=== PATIENT | female | born 1945 | race Caucasian/White ===

== ENCOUNTER 2017-07-15 10:13 | Emergency (ER) | payer MEDICARE ==
--- NOTE | 2017-07-15 11:23 | RAD ---
THREE VIEWS OF THE LEFT SHOULDER: HISTORY: Fell at home with left shoulder pain and deformity. FINDINGS: Three views of the left shoulder show a comminuted fracture of the left humeral neck. Mild degenerat adriana changes are seen in the glenohumeral joint. A pacemaker is partially visualized. IMPRESSION: Comminuted proximal left humeral fracture. POS: [facility]
[2017-07-15] MEDS ORDERED: Morphine 4 MG/ML VIAL ONE (11:40)
--- NOTE | 2017-07-15 12:30 | RAD ---
TWO VIEWS LEFT HUMERUS: Indication: Proximal humerus fracture. FINDINGS: There is a three-part proximal humerus fracture with fracture extending through the metadiaphyseal re gion and through the humeral head with a displaced greater tuberosity fracture component. No addition al fracture is grossly evident. There is partial visualization of a left chest wall pacemaker. IMPRESSION: Comminuted three-part proximal humerus fracture. POS: [facility]
== END 2017-07-15 13:39 | disposition home or self-care (01) ==
LOC: ERS 10:13
DX: S42.252A Displaced fracture of greater tuberosity of left humerus, initial encounter for closed fracture (principal); I11.0 Hypertensive heart disease with heart failure; I50.9 Heart failure, unspecified; W18.30XA Fall on same level, unspecified, initial encounter; Y92.009 Unspecified place in unspecified non-institutional (private) residence as the place of occurrence of the external cause
CPT/HCPCS: 96372; J2270

== ENCOUNTER 2017-07-22 06:56 | Outpatient (CLI) | payer MEDICARE | END 2017-07-22 06:57 | disposition home or self-care (01) | LOC: BICCT 06:56 | PROVIDERS: ATTEND Orthopaedic Surgery | DX: Z53.9 Procedure and treatment not carried out, unspecified reason (principal) ==

== ENCOUNTER 2017-08-04 12:07 | Inpatient (IN) | payer MEDICARE ==
[~2017-08-04 12:07] MED LIST: ISOVUE-370 76%-LOCM 1 ML ONE
--- NOTE | 2017-08-04 12:58 | RAD ---
AP CHEST: Indication: Difficulty breathing and taking full breaths for three days. Comparison: 11-14-16 FINDINGS: There is moderate cardiomegaly with pulmonary vascular congestion. There is suspicion for small bilat eral pleural effusions, left greater than right. AICD and midline sternotomy changes are similar. Chr onic osseous changes appear similar to the comparison study. There has been interval development of a 3-part proximal left humerus fracture when compared to the prior dated 11-14-16. This was seen on a r adiograph of the left humerus dated 07-15-17. IMPRESSION: 1. Findings suggesting mild CHF. Continued follow up is recommended. 2. Proximal left humerus fracture as seen on comparison study dated 07-15-17. POS: [facility]
[2017-08-04 13:41] LABS: #Basophils 0.1 thou/uL (0.0-0.2); #Eosinphils 0.2 thou/uL (0.0-0.7); #Lymphocytes 2.4 thou/uL (1.20-3.40); #Monocytes 0.5 thou/uL (0.11-0.59); #Neutrophils 7.5 thou/uL (1.40-6.50); %Basophils 0.5 % (0.0-1.0); %Eosinophils 1.5 % (0.0-10.0); %Lymphocytes 22.7 % (21.0-51.0); %Monocytes 4.5 % (0.0-10.0); %Neutrophils 70.9 % (42.0-75.0); Hemoglobin 12.3 g/dL (12.0-16.0); Mean Corpuscular HGB CONC 32.4 g/dL (32.0-36.0); Mean Corpuscular Hemoglobin 27.9 pg (27.0-31.0); Mean Corpuscular Volume 85.9 fl (81.0-99.0); Mean Platelet Volume 7.7 fL (7.4-10.4); Platelet Count 290 thou/uL (130-400); RBC Distribution Width 15.4 % (11.5-14.5); White Blood Cell (WBC) Count 10.6 thou/uL (4.8-10.8)
[2017-08-04 14:04] LABS: ALT (SGPT) 16 U/L (8-55); AST (SGOT) 19 U/L (5-34); Albumin 3.2 g/dL (3.4-4.8); Alkaline Phosphatase 108 U/L (40-150); Anion Gap 12 mmol/L (10-20); BUN (Urea Nitrogen) 19 mg/dL (9.8-20.1); Bilirubin, Total 0.7 mg/dL (0.2-1.2); CK (CPK) 73 U/L (29-168); Calc. Creatinine Clearance 0 mL/min (70-130); Calcium 9.2 mg/dL (7.8-10.44); Carbon Dioxide 29 mmol/L (23-31); Chloride 105 mmol/L (98-107); Estimated GFR-MDRD 88; Globulin 3.6 g/dL (2.4-3.5); Glucose 113 mg/dL (83-110); Protein, Total 6.8 g/dL (6.0-8.3); Sodium 143 mmol/L (136-145)
[2017-08-04 14:07] LABS: CKMB 2.1 ng/mL (0-6.6)
[2017-08-04 14:12] LABS: Potassium 2.9 mmol/L (3.5-5.1)
[2017-08-04 14:17] LABS: Troponin I 6.269 ng/mL (< 0.028)
[2017-08-04] MEDS ORDERED: Lorazepam 2 MG/ML VIAL ONE (14:37)
[2017-08-04] MEDS ORDERED: Morphine 4 MG/ML VIAL ONE (14:37)
[2017-08-04] MEDS ORDERED: Potassium Chloride 20 MEQ TAB ONE (14:38)
[2017-08-04] MEDS ORDERED: Nitroglycerin 2% Ointment 1 INCH/1 GM Packet ONE (15:25)
[2017-08-04 15:51] LABS: Magnesium 2.1 mg/dL (1.6-2.6); Phosphorus 3.4 mg/dL (2.3-4.7)
--- NOTE | 2017-08-04 16:03 | CT ---
CT ANGIOGRAM OF CHEST PERFORMED WITH INTRAVENOUS CONTRAST ENHANCEMENT WITH 3D RECONSTRUCTIONS: History: Cough, dyspnea. Comparison: 06-03-15 FINDINGS: The lungs are clear of any focal infiltrative process. Some atelectatic type changes in the lung base s and small bilateral pleural effusions, right larger than left. There is an enlarged node near the level of the aorticopulmonary window. It measures 2 cm in short ax is dimension. It has been present on previous exams. In reviewing a 09-02-10 study it measures approxi mately 15-16 mm in short axis dimension with fairly minimal interval overedge sewer a long time frame. P ost op sternotomy changes are present. A left breast prosthesis is noted. Visualized liver parenchyma shows no focal abnormalities. IMPRESSION: 1. Bibasilar atelectatic lung changes with some pleural changes along the left lateral thoracic wall which although not present on the previous 2014 study still has more of a chronic appearance. Some of this could be potentially related to some type of previous treatment such as radiation. I am not cer tain. I do not have a definite history of left breast cancer, even given left breast prosthesis. Clin ical correlation is recommended. 2. No CT evidence for pulmonary embolus. 3. Adenopathy in the aorticopulmonary window region, minimally increased as compared to the [address]. Given the fairly minimal interval change, I would favor that these are reactive nodes. POS: [facility]
[2017-08-04] MEDS ORDERED: Enoxaparin Sodium 30 MG/0.3 ML SYRINGE ONE (16:11)
[2017-08-04] MEDS ORDERED: Enoxaparin Sodium 100 MG/ML SYRINGE ONE ×2 (16:11→16:18)
[2017-08-04] MEDS ORDERED: Enoxaparin Sodium 40 MG/0.4 ML SYRINGE ONE (16:17)
[2017-08-04 18:55] LABS: Troponin I 6.431 ng/mL (< 0.028)
[2017-08-04] MEDS ORDERED: Aspirin 325 MG TAB PO SCH (19:00)
[2017-08-04] MEDS ORDERED: Furosemide 40 MG/4 ML VIAL SLOW IVP SCH (19:00)
[2017-08-04] MEDS ORDERED: Potassium Chloride 20 MEQ TAB PO SCH ×2 (19:15→21:00)
--- NOTE | 2017-08-04 19:51 | CON ---
DATE OF CONSULTATION: 08/04/2017 REASON FOR CONSULTATION: Non-STEMI and heart failure. PRIMARY FEED PROJECT ENGINEER: Dr. Jose Manuel Brar. HISTORY OF PRESENT ILLNESS: Ms. Fleming is a very pleasant 71-year-old white female who comes to the ospital for increased shortness of breath. She stated that for the last 4 days, she has been noticin g slow increase in her shortness of breath. She tried to make it go away by increasing her Lasix dos e, which she sometimes does and is able to stay out of the hospital. She noted that her breathing wa s just getting worse, so today, she decided to come in for evaluation. She was found to be in heart failure, given a dose of IV Lasix and Cardiology was consulted. She also had a troponin drawn that w as higher than it has been before at 6.2 with a normal CK-MB. She denies any chest pain, tightness, pressures, just shortness of breath as above. PAST MEDICAL HISTORY: 1. Ischemic cardiomyopathy with previous bypass. 2. Severe cardiomyopathy with an EF of 20-25%. 3. Placement of AICD. 4. Hypertension. 5. Hyperlipidemia. 6. Obstructive sleep apnea. PAST SURGICAL HISTORY: 1. Coronary artery bypass grafting with a LEIVA to the LAD, a vein to an OM, and a vein to PDA. This was in 2010. 2. Pseudoaneurysm repair in right femoral artery after a central line was placed. 3. Left mastectomy. ALLERGIES: LISINOPRIL gives her cough. OUTPATIENT MEDICATIONS: Include, 1. Aldactone 25 mg a day. 2. Losartan 100 mg a day. 3. Garlic. 4. Furosemide 40 mg a day. 5. Celexa. 6. Coreg 12.5 mg p.o. b.i.d. 7. Lipitor 20 mg at bedtime. 8. Aspirin 325 a day. SOCIAL HISTORY: No alcohol, tobacco or drugs. FAMILY HISTORY: Significant for early coronary artery disease. REVIEW OF SYSTEMS: A 12-point review of systems was done and is all negative unless stated in the hi story of present illness. PHYSICAL EXAMINATION: VITAL SIGNS: Temperature 97.2, pulse 103, respiration rate 18, satting 92% on 3 liters nasal cannula . GENERAL: Awake, alert, oriented x3, in mild respiratory distress. HEENT: Normocephalic, atraumatic. NECK: Supple. LUNGS: Have bilateral crackles at the bases CARDIOVASCULAR: S1, S2, no S3 or S4. There is a grade 2/6 systolic murmur in the right upper sterna l border. ABDOMEN: Soft, positive bowel sounds. There is a large reducible hernia in the lower abdomen on the right lower quadrant. EXTREMITIES: 1+ edema. SKIN: Warm and dry. LABORATORY WORK: Reviewed. White count of 10.6, hemoglobin of 12.3, hematocrit of 37, platelet coun t of 290. Coags, D-dimer of 3.23. Chemistry with a sodium of 143, potassium was low at 2.9, chlorid e of 105, carbon dioxide of 29, anion gap of 12, BUN of 19, creatinine 0.66, GFR of 88, glucose of 11 3. Lactic acid was normal. CK-MB was 2.1, troponin at 6.2. BNP was 1262, albumin of 3.2. EKG was reviewed, no ischemic changes. Chest x-ray: Mild CHF proximal left humerus fracture which was seen back in early July. CT of the chest showed no evidence of pulmonary embolism. There are bibasilar atelectatic lung gilmore es with pleural changes along left lateral thoracic wall. Adenopathy in the aortopulmonary window re gion. ASSESSMENT AND PLAN: 1. Acute on chronic systolic heart failure. 2. Non-ST elevation myocardial infarction. 3. Severe ischemic cardiomyopathy, ejection fraction of 20-25%. PLAN: 1. Continue IV diuresis. 2. Currently she is unable to lay flat for further risk stratification for the heart catheterization . She had a heart catheterization back in 2014. Her LEIVA to LAD was patent. The vein graft to an O M, and a vein graft to right were both patent. She is about 7 years out of her bypass. She may need to have this re-imaged. This is the highest troponin she has had during her admissions for heart fa ilure. 3. We will attempt to do heart catheterization once she is able to lay flat. She is unable at this time. 4. We will continue IV Lasix at 40 mg twice a day. 5. Aggressive potassium replacement. Thank you for letting us to participate in the care of your patient. We will follow.
[2017-08-04] MEDS ORDERED: Calcium Carbonate 500 MG ChewTAB PO PRN (20:02)
[2017-08-04] MEDS ORDERED: Mag-Al 1200 mg/1200 mg/30 ML UDCUP PO PRN (20:02)
[2017-08-04] MEDS ORDERED: Senokot 8.6 MG TAB PO PRN (20:02)
--- NOTE | 2017-08-04 20:19 | PDOC.EVN ---
Event Note - Event Note Event Note: Patient seen and examined. Orders completed.
[2017-08-04 20:38] LABS: Troponin I 7.102 ng/mL (< 0.028)
[2017-08-05] MEDS: Famotidine 20 MG TAB PO SCH ×3 (00:17→22:46)
[2017-08-05] MEDS: Docusate 100 MG CAP PO SCH ×3 (00:29→22:45)
[2017-08-05] MEDS: Carvedilol 3.125 MG TAB PO SCH ×4 (00:29→22:45)
[2017-08-05] MEDS: Nitroglycerin 0.4 MG TAB (25 Tab Bottle) PO PRN ×2 (03:09→03:14)
[2017-08-05] MEDS: Furosemide 40 MG/4 ML VIAL SLOW IVP SCH ×2 (04:59→13:44)
[2017-08-05] MEDS ORDERED: Lorazepam 1 MG TAB PO SCH (05:15)
[2017-08-05 06:19] LABS: #Eosinphils 0.1 thou/uL (0.0-0.7); #Lymphocytes 1.7 thou/uL (1.20-3.40); #Monocytes 0.6 thou/uL (0.11-0.59); #Neutrophils 7.2 thou/uL (1.40-6.50); %Basophils 0.5 % (0.0-1.0); %Eosinophils 1.4 % (0.0-10.0); %Lymphocytes 17.4 % (21.0-51.0); %Monocytes 6.3 % (0.0-10.0); %Neutrophils 74.5 % (42.0-75.0); Hemoglobin 11.6 g/dL (12.0-16.0); Mean Corpuscular HGB CONC 32.2 g/dL (32.0-36.0); Mean Corpuscular Hemoglobin 27.7 pg (27.0-31.0); Mean Corpuscular Volume 86.1 fl (81.0-99.0); Platelet Count 277 thou/uL (130-400); RBC Distribution Width 15.2 % (11.5-14.5); Red Blood Cell (RBC) Count 4.19 mill/uL (4.20-5.40); White Blood Cell (WBC) Count 9.7 thou/uL (4.8-10.8)
--- NOTE | 2017-08-05 06:28 | HP ---
DATE OF ADMISSION: 08/04/2017 The patient was seen and examined on 08/04/2017. CHIEF COMPLAINT: Shortness of breath. HISTORY OF PRESENT ILLNESS: Patient is a 71-year-old female with ischemic cardiomyopathy and chronic systolic heart failure who presented to the hospital with worsening shortness of breath over the las t 3-4 days. The shortness of breath is mainly on [id number] exertion. She denies any chest pa in, palpitations, lightheadedness, dizziness, or syncope. No recent immobilization or travel. She h ad some cough which was essentially nonproductive. She is compliant with fluid restriction including her medications. Her last hospitalization at this facility was in 11/2013 for hypertensive crisis a nd congestive heart failure exacerbation. In the emergency room, her initial vital signs showed temperature 97.7, respirations 24, pulse rate o f 122 with a blood pressure of 136/103 with O2 saturation of 92% on 2-liter nasal cannula. Her EKG s howed sinus rhythm with multiple PVCs. BNP was 1262 with troponin of 6.[address] rashard ogram of the chest was negative for pulmonary embolism. It showed pulmonary vascular congestion. Sh e received 1 mg/kg dose of Lovenox with nitro-patch, potassium, and DuoNeb in the emergency room. PAST MEDICAL HISTORY: 1. Chronic systolic heart failure, ejection fraction 20% to 25% range. 2. Morbid obesity with BMI of 42.6 3. Chronic systolic heart failure, ejection fraction 20% to 25% range. 4. Coronary artery disease, status post CABG. 5. Hypertension. 6. Hyperlipidemia. 7. Obstructive sleep apnea, not tolerating CPAP. 8. Anxiety. PAST SURGICAL HISTORY: 1. Coronary artery bypass grafting. 2. Left mastectomy. 3. Hysterectomy. 4. Cholecystectomy. 5. Appendectomy. 6. Right knee surgery. ALLERGIES: LISINOPRIL. CURRENT HOME MEDICATIONS: The patient is unable to recall any of her home medications. FAMILY HISTORY: Positive for heart disease in several family members. SOCIAL HISTORY: The patient currently lives at home. No tobacco, alcohol, or drug use. CODE STATUS: She is FULL CODE, makes her own decisions with the help of her family. REVIEW OF SYSTEMS: The following complete review of systems was negative, unless otherwise mentioned in the HPI or below: Constitutional: Weight loss or gain, ability to conduct usual activities. Sk in: Rash, itching. Eyes: Double vision, pain. ENT/Mouth: Nose bleeding, neck stiffness, pain, te nderness. Cardiovascular: Palpitations, dyspnea on exertion, orthopnea. Respiratory: Shortness of breath, wheezing, cough, hemoptysis, fever or night sweats. Gastrointestinal: Poor appetite, abdom inal pain, heartburn, nausea, vomiting, constipation, or diarrhea. Genitourinary: Urgency, frequenc y, dysuria, nocturia. Musculoskeletal: Pain, swelling. Neurologic/Psychiatric: Anxiety, depressio n. Allergy/Immunologic: Skin rash, bleeding tendency. PHYSICAL EXAMINATION: VITAL SIGNS: As discussed above. GENERAL: A 71-year-old female in mild respiratory distress. Able to complete short phrases. HEENT: Head, atraumatic, normocephalic. Sclerae are anicteric. Moist mucous membranes. No oral le alex. NECK: Supple. JVD elevated. No carotid bruit. LUNGS: Showed bibasilar crackles with scattered rhonchi. No significant wheezing. Lungs were symme trical. Trachea in midline. ABDOMEN: Soft, obese. Bowel sounds present. EXTREMITIES: 2+ edema in bilateral lower extremities. No calf tenderness. NEUROLOGIC: Grossly nonfocal. Moves all four extremities. Power was 5/5 in all extremities. PSYCHIATRIC: The patient is alert, awake, oriented x3. SKIN: Warm and dry. LYMPH NODES: No palpable lymph nodes in the neck. MUSCULOSKELETAL: No joint swelling or tenderness. PERIPHERAL VASCULAR: Radial pulses palpable bilaterally, low volume. LABORATORY AND DIAGNOSTIC FINDINGS: As discussed above. 1. WBC was 10.6 with platelet count 290 and H and H of 12.3. 2. D-dimer was 3.23. 3. Influenza testing was negative. 4. Repeat troponin was 7.102. 5. CT angiogram of the chest by my review as discussed above. Chest x-ray by my review showed pulmo nary vascular congestion. IMPRESSION: 1. Acute on chronic systolic heart failure exacerbation, probably precipitated by ischemic event. 2. Non-ST elevation myocardial infarction. 3. Ischemic cardiomyopathy with ejection fraction 20% to 25%. 4. Obstructive sleep apnea, not tolerating CPAP. 5. Morbid obesity with a body mass index of 42.6. 6. Hypokalemia. 7. Chronic kidney disease, stage 2. 8. Elevated D-dimer with negative CT angiogram of the chest. 9. Hypertensive urgency. 10. Hyperlipidemia. 11. Anxiety. PLAN: The patient will be monitored in the telemetry unit. We will start her on diuresis. Replace potassium. Consult Cardiology. One dose of Lovenox has been given. Patient is unable to lie down o r cardiac catheterization at this time. We will repeat labs in a.m., fluid restriction, heart failur e education, aspirin. We will confirm her home medications. Plan of care was discussed with the patient in detail. She stated understanding. Low dose beta-bloc ker will be resumed based on last discharge summary.
[2017-08-05 06:41] LABS: ALT (SGPT) 13 U/L (8-55); AST (SGOT) 19 U/L (5-34); Albumin 3.3 g/dL (3.4-4.8); Alkaline Phosphatase 106 U/L (40-150); Anion Gap 17 mmol/L (10-20); BUN (Urea Nitrogen) 15 mg/dL (9.8-20.1); Calc. Creatinine Clearance 143 mL/min (70-130); Carbon Dioxide 25 mmol/L (23-31); Chloride 103 mmol/L (98-107); Estimated GFR-MDRD Greater than 90; Globulin 3.5 g/dL (2.4-3.5); Glucose 99 mg/dL (83-110); Magnesium 1.9 mg/dL (1.6-2.6); Phosphorus 3.2 mg/dL (2.3-4.7); Potassium 3.7 mmol/L (3.5-5.1); Protein, Total 6.8 g/dL (6.0-8.3); Sodium 141 mmol/L (136-145)
[2017-08-05] MEDS ORDERED: Potassium Chloride 20 MEQ TAB PO SCH (08:00)
[2017-08-05] MEDS: Aspirin 325 mg Enteric Coated Tablet PO SCH (09:37)
[2017-08-05 10:51] LABS: Troponin I 5.331 ng/mL (< 0.028)
[2017-08-05] MEDS: Potassium Chloride 20 MEQ TAB PO SCH ×2 (11:46→17:34)
--- NOTE | 2017-08-05 12:00 | PDOC.CTH ---
Cardiology Progress Note - Subjective She continues to be SOB but has had a mild improvement. She is about 2L negative so far. She tried sitting up on the side of the bed and became significantly SOB. - Objective Vital Signs Temp Pulse Resp BP Pulse Ox 08/05/17 08:08 96.8 F L 94 17 134/97 H 97 08/05/17 04:21 89 20 147/89 H 100 08/05/17 04:00 99.9 F H 86 18 145/65 H 95 08/05/17 03:20 78 18 160/88 H 98 08/05/17 03:05 98.3 F 109 H 20 136/67 90 L Weight 240 lb 11.2 oz 08/04/17 08/05/17 08/06/17 06:59 06:59 06:59 Intake Total 760 Output Total 3150 Balance -2390 - Physical Examination General/Neuro: alert & oriented x3, NAD Neck: no JVD present Lungs: other: (reduced breath sounds. ) Heart: RRR Abdomen: NT/ND Extremities: + edema B (2+) - Telemetry Telemetry Rhythm: NSR, PVC's - Labs Result Diagrams: 08/05/17 05:12 08/05/17 05:12 Troponin/CKMB CK-MB (CK-2) 2.1 ng/mL (0-6.6) 08/04/17 13:20 Troponin I 5.331 ng/mL (< 0.028) H* 08/05/17 05:12 - Assessment/Plan 1. Acute on chronic systolic heart failure 2. NSTEMI 3. Severe ischemic dilated CM, EF at 20-25% 4. CAD s/p CABG on 2010 5. Presence of an AICD. PLAN: - Continue IV diuresis. - Fluid restrict - Continue BB, consider entresto in the near future if BP allows.
[2017-08-05 12:50] LABS: Bacteria/HPF None Seen HPF (None Seen); Bilirubin Small (Negative); Blood, Urine Moderate (Negative); Clarity CLEAR (Clear); Glucose, Urine (Dipstick) Negative (Negative); Hyaline Casts/LPF 4-6 HYALINE CAST LPF (0-3 Hyaline); Leukocyte Large (Negative); Nitrite Negative (Negative); Pathc Cast-AUWi Flag 0.13 (0-2.49); Protein, Urine (Dipstick) Negative (Neg-Trace); RBC/HPF 21-50 HPF (0-3); Specific Gravity, Urine 1.021 (1.002-1.036); Squamous Epithelial None Seen HPF (0-3); WBC/HPF 21-50 HPF (0-3)
[2017-08-05 12:51] LABS: Renal Epithelial None Seen HPF (0-3); Transitional Epithelial NONE SEEN HPF (0-3)
[2017-08-05] MEDS: ALPRAZolam 0.25 MG TAB PO PRN ×2 (14:21→22:53)
--- NOTE | 2017-08-05 21:08 | PDOC.PN ---
- Subjective Encounter Start Date: 08/05/17 Encounter Start Time: 09:00 Patient seen and examined. SOB improving. No CP. No overnight events - Objective Resuscitation Status: Resuscitation Status FULL:Full Resuscitation MAR Reviewed: Yes Vital Signs & Weight: Vital Signs (12 hours) Temp Pulse Resp BP Pulse Ox 08/05/17 16:00 97.5 F L 97 17 186/86 H 96 08/05/17 14:21 95 22 H 92 L 08/05/17 12:00 97.7 F 84 21 H 134/78 98 Weight Weight 240 lb 11.2 oz I&O: 08/04/17 08/05/17 08/06/17 06:59 06:59 06:59 Intake Total 760 Output Total 3150 Balance -2390 Result Diagrams: 08/05/17 05:12 08/06/17 05:36 EKG Reviewed by me: Yes (Tele SR with PVCs) Phys Exam - Physical Examination Constitutional: NAD Respiratory: no wheezing, no rhonchi Bibasilar rales, Symmetrical Cardiovascular: RRR, no rub no heaves/pulsations Gastrointestinal: soft, non-tender, no distention, positive bowel sounds Musculoskeletal: edema present Neurological: non-focal, moves all 4 limbs Psychiatric: normal affect, A&O x 3 Dx/Plan - Plan DVT proph w/lovenox IMPRESSION: 1. Acute on chronic systolic heart failure exacerbation 2. Non-ST elevation myocardial infarction. 3. Ischemic cardiomyopathy with ejection fraction 20% to 25%. 4. Obstructive sleep apnea, not tolerating CPAP. 5. Morbid obesity with a body mass index of 42.6. 6. Hypokalemia. 7. Chronic kidney disease, stage 2. 8. Elevated D-dimer with negative CT angiogram of the chest. 9. Hypertensive urgency. 10. Hyperlipidemia. 11. Anxiety. PLAN: * Cont diuresis * AM labs * Cardiology following * Cardiac Cath in 1-2 days * Sleep study as outpt * Cont current meds as below * Cardiac rehab Review of Systems - Review of Systems Constitutional: negative: fever, chills, sweats, weakness, malaise Gastrointestinal: negative: Nausea, Vomiting, Abdominal Pain, Diarrhea, Constipation, Melena, Hematochezia Genitourinary: negative: Dysuria, Frequency, Incontinence, Hematuria, Retention - Medications/Allergies Allergies/Adverse Reactions: Allergies Allergy/AdvReac Type Severity Reaction Status Date / Time lisinopril Allergy Verified 07/24/16 02:02 Medications: Current Medications Acetaminophen (Tylenol) 650 mg PO Q4H PRN PRN Reason: Headache/Fever or Pain Al Hydroxide/Mg Hydroxide (Maalox) 30 ml PO Q6H PRN PRN Reason: Heartburn or Indigestion Last Admin: 08/05/17 03:09 Dose: 30 ml Albuterol/Ipratropium (Duoneb) 3 ml NEB [id number] PRN PRN Reason: SOB &/or Wheezing Last Admin: 08/05/17 14:21 Dose: 3 ml Alprazolam (Xanax) 0.25 mg PO BIDPRN PRN PRN Reason: Anxiety Last Admin: 08/05/17 14:21 Dose: 0.25 mg Aspirin (Ecotrin) 325 mg PO DAILY [facility] Last Admin: 08/05/17 09:37 Dose: 325 mg Calcium Carbonate (Tums) 1,000 mg PO Q4H PRN PRN Reason: Heartburn or Indigestion Carvedilol (Coreg) 3.125 mg PO BID [facility] Last Admin: 08/05/17 09:37 Dose: 3.125 mg Docusate Sodium (Colace) 100 mg PO BID [facility] Last Admin: 08/05/17 09:37 Dose: 100 mg Enoxaparin Sodium (Lovenox) 40 mg SC 2100 [facility] Famotidine (Pepcid) 20 mg PO BID [facility] Last Admin: 08/05/17 09:37 Dose: 20 mg Furosemide (Lasix) 40 mg SLOW IVP 0600,1400 [facility] Last Admin: 08/05/17 13:44 Dose: 40 mg Nitroglycerin (Nitrostat) 0.4 mg PO Q5MIN PRN PRN Reason: Chest Pain Last Admin: 08/05/17 03:14 Dose: 0.4 mg Potassium Chloride (K-Dur) 20 meq PO TID[facility] Last Admin: 08/05/17 17:34 Dose: 20 meq Senna (Senokot) 2 tab PO HSPRN PRN PRN Reason: Constipation
[2017-08-05] MEDS: Enoxaparin Sodium 40 MG/0.4 ML SYRINGE SC SCH (22:46)
[2017-08-06] MEDS: Furosemide 40 MG/4 ML VIAL SLOW IVP SCH ×2 (06:17→16:35)
[2017-08-06 06:44] LABS: ALT (SGPT) 12 U/L (8-55); AST (SGOT) 18 U/L (5-34); Albumin 3.3 g/dL (3.4-4.8); Alkaline Phosphatase 106 U/L (40-150); Anion Gap 16 mmol/L (10-20); BUN (Urea Nitrogen) 16 mg/dL (9.8-20.1); Bilirubin, Total 0.8 mg/dL (0.2-1.2); Calc. Creatinine Clearance 126 mL/min (70-130); Calcium 9.5 mg/dL (7.8-10.44); Carbon Dioxide 25 mmol/L (23-31); Chloride 103 mmol/L (98-107); Estimated GFR-MDRD 84; Globulin 3.7 g/dL (2.4-3.5); Glucose 111 mg/dL (83-110); Potassium 3.5 mmol/L (3.5-5.1); Sodium 140 mmol/L (136-145)
[2017-08-06] MEDS: Famotidine 20 MG TAB PO SCH ×2 (10:40→20:52)
[2017-08-06] MEDS: ALPRAZolam 0.25 MG TAB PO PRN ×2 (10:40→20:52)
[2017-08-06] MEDS: Aspirin 325 mg Enteric Coated Tablet PO SCH (10:40)
[2017-08-06] MEDS: Docusate 100 MG CAP PO SCH ×2 (10:41→20:53)
[2017-08-06] MEDS: Carvedilol 3.125 MG TAB PO SCH ×2 (10:41→20:52)
[2017-08-06] MEDS: Potassium Chloride 20 MEQ TAB PO SCH ×4 (10:42→20:52)
[2017-08-06 10:53] VITALS: BMI 40.3
--- NOTE | 2017-08-06 11:06 | PDOC.PN ---
- Subjective Encounter Start Date: 08/06/17 Encounter Start Time: 10:55 Patient seen and examined. Diffuse aches and pain. SOB improving. No overnight events - Objective Resuscitation Status: Resuscitation Status FULL:Full Resuscitation MAR Reviewed: Yes Vital Signs & Weight: Vital Signs (12 hours) Temp Pulse Resp BP Pulse Ox 08/06/17 09:00 98.6 F 83 20 178/80 H 93 L 08/06/17 04:00 97.5 F L 84 15 162/91 H 97 Weight Weight 235 lb I&O: 08/05/17 08/06/17 08/07/17 06:59 06:59 06:59 Intake Total 760 560 Output Total 3150 2250 1999 Balance -2390 -1690 -1999 Result Diagrams: 08/05/17 05:12 08/06/17 05:36 EKG Reviewed by me: Yes (Tele SR with PVCs) Phys Exam - Physical Examination Constitutional: NAD Respiratory: no wheezing, no rhonchi Cardiovascular: RRR, no rub Gastrointestinal: soft, non-tender, positive bowel sounds Musculoskeletal: edema present (improving) Neurological: non-focal, moves all 4 limbs Dx/Plan - Plan DVT proph w/lovenox, DVT proph w/SCDs IMPRESSION: 1. Acute on chronic systolic heart failure exacerbation - improving 2. Non-ST elevation myocardial infarction. 3. Ischemic cardiomyopathy with ejection fraction 20% to 25%. 4. Obstructive sleep apnea, not tolerating CPAP. 5. Morbid obesity with a body mass index of 42.6. 6. Hypokalemia. 7. Chronic kidney disease, stage 2. 8. Elevated D-dimer with negative CT angiogram of the chest. 9. Hypertensive urgency. 10. Hyperlipidemia. 11. Anxiety. 12. PVCs PLAN: * Cardiology following * Cont diuresis * AM labs * Change Potassium to QID * Cardiac Cath in 1-2 days * Cont current meds as below * Cont Cardiac rehab * Sleep study as outpt Review of Systems - Review of Systems Cardiovascular: negative: chest pain, palpitations, orthopnea, paroxysmal nocturnal dyspnea, edema, light headedness Gastrointestinal: negative: Nausea, Vomiting, Abdominal Pain, Diarrhea, Constipation, Melena, Hematochezia - Medications/Allergies Allergies/Adverse Reactions: Allergies Allergy/AdvReac Type Severity Reaction Status Date / Time lisinopril Allergy Verified 07/24/16 02:02 Medications: Current Medications Acetaminophen (Tylenol) 650 mg PO Q4H PRN PRN Reason: Headache/Fever or Pain Al Hydroxide/Mg Hydroxide (Maalox) 30 ml PO Q6H PRN PRN Reason: Heartburn or Indigestion Last Admin: 08/05/17 03:09 Dose: 30 ml Albuterol/Ipratropium (Duoneb) 3 ml NEB [id number] PRN PRN Reason: SOB &/or Wheezing Last Admin: 08/05/17 14:21 Dose: 3 ml Alprazolam (Xanax) 0.25 mg PO BIDPRN PRN PRN Reason: Anxiety Last Admin: 08/06/17 10:40 Dose: 0.25 mg Aspirin (Ecotrin) 325 mg PO DAILY [facility] Last Admin: 08/06/17 10:40 Dose: 325 mg Calcium Carbonate (Tums) 1,000 mg PO Q4H PRN PRN Reason: Heartburn or Indigestion Carvedilol (Coreg) 3.125 mg PO BID [facility] Last Admin: 08/06/17 10:41 Dose: 3.125 mg Docusate Sodium (Colace) 100 mg PO BID [facility] Last Admin: 08/06/17 10:41 Dose: Not Given Enoxaparin Sodium (Lovenox) 40 mg SC 2100 [facility] Last Admin: 08/05/17 22:46 Dose: 40 mg Famotidine (Pepcid) 20 mg PO BID [facility] Last Admin: 08/06/17 10:40 Dose: 20 mg Furosemide (Lasix) 40 mg SLOW IVP 0600,1400 [facility] Last Admin: 08/06/17 06:17 Dose: 40 mg Nitroglycerin (Nitrostat) 0.4 mg PO Q5MIN PRN PRN Reason: Chest Pain Last Admin: 08/05/17 03:14 Dose: 0.4 mg Potassium Chloride (K-Dur) 20 meq PO QID-WM [facility] Last Admin: 08/06/17 10:42 Dose: 20 meq Senna (Senokot) 2 tab PO HSPRN PRN PRN Reason: Constipation
[2017-08-06] MEDS: Acetaminophen 325 MG TAB PO PRN (12:22)
[2017-08-06] MEDS: Enoxaparin Sodium 40 MG/0.4 ML SYRINGE SC SCH (20:52)
--- NOTE | 2017-08-06 21:01 | PDOC.CTH ---
Cardiology Progress Note - Subjective Her breathing is better today. Was able to sleep better last night. - Objective Vital Signs Temp Pulse Resp BP Pulse Ox 08/06/17 09:00 98.6 F 83 20 178/80 H 93 L Weight 235 lb 08/05/17 08/06/17 08/07/17 06:59 06:59 06:59 Intake Total 760 560 Output Total 3150 2250 1999 Balance -2390 -8490 -1999 - Physical Examination General/Neuro: alert & oriented x3, NAD Neck: no JVD present Lungs: other: (mild crackles. ) Heart: RRR Abdomen: NT/ND Extremities: + edema B (1+) - Telemetry Telemetry Rhythm: NSR - Labs Result Diagrams: 08/05/17 05:12 08/06/17 05:36 Troponin/CKMB CK-MB (CK-2) 2.1 ng/mL (0-6.6) 08/04/17 13:20 Troponin I 5.331 ng/mL (< 0.028) H* 08/05/17 05:12 - Assessment/Plan 1. Acute on chronic systolic heart failure 2. NSTEMI 3. Severe ischemic dilated CM, EF at 20-25% 4. CAD s/p CABG on 2010 5. PLAN: - Continue IV diuresis. - Fluid restrict - Continue BB
[2017-08-07] MEDS: ALPRAZolam 0.25 MG TAB PO PRN ×2 (05:55→20:37)
[2017-08-07] MEDS: Furosemide 40 MG/4 ML VIAL SLOW IVP SCH ×2 (05:55→13:33)
[2017-08-07] MEDS: Acetaminophen 325 MG TAB PO PRN ×2 (05:59→20:37)
[2017-08-07 06:47] LABS: ALT (SGPT) 14 U/L (8-55); AST (SGOT) 16 U/L (5-34); Albumin 3.1 g/dL (3.4-4.8); Alkaline Phosphatase 109 U/L (40-150); Anion Gap 14 mmol/L (10-20); BUN (Urea Nitrogen) 17 mg/dL (9.8-20.1); Bilirubin, Total 0.7 mg/dL (0.2-1.2); Calc. Creatinine Clearance 114 mL/min (70-130); Calcium 9.2 mg/dL (7.8-10.44); Carbon Dioxide 29 mmol/L (23-31); Chloride 101 mmol/L (98-107); Estimated GFR-MDRD 75; Globulin 3.9 g/dL (2.4-3.5); Glucose 100 mg/dL (83-110); Magnesium 2.1 mg/dL (1.6-2.6); Phosphorus 3.4 mg/dL (2.3-4.7); Potassium 3.9 mmol/L (3.5-5.1); Sodium 140 mmol/L (136-145)
[2017-08-07] MEDS: Potassium Chloride 20 MEQ TAB PO SCH ×4 (09:14→20:37)
[2017-08-07] MEDS: Aspirin 325 mg Enteric Coated Tablet PO SCH (09:15)
[2017-08-07] MEDS: Docusate 100 MG CAP PO SCH ×2 (09:15→20:38)
[2017-08-07] MEDS: Carvedilol 3.125 MG TAB PO SCH ×2 (09:15→20:37)
[2017-08-07] MEDS: Famotidine 20 MG TAB PO SCH ×2 (09:15→20:37)
[2017-08-07] MEDS ORDERED: Sodium Chloride 0.9% 10 ML ONE (13:26)
--- NOTE | 2017-08-07 16:56 | PDOC.CTH ---
Cardiology Progress Note - Subjective She is breathing better today. Much more comfortable on the bed. - Objective Vital Signs Temp Pulse Resp BP Pulse Ox 08/07/17 12:00 97.7 F 87 20 129/83 93 L 08/07/17 08:00 96.2 F L 90 20 135/81 98 Weight 234 lb 08/06/17 08/07/17 08/08/17 06:59 06:59 06:59 Intake Total 560 1055 Output Total 2250 3850 Balance -1690 -2795 - Physical Examination General/Neuro: alert & oriented x3, NAD Neck: no JVD present Lungs: unlabored respirations Heart: RRR Abdomen: NT/ND Extremities: + edema B (Trace) - Telemetry Telemetry Rhythm: NSR - Labs Result Diagrams: 08/05/17 05:12 08/07/17 06:01 Troponin/CKMB CK-MB (CK-2) 2.1 ng/mL (0-6.6) 08/04/17 13:20 Troponin I 5.331 ng/mL (< 0.028) H* 08/05/17 05:12 - Assessment/Plan 1. Acute on chronic systolic heart failure 2. NSTEMI 3. Severe ischemic dilated CM, EF at 20-25% 4. CAD s/p CABG on 2010 5. PLAN: - Switch to PO lasix. - Fluid restrict - Continue BB - May discharge home tomorrow if still improved.
[2017-08-07] MEDS: Nystatin Powder 15 GM BOT TOP SCH (20:38)
[2017-08-07] MEDS: Enoxaparin Sodium 40 MG/0.4 ML SYRINGE SC SCH (20:38)
--- NOTE | 2017-08-07 21:48 | PDOC.PN ---
- Subjective Encounter Start Date: 08/07/17 Encounter Start Time: 19:00 Patient seen and examined. No new complaints. No overnight events. SOB improving. No CP - Objective Resuscitation Status: Resuscitation Status FULL:Full Resuscitation MAR Reviewed: Yes Vital Signs & Weight: Vital Signs (12 hours) Temp Pulse Resp BP BP Pulse Ox 08/07/17 16:00 98.1 F 83 24 H 166/72 H 97 08/07/17 12:00 97.7 F 87 20 129/83 93 L Weight Weight 234 lb I&O: 08/06/17 08/07/17 08/08/17 06:59 06:59 06:59 Intake Total 560 1055 750 Output Total 2250 4190 6795 Balance -0887 -4693 -5892 Result Diagrams: 08/05/17 05:12 08/07/17 06:01 Additional Labs: Accuchecks 08/07/17 08/07/17 08/07/17 19:54 17:21 11:16 POC Glucose 155 H 107 128 H EKG Reviewed by me: Yes (Tele SR) Phys Exam - Physical Examination Constitutional: NAD Respiratory: no wheezing, no rhonchi Cardiovascular: RRR, no rub Gastrointestinal: soft, non-tender, positive bowel sounds Musculoskeletal: edema present (improving) Neurological: moves all 4 limbs Dx/Plan - Plan DVT proph w/SCDs IMPRESSION: 1. Acute on chronic systolic heart failure exacerbation - improving 2. Non-ST elevation myocardial infarction. 3. Ischemic cardiomyopathy with ejection fraction 20% to 25%. 4. Obstructive sleep apnea, not tolerating CPAP. 5. Morbid obesity with a body mass index of 42.6. 6. Hypokalemia. 7. Chronic kidney disease, stage 2. 8. Elevated D-dimer with negative CT angiogram of the chest. 9. Hypertensive urgency. 10. Hyperlipidemia. 11. Anxiety. 12. PVCs PLAN: * Cont diuresis for 1 more day * AM labs * Cont current meds as below * Cont current meds as below * Cont Cardiac rehab * Sleep study as outpt Review of Systems - Review of Systems Respiratory: negative: Cough, Dry, Shortness of Breath, Hemoptysis, SOB with Excertion, Pleuritic Pain, Sputum, Wheezing Cardiovascular: negative: chest pain, palpitations, orthopnea, paroxysmal nocturnal dyspnea, edema, light headedness - Medications/Allergies Allergies/Adverse Reactions: Allergies Allergy/AdvReac Type Severity Reaction Status Date / Time lisinopril Allergy Verified 07/24/16 02:02 Medications: Current Medications Acetaminophen (Tylenol) 650 mg PO Q4H PRN PRN Reason: Headache/Fever or Pain Last Admin: 08/07/17 20:37 Dose: 650 mg Al Hydroxide/Mg Hydroxide (Maalox) 30 ml PO Q6H PRN PRN Reason: Heartburn or Indigestion Last Admin: 08/05/17 03:09 Dose: 30 ml Albuterol/Ipratropium (Duoneb) 3 ml NEB [id number] PRN PRN Reason: SOB &/or Wheezing Last Admin: 08/05/17 14:21 Dose: 3 ml Alprazolam (Xanax) 0.25 mg PO BIDPRN PRN PRN Reason: Anxiety Last Admin: 08/07/17 20:37 Dose: 0.25 mg Aspirin (Ecotrin) 325 mg PO DAILY [facility] Last Admin: 08/07/17 09:15 Dose: 325 mg Calcium Carbonate (Tums) 1,000 mg PO Q4H PRN PRN Reason: Heartburn or Indigestion Carvedilol (Coreg) 3.125 mg PO BID [facility] Last Admin: 08/07/17 20:37 Dose: 3.125 mg Docusate Sodium (Colace) 100 mg PO BID [facility] Last Admin: 08/07/17 20:38 Dose: Not Given Enoxaparin Sodium (Lovenox) 40 mg SC 2100 [facility] Last Admin: 08/07/17 20:38 Dose: 40 mg Famotidine (Pepcid) 20 mg PO BID [facility] Last Admin: 08/07/17 20:37 Dose: 20 mg Furosemide (Lasix) 40 mg SLOW IVP 0600,1400 [facility] Last Admin: 08/07/17 13:33 Dose: 40 mg Nitroglycerin (Nitrostat) 0.4 mg PO Q5MIN PRN PRN Reason: Chest Pain Last Admin: 08/05/17 03:14 Dose: 0.4 mg Nystatin (Mycostatin Powder) 0 gm TOP BID [facility] Last Admin: 08/07/17 20:38 Dose: 1 applic Potassium Chloride (K-Dur) 20 meq PO QID-WM [facility] Last Admin: 08/07/17 20:37 Dose: 20 meq Senna (Senokot) 2 tab PO HSPRN PRN PRN Reason: Constipation
[2017-08-08] MEDS: Acetaminophen 325 MG TAB PO PRN (03:29)
[2017-08-08] MEDS: Furosemide 40 MG/4 ML VIAL SLOW IVP SCH (06:16)
[2017-08-08] MEDS ORDERED: Sodium Chloride 0.9% 10 ML ONE (08:10)
[2017-08-08] MEDS: Aspirin 325 mg Enteric Coated Tablet PO SCH (09:37)
[2017-08-08] MEDS: Carvedilol 3.125 MG TAB PO SCH (09:38)
[2017-08-08] MEDS: Potassium Chloride 20 MEQ TAB PO SCH (09:38)
[2017-08-08] MEDS: Docusate 100 MG CAP PO SCH (09:39)
[2017-08-08] MEDS: Famotidine 20 MG TAB PO SCH (09:39)
[2017-08-08] MEDS: Nystatin Powder 15 GM BOT TOP SCH (09:40)
--- NOTE | 2017-08-08 10:06 | DIS ---
DATE OF ADMISSION: 08/04/2017 DATE OF DISCHARGE: 08/08/2017 DISCHARGE DISPOSITION: Home. FOLLOWUP: 1. Follow up with primary care physician, Dr. Taniya Kim in 1 week. 2. Follow up with Dr. Brar, Cardiology in 1-2 weeks. INPATIENT COGNOS REPORT DEVELOPER: Cardiology, Dr. Land. The patient was seen and examined on the day of discharge. Denies any new complaints. Shortness of breath has resolved. She denies any chest pain or palpitations. ALLERGIES: Patient is allergic to LISINOPRIL. DISCHARGE MEDICATIONS: Carvedilol 12.5 mg b.i.d., Celexa 20 mg daily, Lasix 40 mg daily, Sunol as ne eded, losartan 100 mg daily, sublingual nitroglycerin as needed, ranitidine 75 mg daily, tramadol as needed, potassium chloride 10 mEq daily for next 10 days, and 325 mg of aspirin. Repeat labs after 1 week recommended. Primary care physician advised to follow. BRIEF HOSPITAL COURSE: Patient is a 71-year-old female with ischemic cardiomyopathy and chronic syst olic heart failure, ejection fraction 20%-25% range, presented to the hospital with worsening shortne ss of breath. Please refer to the history and physical dated 08/04/2017 for further details. The patient was admitted to the telemetry unit with diagnosis of congestive heart failure exacerbatio n. Her BNP on admission was 1262 with troponin of 6.4. She showed good improvement with diuretics. Weight on the day of discharge is 234 pounds from 248 pounds on admission. She is currently on room air. She was extensively counseled on congestive heart failure including fluid restriction and abril y weights. The patient was also evaluated by Cardiology due to non-ST elevation myocardial infarctio n. She will continue to take 325 mg aspirin on daily basis. She has been cleared by Cardiology for discharge. FINAL DIAGNOSES: 1. Acute on chronic systolic heart failure exacerbation, improved. 2. Non-ST elevation myocardial infarction, medically managed. 3. Ischemic cardiomyopathy with ejection fraction 20-25%. 4. Hypokalemia, replaced. Her potassium on admission was 2.9, at discharge was 3.9 5. Obstructive sleep apnea, not tolerating continuous positive airway pressure. 6. Morbid obesity with body mass index 42.6. 7. Chronic kidney disease stage 2. 8. Elevated D-dimer with negative CT angiogram of the chest. 9. Hypertensive urgency on admission, resolved. 10. Hyperlipidemia. 11. Anxiety. 12. Premature ventricular complexes. 13. Coronary artery bypass grafting in 2010. Plan of care was discussed with the patient in detail. She stated understanding. Total time coordinating the discharge of this patient was 38 minutes.
[2017-08-08 13:20] VITALS: BP 183/93; TEMP 98.2
[2017-08-09] MEDS ORDERED: Furosemide 40 MG TAB PO SCH (09:00)
--- NOTE | 2017-08-13 19:30 | EKG ---
Test Reason : STAT Blood Pressure : / mmHG Vent. Rate : 103 BPM Atrial Rate : 103 BPM P-R Int : 132 ms QRS Dur : 092 ms QT Int : 366 ms P-R-T Axes : 059 058 071 degrees QTc Int : 479 ms Sinus tachycardia Nonspecific ST abnormality Abnormal ECG When compared with ECG of 15-NOV-2016 02:49, Premature ventricular complexes are no longer Present Nonspecific T wave abnormality no longer evident in Anterolateral leads QT has shortened Confirmed by MARLA BOWDEN (2) on 08/13/2017 7:30:14 PM Referred By: HAMILTON Confirmed By:MARLA BOWDEN
== END 2017-08-08 15:00 | disposition home or self-care (01) | DRG 280 ==
LOC: ERS 12:07 → ERHOLD 15:54 → 2NO 22:03
PROVIDERS: ADMIT Internal Medicine; ATTEND Internal Medicine
DX: I13.0 Hypertensive heart and chronic kidney disease with heart failure and stage 1 through stage 4 chronic kidney disease, or unspecified chronic kidney disease (principal); I21.4 Non-ST elevation (NSTEMI) myocardial infarction; I50.23 Acute on chronic systolic (congestive) heart failure; Z68.41 Body mass index [BMI] 40.0-44.9, adult; I25.5 Ischemic cardiomyopathy; E87.6 Hypokalemia; G47.33 Obstructive sleep apnea (adult) (pediatric); E66.01 Morbid (severe) obesity due to excess calories; I16.0 Hypertensive urgency; E78.5 Hyperlipidemia, unspecified; F41.9 Anxiety disorder, unspecified; I49.3 Ventricular premature depolarization; I25.10 Atherosclerotic heart disease of native coronary artery without angina pectoris; N18.2 Chronic kidney disease, stage 2 (mild); Z95.810 Presence of automatic (implantable) cardiac defibrillator
CPT/HCPCS: 36415; 36416; 71045; 71275; 80053; 81001; 82553; 83605; 83735; 83880; 84100; 84484; 85025; 85379; 87040; 93005; 93010; 93306; 93798; 94640; 94760; 96372; 96374; 96375; A4216; J1650; J1940; J2060; J2270; J7620

== ENCOUNTER 2017-08-14 08:47 | Emergency (ER) | payer MEDICARE ==
[2017-08-14] MEDS ORDERED: Furosemide 40 MG/4 ML VIAL ONE (09:35)
[2017-08-14] MEDS ORDERED: Nitroglycerin 2% Ointment 1 INCH/1 GM Packet ONE (09:35)
--- NOTE | 2017-08-14 09:38 | RAD ---
SINGLE VIEW OF CHEST: Date: 08/14/17 COMPARISON: 08/04/17. HISTORY: Shortness of breath and dyspnea. FINDINGS: Single view of the chest shows an enlarged but stable cardiomediastinal silhouette. The pacemaker is unchanged in position. The patient is status post sternotomy. There is no evidence of consolidation, mass, or pleural effusion. IMPRESSION: Cardiomegaly without evidence of acute cardiopulmonary disease. POS: [facility]
[2017-08-14 09:45] LABS: #Basophils 0.1 thou/uL (0.0-0.2); #Eosinphils 0.1 thou/uL (0.0-0.7); #Lymphocytes 1.6 thou/uL (1.20-3.40); #Monocytes 0.4 thou/uL (0.11-0.59); #Neutrophils 6.2 thou/uL (1.40-6.50); %Basophils 0.7 % (0.0-1.0); %Eosinophils 1.5 % (0.0-10.0); %Lymphocytes 19.3 % (21.0-51.0); %Monocytes 4.5 % (0.0-10.0); %Neutrophils 74.1 % (42.0-75.0); Hemoglobin 12.9 g/dL (12.0-16.0); Mean Corpuscular HGB CONC 32.3 g/dL (32.0-36.0); Mean Corpuscular Hemoglobin 27.5 pg (27.0-31.0); Mean Corpuscular Volume 85.3 fl (81.0-99.0); Mean Platelet Volume 7.8 fL (7.4-10.4); Platelet Count 317 thou/uL (130-400); RBC Distribution Width 15.6 % (11.5-14.5); Red Blood Cell (RBC) Count 4.67 mill/uL (4.20-5.40); White Blood Cell (WBC) Count 8.3 thou/uL (4.8-10.8)
[2017-08-14 10:01] LABS: ALT (SGPT) 18 U/L (8-55); AST (SGOT) 16 U/L (5-34); Albumin 3.4 g/dL (3.4-4.8); Alkaline Phosphatase 116 U/L (40-150); Anion Gap 13 mmol/L (10-20); BUN (Urea Nitrogen) 18 mg/dL (9.8-20.1); Bilirubin, Total 0.7 mg/dL (0.2-1.2); CK (CPK) 33 U/L (29-168); Calc. Creatinine Clearance 0 mL/min (70-130); Calcium 9.2 mg/dL (7.8-10.44); Carbon Dioxide 20 mmol/L (23-31); Chloride 110 mmol/L (98-107); Estimated GFR-MDRD 71; Globulin 3.5 g/dL (2.4-3.5); Glucose 103 mg/dL (83-110); Potassium 4.1 mmol/L (3.5-5.1); Protein, Total 6.9 g/dL (6.0-8.3); Sodium 139 mmol/L (136-145)
[2017-08-14 10:05] LABS: CKMB 1.6 ng/mL (0-6.6); Troponin I 0.174 ng/mL (< 0.028)
== END 2017-08-14 11:15 | disposition home or self-care (01) ==
LOC: ERS 08:47
DX: I11.0 Hypertensive heart disease with heart failure (principal); I50.9 Heart failure, unspecified; I25.10 Atherosclerotic heart disease of native coronary artery without angina pectoris; F41.9 Anxiety disorder, unspecified
CPT/HCPCS: 36415; 71045; 80053; 82550; 82553; 83880; 84484; 85025; 93005; 96374; J1940

== ENCOUNTER 2017-08-24 00:50 | Inpatient (IN) | payer MEDICARE ==
[2017-08-24 01:25] LABS: #Eosinphils 0.2 thou/uL (0.0-0.7); #Lymphocytes 1.1 thou/uL (1.20-3.40); #Monocytes 0.5 thou/uL (0.11-0.59); #Neutrophils 6.8 thou/uL (1.40-6.50); %Basophils 0.4 % (0.0-1.0); %Eosinophils 1.9 % (0.0-10.0); %Lymphocytes 12.4 % (21.0-51.0); %Monocytes 6.1 % (0.0-10.0); %Neutrophils 79.1 % (42.0-75.0); Hemoglobin 11.9 g/dL (12.0-16.0); Mean Corpuscular HGB CONC 31.4 g/dL (32.0-36.0); Mean Platelet Volume 8.3 fL (7.4-10.4); Platelet Count 216 thou/uL (130-400); Red Blood Cell (RBC) Count 4.41 mill/uL (4.20-5.40); White Blood Cell (WBC) Count 8.6 thou/uL (4.8-10.8)
[2017-08-24] MEDS ORDERED: Amiodarone In Dextrose 200 ML IVPB SCH (01:30)
[2017-08-24] MEDS ORDERED: Amiodarone HCl 150 MG, Admixture Fee 1 EACH in Dextrose 5% in Water 100 ML IVPB SCH ×3 (01:30)
[2017-08-24 01:33] LABS: INR-International Normal Ratio 1.2
[2017-08-24 01:34] LABS: D-Dimer Test 3.43 *mcg/mL (0.27-0.43)
[2017-08-24 01:39] LABS: ALT (SGPT) 16 U/L (8-55); AST (SGOT) 16 U/L (5-34); Albumin 3.3 g/dL (3.4-4.8); Alkaline Phosphatase 103 U/L (40-150); Anion Gap 13 mmol/L (10-20); BUN (Urea Nitrogen) 17 mg/dL (9.8-20.1); Bilirubin, Total 0.7 mg/dL (0.2-1.2); CK (CPK) 71 U/L (29-168); Calc. Creatinine Clearance 0 mL/min (70-130); Calcium 8.8 mg/dL (7.8-10.44); Carbon Dioxide 25 mmol/L (23-31); Chloride 106 mmol/L (98-107); Estimated GFR-MDRD 69; Globulin 3.3 g/dL (2.4-3.5); Glucose 123 mg/dL (83-110); Lipase 34 U/L (8-78); Potassium 3.5 mmol/L (3.5-5.1); Protein, Total 6.6 g/dL (6.0-8.3); Sodium 140 mmol/L (136-145)
[2017-08-24 01:43] LABS: CKMB 1.2 ng/mL (0-6.6); Troponin I 0.073 ng/mL (< 0.028)
[2017-08-24] MEDS ORDERED: Furosemide 40 MG/4 ML VIAL ONE (02:00)
[2017-08-24] MEDS ORDERED: traMADol HCl 50 MG TAB PO PRN ×2 (04:23→04:43)
[2017-08-24] MEDS ORDERED: Mag-Al 1200 mg/1200 mg/30 ML UDCUP PO PRN (04:43)
[2017-08-24] MEDS ORDERED: hydrALAZINE 20 MG/ML VIAL SLOW IVP PRN (04:43)
[2017-08-24] MEDS ORDERED: Nitroglycerin 0.4 MG TAB (25 Tab Bottle) SL PRN (04:43)
[2017-08-24] MEDS ORDERED: Senokot 8.6 MG TAB PO PRN (04:43)
[2017-08-24] MEDS ORDERED: Bisacodyl 5 MG TAB PO PRN (04:43)
[2017-08-24] MEDS ORDERED: Loratadine 10 MG TAB PO PRN (04:43)
[2017-08-24] MEDS ORDERED: Lorazepam 1 MG TAB PO PRN (04:43)
[2017-08-24] MEDS ORDERED: Calcium Carbonate 500 MG ChewTAB PO PRN (04:43)
[2017-08-24] MEDS ORDERED: Ondansetron HCl/PF 4 MG/2 ML Vial IVP PRN (04:43)
[2017-08-24] MEDS ORDERED: Acetaminophen 325 MG TAB PO PRN (04:43)
[2017-08-24 05:06] LABS: Troponin I 0.077 ng/mL (< 0.028)
--- NOTE | 2017-08-24 05:41 | HP ---
PRIMARY CARE PHYSICIAN: Taniya Epps CHIEF COMPLAINT: Worsening shortness of breath. HISTORY OF PRESENT ILLNESS: Ms. Fleming is a 72-year-old female with past medical history of chronic s ystolic congestive heart failure and ischemic cardiomyopathy who presented to the emergency room with the above-mentioned complaint from home. History is mainly obtained by the patient herself and electronic medical records have been reviewed. The patient was recently admitted earlier this month to our facility from 08/05/2017-08/08/2017 at [facility] time she was admitted and treated for acute on chronic systolic congestive heart failure. She w as seen by Cardiology, Dr. Land at that time. She was treated with diuretics and was discharged on oral diuretics. The patient reports that she has been compliant with her medication. She felt a little bit better, b ut not a whole lot since her discharge. She has been having malaise, poor appetite. She is not able to monitor her salt intake much and her is cooking for her. She is compliant with her medic ations. She reported that she has been having increasing shortness of breath for the last day or so and had t o call EMS. According to the ER physician, the EMS people recorded some sort of supraventricular tac hycardia for which she received lidocaine. There are no EKG strips available of this event. The pat ient denies any palpitation or chest pain. A 12-lead EKG done in the emergency room was unremarkable . Nevertheless, the patient was started on amiodarone drip and her heart rate has been in the 50s an d 60s. Further workup in the emergency room revealed worsening of her BNP. Last admission, her BNP was 1200 and today her BNP is over 1600. Her cardiac enzymes were elevated the last visit as high as 7.102. They are still trending down and today her troponin is 0.073. Otherwise, the patient denies any recent illnesses. She has a mild cough, but no fevers, chills or b odyaches. She cannot really tell if she has noticed excessive swelling of her feet or not. The ches t x-ray done in the ER showed mild pulmonary vascular congestion and she is now being admitted for ac poppy and chronic systolic congestive heart failure. PAST MEDICAL HISTORY: 1. Ischemic cardiomyopathy with ejection fraction of 20-25%. The patient has a pacemaker, but not a defibrillator. She has refused that in the past. 2. Coronary artery disease, status post coronary artery bypass graft. 3. Morbid obesity with a BMI of 42.6 4. History of obstructive sleep apnea with intolerance to CPAP. 5. Hypertension. 6. Dyslipidemia. 7. Anxiety. PAST SURGICAL HISTORY: 1. CABG. 2. Left mastectomy. 3. Hysterectomy. 4. Cholecystectomy. 5. Appendectomy. 6. Right knee surgery. 7. Pacemaker placement. ALLERGIES: LISINOPRIL. FAMILY HISTORY: Significant family history for heart disease in several family members. SOCIAL HISTORY: She lives at home with family. No history of drug, tobacco or alcohol abuse. CODE STATUS: Full code. Discussed with the patient. HOME MEDICATIONS: She was discharged on the following medication on 08/08/2017. She denies any rea ges in the medications as follows: Carvedilol 12.5 mg p.o. b.i.d., Celexa 20 mg daily, Lasix 40 mg d aily, [place] as needed, losartan 100 mg daily, sublingual nitroglycerin as needed, ranitidine 75 mg da ellie, tramadol as needed, potassium chloride 10 mEq daily, and 325 mg of aspirin. REVIEW OF SYSTEMS: The following complete review of systems was negative, unless otherwise mentioned in the HPI or below: Constitutional: Weight loss or gain, ability to conduct usual activities. Skin: Rash, itching. Eyes: Double vision, pain. ENT/Mouth: Nose bleeding, neck stiffness, pain, tenderness. Cardiovascular: Palpitations, dyspnea on exertion, orthopnea. Respiratory: Shortness of breath, wheezing, cough, hemoptysis, fever or night sweats. Gastrointestinal: Poor appetite, abdominal pain, heartburn, nausea, vomiting, constipation, or diarrhea. Genitourinary: Urgency, frequency, dysuria, nocturia. Musculoskeletal: Pain, swelling. Neurologic/Psychiatric: Anxiety, depression. Allergy/Immunologic: Skin rash, bleeding tendency. LABORATORY DATA: CBC is unremarkable. Hemoglobin is 11.9. Neutrophils 79%. D-dimer elevated at 3. 43. CT angio has been ordered, but it is pending at this time. Serum chemistries show glucose of 123, troponin 0.073 with CK-MB 1.2. BNP of 1664, otherwise unremar kable. Chest x-ray by my review has evidence of mild pulmonary vascular congestion. EKG by the ER physician 's report showed normal sinus rhythm. The patient has been having some PVCs and brief amount of 13 b eat run of V-tach per the EMS, which the strips are not available. PHYSICAL EXAMINATION: VITAL SIGNS: Upon presentation, blood pressure 144/85, respirations 20, pulse 95, saturating 95% on room air. GENERAL: No acute distress, awake, alert, oriented x3. HEENT: Mucous membrane is moist and pink. No oropharyngeal exudate or erythema. Head is normocepha lic, atraumatic. Pupils equal, reactive to light and accommodation. Extraocular movements intact. NECK: Supple without any lymphadenopathy, JVD or bruit. CHEST: She had decreased breath sounds at bases with few bibasilar crackles as well. No wheezes. R ate and rhythm is regular without any murmur, rubs or gallops. ABDOMEN: Obese, soft, nontender, nondistended with positive bowel sounds. EXTREMITIES: Show trace pitting edema bilaterally. PSYCHIATRIC: Normal affect. SKIN: Free of any rashes or bruises. Feels warm and dry to touch. IMPRESSION AND PLAN: 1. Acute respiratory failure secondary to acute congestive heart failure, systolic in nature. The p atient most likely is having worsening symptoms due to worsening cardiomyopathy along with dietary in discretion. She will be admitted to the telemetry unit with heart failure protocol once again. She will continue on diuresis with IV Lasix twice a day and we will monitor strict I's and O's. We will put her on strict fluid restriction while in the hospital. We will reconsult Dr. Land. I have dis cussed AICD with her and she seems to be more open to the thought at this time. Her EF has worsened from 20-25% in the past, to 10-15% as per the echo done earlier this month. She also has severe mitr al regurgitation and pulmonary arterial hypertension given obstructive sleep apnea. Her long-term pr ognosis remains poor. 2. Supraventricular tachycardia, most likely premature ventricular contractions in the setting of is chemic cardiomyopathy. The patient has resolution of her arrhythmia at this time. We will discontin ue the amiodarone drip as started by the emergency room physician. She will be monitored on telemetr y unit and continued on her beta blockers for now. She remains high risk for sudden cardiac if she continues to refuse the AICD. 3. Ischemic cardiomyopathy. 4. Sleep apnea, not tolerating CPAP. I discussed this once again with the patient. The patient is thinking about using the CPAP in the long run. 5. Morbid obesity. 6. Chronic kidney disease. 7. Elevated D-dimer. CT angio results are pending at this time. 8. History of hypertension, currently well controlled. We will restart her losartan and carvedilol. 9. History of coronary artery disease. We will restart her aspirin, beta yoselin, and ARB. Cardiol francisca has been consulted. 10. Code status: Full code. Discussed with the patient. DISPOSITION: Ms. Fleming is being admitted for acute on chronic systolic congestive heart failure exac erbation. She is a readmission. She remains high risks for readmission given severe cardiomyopathy and sleep apnea with CPAP intolerance. Estimated length of stay at this time is 2-3 midnights. We will consult [facility] Rehab [facility].
[2017-08-24 07:24] LABS: Troponin I 0.064 ng/mL (< 0.028)
[2017-08-24] MEDS ORDERED: Lorazepam 1 MG TAB ONE ×2 (07:54→13:27)
[2017-08-24] MEDS ORDERED: Furosemide 40 MG TAB ONE ×2 (07:55→13:27)
[2017-08-24] MEDS ORDERED: Potassium Chloride 20 MEQ/100 ML PREMIX BAG ONE (07:55)
[2017-08-24] MEDS ORDERED: Enoxaparin Sodium 40 MG/0.4 ML SYRINGE ONE (07:55)
[2017-08-24] MEDS ORDERED: Famotidine 20 MG TAB ONE (07:55)
[2017-08-24] MEDS ORDERED: Potassium Chloride 20 MEQ TAB ONE (07:56)
--- NOTE | 2017-08-24 08:05 | RAD ---
SINGLE VIEW CHEST: Date: 08/24/17 COMPARISON: 08/14/17. HISTORY: Shortness of breath and dyspnea. FINDINGS: Single view of the chest shows an enlarged but stable cardiomediastinal silhouette. The patient is st atus post sternotomy. The pacemaker is unchanged in position. There is no evidence of consolidation, mass, or pleural effusion. IMPRESSION: Stable cardiomegaly. POS: [facility]
[2017-08-24] MEDS ORDERED: Aspirin 325 MG TAB ONE (08:56)
[2017-08-24] MEDS ORDERED: Aspirin 325 mg Enteric Coated Tablet PO SCH (09:00)
[2017-08-24] MEDS ORDERED: Carvedilol 25 MG TAB PO SCH (09:00)
--- NOTE | 2017-08-24 13:33 | PDOC.EVN ---
Event Note - Event Note Event Note: CC: Dyspnea Sub: Pt was seen early this am C/O Some dyspnea VS; Stable General: awake, alert, oriented CVS: S1 s2 present, irregular, no rubs, no gallop, no murmur RS: Diminished at bases, no wheezing, no rhonchi GI: Distended, soft, nttp, no guarding FLYER BUILDER: Awake, follows commands Labs: Reviewed A/p: Pt is 72 yrs old female 1. Acute on chronic systolic CHF 2. Acute respiratory failure 3. SVT 4. HTN 5. H/O CAD 6. CHRISTOPHER PLAN: Continue current treatment Monitor respiratory status closely case d/w pt & RN
[2017-08-24] MEDS ORDERED: Furosemide 20 MG/2 ML VIAL ONE (16:32)
[2017-08-24 16:40] LABS: CO2 Tension 34.8 mmHg (35.0-45.0); O2 Tension (PaO2) 109.1 mmHg (80.0-100.0); pH, Arterial 7.45 (7.35-7.45)
[2017-08-24 16:41] LABS: Actual Bicarbonate (HCO3a) 23.8 mEq/L (22-26); Analyzer IN Cardio ER; Base Excess (BEa) 0.3 mEq/L (0 (+/-) 2.5); Calcium, Ionized 1.2 mmol/L (1.12-1.30); Hematocrit-ABG 36.3 % (36.0-47.0); Hemoglobin (Hb) 11.3 g/dL (12.0-16.0); Puncture Site RBRACH
[2017-08-24 18:14] VITALS: BMI 41.1
[2017-08-24] MEDS: Amiodarone HCl 450 MG, Admixture Fee 1 EACH in Dextrose 5% in Water 250 ML IVPB SCH ×3 (18:17)
[2017-08-24] MEDS: Atorvastatin Calcium 10 MG TAB PO SCH (18:26)
[2017-08-24] MEDS: Potassium Chloride 20 MEQ TAB PO SCH (18:26)
[2017-08-24] MEDS: Aspirin 325 mg Enteric Coated Tablet PO SCH (18:26)
[2017-08-24] MEDS: Losartan 25 MG TAB PO SCH (18:27)
[2017-08-24] MEDS: Enoxaparin Sodium 40 MG/0.4 ML SYRINGE SC SCH (18:27)
[2017-08-24] MEDS: Famotidine 20 MG TAB PO SCH ×2 (18:27→20:26)
[2017-08-24] MEDS: Furosemide 40 MG TAB PO SCH (18:27)
[2017-08-24] MEDS: Citalopram 20 MG TAB PO SCH (18:27)
[2017-08-24] MEDS ORDERED: Furosemide 20 MG/2 ML VIAL SLOW IVP SCH (18:30)
--- NOTE | 2017-08-24 18:55 | RAD ---
PORTABLE CHEST: Date: 08-24-17 Provided Clinical History: Dyspnea. FINDINGS: Comparison is made with the study performed earlier same date. Cardiac silhouette remains enlarged. L eft subclavian cardiac pacing device is again seen in similar position. Median sternotomy changes are again noted. The left lung base is suboptimally evaluated on the basis of cardiomegaly and patient b katy habitus. The pulmonary vasculature and pulmonary interstitium appears prominent which may reflect changes of congestive failure. No definite focal consolidation, pleural fluid or pneumothorax appare nt. IMPRESSION: Cardiomegaly and findings suggesting congestive failure. Follow up is recommended. POS: [facility]
[2017-08-24] MEDS ORDERED: Potassium Chloride 20 MEQ TAB PO SCH (19:15)
[2017-08-24] MEDS ORDERED: Furosemide 100 MG/10 ML VIAL SLOW IVP SCH (20:00)
[2017-08-24] MEDS: Carvedilol 6.25 MG TAB PO SCH (20:26)
[2017-08-24] MEDS: Benzonatate 100 MG CAP PO PRN (20:33)
--- NOTE | 2017-08-24 20:51 | CON ---
DATE OF CONSULTATION: 08/24/2017 REASON FOR CONSULTATION: Congestive heart failure, recurrent. PRIMARY MARQUETRY WORKER: Dr. Brar. HISTORY OF PRESENT ILLNESS: Ms. Fanny Fleming is a 72-year-old woman with history of severe depressio n of left ventricular function (systolic heart failure). She has had multiple admissions recently wi th recurrent heart failure. She was just here in the hospital very recently in late July and had to come back in early August and then only home at short time before she had to come back again wit h more trouble breathing. She was admitted to the hospital with severe difficulty breathing and foun d to be in pulmonary edema on chest x-ray. Apparently, there is also some tachycardia, but there are no strips of that. There is a question of ? supraventricular tachycardia. She received lidocaine, but I do not see any strips documenting that. The patient received diuretics, feeling better but still is not breathing well. PAST MEDICAL HISTORY: 1. Ischemic cardiomyopathy, ejection fraction below 20%. 2. Previous pacemaker insertion. 3. Coronary artery disease, previous bypass surgery. 4. Morbid obesity, BMI 42.6. 5. Sleep apnea. 6. Dyslipidemia. PAST SURGICAL HISTORY: 1. Bypass surgery. 2. Meniscectomy 3. Hysterectomy. 4. Cholecystectomy. 5. Appendectomy. 6. Pacemaker placement. ALLERGIES: Allergic to LISINOPRIL. FAMILY HISTORY: Positive for heart disease at a young age. SOCIAL HISTORY: Lives at home with family. CODE STATUS: FULL. HOME MEDICATIONS: 1. Carvedilol 12.5 mg twice a day. 2. Celexa. 3. Lasix. 4. Nitroglycerin. 5. Ranitidine. REVIEW OF SYSTEMS: Constitutional: No significant weight gain or loss. Vision: No changes. Hearing: No changes. Pulmonary: Positive for shortness of breath. Cardiac: Positive for shortness of breath, no chest pain. Gastrointestinal: No nausea, vomiting, diarrhea. Skin: No rashes. Neurologic: No unilateral weakness or numbness. Psychiatric: No unusual depression or anxiety. PHYSICAL EXAMINATION: GENERAL: This is a pleasant 72-year-old woman who was having some trouble breathing at rest. VITAL SIGNS: Blood pressure 144/91, pulse 86 and regular. EYES: Sclerae nonicteric. Mouth mucous membranes moist. NECK: Supple. No lymphadenopathy. LUNGS: Diffuse expiratory wheezing. CARDIOVASCULAR: Normal S1, normal S2. There is no murmur, rub or gallop. ABDOMEN: Obese and nontender. No hepatosplenomegaly. EXTREMITIES: Warm and dry. No clubbing or cyanosis. There is mild edema. LABORATORY: The potassium was 3.5, glucose 123. BNP 1664, peak troponin 0.077. Chest x-ray shows c ardiomegaly and pulmonary vascular congestion. ASSESSMENT: 1. Congestive heart failure, systolic, acute on chronic. 2. Coronary artery disease. 3. Previous pacemaker. 4. ? tachycardia. PLAN: 1. Reduce the amiodarone dose. 2. Give an extra dose of intravenous Lasix. 3. Replete potassium. 4. Check magnesium level in the morning, may need magnesium repletion. 5. Dr. Brar will resume care tomorrow.
[2017-08-24] MEDS: Ondansetron HCl/PF 4 MG/2 ML Vial IVP PRN (23:28)
[2017-08-25 04:45] LABS: #Basophils 0.1 thou/uL (0.0-0.2); #Eosinphils 0.1 thou/uL (0.0-0.7); #Lymphocytes 1.9 thou/uL (1.20-3.40); #Monocytes 0.6 thou/uL (0.11-0.59); #Neutrophils 5.2 thou/uL (1.40-6.50); %Basophils 0.8 % (0.0-1.0); %Eosinophils 1.4 % (0.0-10.0); %Lymphocytes 23.8 % (21.0-51.0); %Monocytes 7.1 % (0.0-10.0); Hemoglobin 11.8 g/dL (12.0-16.0); Mean Corpuscular HGB CONC 30.9 g/dL (32.0-36.0); Mean Corpuscular Hemoglobin 26.6 pg (27.0-31.0); Mean Corpuscular Volume 86.2 fl (81.0-99.0); Mean Platelet Volume 8.6 fL (7.4-10.4); Platelet Count 184 thou/uL (130-400); Red Blood Cell (RBC) Count 4.42 mill/uL (4.20-5.40); White Blood Cell (WBC) Count 7.8 thou/uL (4.8-10.8)
[2017-08-25 05:03] LABS: Anion Gap 16 mmol/L (10-20); BUN (Urea Nitrogen) 22 mg/dL (9.8-20.1); Calc. Creatinine Clearance 90 mL/min (70-130); Calcium 8.5 mg/dL (7.8-10.44); Carbon Dioxide 20 mmol/L (23-31); Chloride 107 mmol/L (98-107); Estimated GFR-MDRD 56; Glucose 106 mg/dL (83-110); Potassium 4.3 mmol/L (3.5-5.1); Sodium 139 mmol/L (136-145)
[2017-08-25] MEDS: Losartan 25 MG TAB PO SCH (08:28)
[2017-08-25] MEDS: Citalopram 20 MG TAB PO SCH (08:28)
[2017-08-25] MEDS: Aspirin 325 mg Enteric Coated Tablet PO SCH (08:28)
[2017-08-25] MEDS: Carvedilol 6.25 MG TAB PO SCH ×2 (08:28→20:14)
[2017-08-25] MEDS: Potassium Chloride 20 MEQ TAB PO SCH ×2 (08:28→17:30)
[2017-08-25] MEDS: Famotidine 20 MG TAB PO SCH ×2 (08:28→20:14)
[2017-08-25] MEDS: Atorvastatin Calcium 10 MG TAB PO SCH (08:28)
[2017-08-25] MEDS: Furosemide 40 MG TAB PO SCH ×2 (08:28→12:40)
[2017-08-25] MEDS: Enoxaparin Sodium 40 MG/0.4 ML SYRINGE SC SCH (08:29)
--- NOTE | 2017-08-25 10:01 | PRG ---
DATE OF SERVICE: 08/25/2017 Ms. Fleming states she is breathing somewhat better. She continues to be short of breath. She has los t her IV access. She was placed on IV amiodarone therapy. PHYSICAL EXAMINATION: VITAL SIGNS: Blood pressure 139/85, pulse 67, temperature 97.6. LUNGS: Rhonchi, rales and crackles noted bilaterally. CARDIAC: Regular rate and rhythm. ABDOMEN: Soft, nontender, nondistended. EXTREMITIES: 1+ pitting edema. PERTINENT LABORATORY DATA: Hemoglobin 11.8, creatinine 0.87. Peak troponin 0.064. BNP of 1664. IMPRESSION: 1. Acute on chronic systolic heart failure. 2. Coronary artery disease. 3. Status post bypass surgery. RECOMMENDATIONS: 1. Decrease aspirin to 81 q.a.m. 2. Continue atorvastatin and discontinue carvedilol. 3. Change Lasix to 80 mg b.i.d. 4. Neb treatments. 5. Consult with EP to assess for ICD placement.
--- NOTE | 2017-08-25 12:04 | CON ---
DATE OF CONSULTATION: 08/25/2017 SERVICE: Pulmonary Medicine. REASON FOR CONSULTATION: [facility] patient. HISTORY OF PRESENT ILLNESS: Patient is a 72-year-old white female with past medical history signific ant for congestive heart failure. She has got a systolic ejection fraction of 20%. She was in her [facility] state of health until she started having increasing difficulty breathing and weight gain. She p resented to the Emergency Department and was discovered to be having acute on chronic systolic heart failure. She got a couple doses of Lasix over the past day and a half and she feels much improved at this time. She denies any current fevers or chills. She is coughing, but not bringing up any color ful sputum. She otherwise is returning to her usual state of health and feels that she is doing bett er. Cardiology has been following her. They have her on an amiodarone drip currently. She has had no ectopy on her campus monitor for the past 24 hours. PAST MEDICAL HISTORY: 1. Chronic systolic heart failure with 20% ejection fraction. 2. Coronary artery disease. 3. Morbid obesity. 4. Obstructive sleep apnea, cannot tolerate CPAP. 5. Hypertension. 6. Dyslipidemia. 7. Anxiety disorder. PAST SURGICAL HISTORY: 1. Coronary artery bypass graft. 2. Mastectomy. 3. Hysterectomy. 4. Cholecystectomy. 5. Appendectomy. 6. Right knee surgery. 7. Pacemaker placement. ALLERGIES: LISINOPRIL. HOME MEDICATIONS: List of her inpatient medications were reviewed. I have added some nebulized medi cations to be used on an as needed basis. FAMILY HISTORY: Noncontributory. SOCIAL HISTORY: Negative for alcohol, tobacco, or illicit drug use. She denies any exposure to chem icals, dust, asbestos, or tuberculosis. REVIEW OF SYSTEMS: General, head, ears, eyes, nose, throat, cardiovascular, respiratory, GI, , mus culoskeletal, neurologic, and skin is negative except as mentioned in the HPI. PHYSICAL EXAMINATION: VITAL SIGNS: Afebrile, pulse 67, blood pressure 139/85, respirations 24, saturation 94% on 2 liters nasal cannula. GENERAL: The patient is awake, alert, in no apparent distress. LUNGS: Decent air entry. There is no prolonged expiratory phase, though I do hear a little bit of w heezing. Crackles predominate however. Rhonchi are present, but clear with cough. HEART: Normal rate, regular. ABDOMEN: Soft, nontender, nondistended. Bowel sounds are positive. MUSCULOSKELETAL: No cyanosis or clubbing. She has 1-2+ pitting in the bilateral lower extremities. GENITOURINARY: Conklin catheter in place. NEUROLOGIC: Grossly nonfocal. LABORATORY DATA: WBC 7.8, hemoglobin 11.8, platelets 184,000. INR 1.2. PH 7.45, pCO2 of 35, pO2 of 109 on 32% FiO2 via nasal cannula at that time. Basic metabolic profile is otherwise unremarkable. Cardiac enzymes are down trending to 0.064. BNP is elevated at 1600. Liver function studies were p reviously unremarkable. ASSESSMENT: 1. Acute hypoxic respiratory failure. 2. Acute on chronic systolic heart failure. 3. History of obstructive sleep apnea, not able to tolerate CPAP therapy. DISCUSSION AND PLAN: The patient is doing really well from a respiratory standpoint. We will contin ue to wean oxygen as tolerated. Supportive care will be continued. We will diurese her until she re turns to euvolemia. At this point, she can safely transition out of the ICU and go to the telemetry unit. P.r.n. nebulized medications will be provided, and since we have been diuresing her, I will ch caroline her magnesium with tomorrow morning's laboratories. Pulmonary Critical Care will continue to fol low for the time being. Dr. Kelly will assume care in the morning.
--- NOTE | 2017-08-25 15:49 | PDOC.PN ---
- Subjective Encounter Start Date: 08/25/17 Encounter Start Time: 12:30 Patient is seen today, lethargic, Doesnot want to talk at this time. She denies any chest pain now. - Objective MAR Reviewed: Yes Vital Signs & Weight: Vital Signs (12 hours) Temp Pulse Resp BP BP Pulse Ox 08/25/17 15:10 98.6 F 86 20 108/69 95 08/25/17 11:15 98.3 F 65 20 90/62 92 L 08/25/17 08:28 138/95 H 08/25/17 08:00 97.6 F 67 24 H 139/85 94 L 08/25/17 04:43 98.4 F 65 20 110/70 99 Weight Weight 239 lb 14.4 oz I&O: 08/24/17 08/25/17 08/26/17 06:59 06:59 06:59 Intake Total 470 Output Total 1850 Balance -1380 Result Diagrams: 08/25/17 04:27 08/25/17 04:27 Radiology Reviewed by me: Yes Phys Exam - Physical Examination HEENT: PERRLA, moist MMs Neck: no nodes, no JVD Respiratory: no rales, wheezing present Cardiovascular: RRR, no significant murmur Gastrointestinal: soft, non-tender Musculoskeletal: edema present Neurological: non-focal, normal sensation Lymphatic: no nodes Psychiatric: normal affect, A&O x 3 Skin: no rash, normal turgor Dx/Plan (1) Acute CHF (congestive heart failure) Code(s): I50.9 - HEART FAILURE, UNSPECIFIED Status: Acute Comment: Patient Seen by Cardiology Sugested AICD evaalution. COntinue with IV lasix increased Dose to 80mg IV BID. (2) Morbid obesity with BMI of 40.0-44.9, adult Code(s): E66.01 - MORBID (SEVERE) OBESITY DUE TO EXCESS CALORIES; Z68.41 - BODY MASS INDEX (BMI) 40.0-44.9, ADULT Status: Acute Comment: Encourgae pt to Exercise after Cardiac Rehab. (3) CHRISTOPHER (obstructive sleep apnea) Code(s): G47.33 - OBSTRUCTIVE SLEEP APNEA (ADULT) (PEDIATRIC) Status: Acute Comment: Will bree Monitor pt in ICU with Sleep apnea. CPAP at night, (4) CAD (coronary artery disease) Code(s): I25.10 - ATHSCL HEART DISEASE OF [place] CORONARY ARTERY W/O ANG PCTRS Status: Chronic Qualifiers: Comment: COntinue with Aspirin, Hold BB per cardilogy (5) HLD (hyperlipidemia) Code(s): E78.5 - HYPERLIPIDEMIA, UNSPECIFIED Status: Chronic Qualifiers: Comment: Continue Home Meds. (6) HTN (hypertension), benign Code(s): I10 - ESSENTIAL (PRIMARY) HYPERTENSION Status: Chronic Comment: St[place], Will continue to Monitor Keep sytolic >100 and hold Meds if needed. (7) Acute respiratory failure with hypoxia Code(s): J96.01 - ACUTE RESPIRATORY FAILURE WITH HYPOXIA Status: Resolved Comment: likely from CHF, will closley Monitor continue diuresis. - Plan cont current plan of care, PT/OT, oncology social work, respiratory therapy, incentive spirometry, DVT proph w/lovenox * . - Discharge Day Encounter end time: 13:00 Review of Systems - Review of Systems Constitutional: weakness, malaise Respiratory: Shortness of Breath, SOB with Excertion, Wheezing Cardiovascular: negative: chest pain, palpitations, orthopnea, paroxysmal nocturnal dyspnea, edema, light headedness, other Gastrointestinal: negative: Nausea, Vomiting, Abdominal Pain, Diarrhea, Constipation, Melena, Hematochezia, Other Musculoskeletal: negative: Neck Pain, Shoulder Pain, Arm Pain, Back Pain, Hand Pain, Leg Pain, Foot Pain, Other Skin: negative: Rash, Lesions, Davis, Bruising, Other - Medications/Allergies Allergies/Adverse Reactions: Allergies Allergy/AdvReac Type Severity Reaction Status Date / Time lisinopril Allergy Verified 07/24/16 02:02 Medications: Current Medications Acetaminophen (Tylenol) 650 mg PO Q4H PRN PRN Reason: Headache/Fever or Pain Al Hydroxide/Mg Hydroxide (Maalox) 30 ml PO Q6H PRN PRN Reason: Heartburn or Indigestion Albuterol/Ipratropium (Duoneb) 3 ml NEB [id number] PRN PRN Reason: SOB &/or Wheezing Aspirin (Ecotrin) 325 mg PO DAILY [facility] Last Admin: 08/25/17 08:28 Dose: 325 mg Atorvastatin Calcium (Lipitor) 10 mg PO DAILY [facility] Last Admin: 08/25/17 08:28 Dose: 10 mg Benzonatate (Tessalon) 100 mg PO Q4H PRN PRN Reason: Cough Last Admin: 08/24/17 20:33 Dose: 100 mg Bisacodyl (Dulcolax) 10 mg PO DAILYPRN PRN PRN Reason: Constipation Calcium Carbonate (Tums) 1,000 mg PO Q4H PRN PRN Reason: Heartburn or Indigestion Carvedilol (Coreg) 6.25 mg PO BID [facility] Last Admin: 08/25/17 08:28 Dose: 6.25 mg Citalopram Hydrobromide (Celexa) 20 mg PO DAILY [facility] Last Admin: 08/25/17 08:28 Dose: 20 mg Clonidine (Catapres) 0.1 mg PO Q4H PRN PRN Reason: Systolic BP > 160 Enoxaparin Sodium (Lovenox) 40 mg SC 0900 [facility] Last Admin: 08/25/17 08:29 Dose: 40 mg Famotidine (Pepcid) 20 mg PO BID [facility] Last Admin: 08/25/17 08:28 Dose: 20 mg Furosemide (Lasix) 80 mg PO 0900,1200 [facility] Last Admin: 08/25/17 12:40 Dose: 80 mg Guaifenesin (Robitussin Sf) 200 mg PO Q4H PRN PRN Reason: Cough Hydralazine HCl (Apresoline) 10 mg SLOW IVP Q4H PRN PRN Reason: Systolic BP > 180 Amiodarone HCl/Dextrose (Nexterone) 200 mls @ 8 mls/hr IVPB INF [facility] PRN Reason: Protocol Amiodarone HCl 450 mg/Miscellaneous Medication 1 each/ Dextrose/Water 259 mls @ 8 mls/hr IVPB INF [facility] PRN Reason: Protocol Last Admin: 08/24/17 18:17 Dose: 259 mls Loratadine (Claritin) 10 mg PO DAILYPRN PRN PRN Reason: Sinus Symptoms Losartan Potassium (Cozaar) 100 mg PO DAILY [facility] Last Admin: 08/25/17 08:28 Dose: 100 mg Nitroglycerin (Nitrostat) 0.4 mg SL Q5MIN PRN PRN Reason: Chest Pain Ondansetron HCl (Zofran) 4 mg IVP Q6H PRN PRN Reason: Nausea/Vomiting Last Admin: 08/24/17 23:28 Dose: 4 mg Potassium Chloride (K-Dur) 20 meq PO BID-[facility] Last Admin: 08/25/17 08:28 Dose: 20 meq Senna (Senokot) 2 tab PO HSPRN PRN PRN Reason: Constipation Tramadol HCl (Ultram) 50 mg PO Q4H PRN PRN Reason: Moderate Pain (4-6)
[2017-08-25] MEDS: Benzonatate 100 MG CAP PO PRN (20:14)
--- NOTE | 2017-08-25 20:17 | CON ---
DATE OF CONSULTATION: 08/25/2017 Olivia Berrios, Nurse Practitioner, dictating a scribe for Dr. Reagan Fontaine. REASON FOR CONSULTATION: Severely depressed LVEF, systolic heart failure. REFERRING PHYSICIAN: Dr. Brar. HISTORY OF PRESENT ILLNESS: Ms. Fleming is a 72-year-old woman with a history of severe and recurrent systolic heart failure. She has severely depressed left ventricular function. Currently estimated at 10% to 15%. Over the recent past , she has had multiple hospitalizations for fluid retention and pulmonary edema , will need brief rest at home before she has required go back to hospital for heart failure symptoms. This admission to hospital was the same story. The patient had worsening shortness of breath and she sought medical attention. Also, I have noted she has been feeling fairly poorly while she was at home with poor appetite and reports that she is mostly compliant with her medications. She has been offered an ICD implantation in the past, which she has refused. Today, she denies any chest pain, palpitations, heart racing, syncope or near syncope. She has not had any chest pain or pressure. She does report that she continues to have shortness of breath, significant dyspnea and swelling of the extremities. PAST MEDICAL HISTORY: 1. Ischemic cardiomyopathy, LVEF 10% to 15%. 2. Sick sinus syndrome with subsequent pacemaker implantation in 2010. 3. Coronary artery disease status post coronary artery bypass grafting. 4. Morbid obesity with BMI of 42.6. 5. History of COPD, intolerant to CPAP. 5. Hypertension. 6. Dyslipidemia. 7. Anxiety. PAST SURGICAL HISTORY: 1. CABG. 2. Left mastectomy. 3. Hysterectomy. 4. Cholecystectomy. 5. Appendectomy. 6. Right knee surgery. 7. Pacemaker placement in 2010. ALLERGIES: Include LISINOPRIL. FAMILY HISTORY: Significant for history of heart disease among several family members. SOCIAL HISTORY: Lives with her . Denies any history of drug, tobacco, or alcohol abuse. HOME MEDICATIONS: Include carvedilol 12.5 mg b.i.d., Celexa 20 mg daily, Lasix 40 mg daily, [place] as needed, losartan 100 mg daily, sublingual nitro as needed , ranitidine 75 mg daily, tramadol as needed, potassium chloride 10 mEq daily, and 325 mg of aspirin daily. REVIEW OF SYSTEMS: As documented in the HPI and below. Constitutional: Denies fevers, chills, recent weight fluctuations. Positive for fatigue and malaise. HEENT: Denies vision changes, speech changes or double vision. Cardiovascular: Heart racing. Positive for palpitations. Respiratory: Positive for shortness of breath, wheezing, cough. Negative for hemoptysis, fever, or night sweats. GI: Negative for nausea, vomiting, diarrhea, or blood in the stool. Musculoskeletal: Positive for chronic back pain, joint pain, and swelling. PHYSICAL EXAMINATION: VITAL SIGNS: Most recent vitals, temperature 98.6, pulse 86, respirations 20, oxygen saturation 95% on supplemental oxygen via nasal cannula, blood pressure is 108/69. GENERAL: This is a pleasant morbidly obese 72-year-old female, who is having shortness of breath at rest, requiring her to semirecumbent to aid with breathing. HEENT: She is normocephalic. Her sclerae are anicteric. Her mucous membranes are moist. NECK: Supple without severe jugular venous distention. There is no thyromegaly or lymphadenopathy. She has adequate dentition. LUNGS: Sounds exhibit diffuse expiratory wheezes. CARDIOVASCULAR: Heart sounds are regularly regular without murmur, rub, or gallop. EXTREMITIES: Warm and dry to touch without clubbing or cyanosis. However, there is +1 bilateral edema to the lower extremities. ABDOMINAL: Exam is benign. Her abdomen is obese, but soft, and nontender. There is no palpable masses. Liver is nonpalpable. Her device is palpable at the left infraclavicular fossa and another side is without swelling, bruising or erosion. CURRENT MEDICATIONS: Amiodarone drip, aspirin 325 mg daily, Lipitor 10 mg daily , Tessalon Perles 100 mg p.o. q.4 hours p.r.n., Coreg 6.25 mg p.o. b.i.d., Celexa 20 mg daily, Lovenox 40 mg subcu daily, Pepcid 20 mg p.o. b.i.d., Lasix 80 mg p.o. at 9 a.m. and 12 scheduled, Cozaar 100 mg p.o. daily, potassium chloride 20 mEq p.o. b.i.d. LABORATORY DATA: Hematology on 08/25/2017, WBC 7.8, hemoglobin 11.8, hematocrit 38.1, platelet count is 184. Coagulation on 08/24/2017, PT is 15, INR is 1.2. Chemistry from 123, sodium is 139, potassium is 4.3, chloride is 107, carbon dioxide is 20, BUN is 22, creatinine is 0.97, calcium is 8.5. Chest x-ray from 08/24/2017, suggests enlarged, but stable cardiac mediastinal silhouette, post-sternotomy. Negative for consolidation, mass, or pleural effusion. No acute findings and stable cardiomegaly. ASSESSMENT: 1. Systolic congestive heart failure, acute on chronic with LVEF of 10% to 15%. 2. Normal sinus rhythm with nonsustained wide complex tachycardia, likely VT. 3. Sick sinus syndrome with dual chamber pacemaker in situ implanted in 2010. 4. Nonsustained wide complex tachy in ER, but only atrial tachycardia on PPM interrogation. 5. Morbid obesity. PLAN: The plan was discussed with the patient and her . Given the patient's severely depressed left ventricular function. Patient continues to be a candidate for ICD upgrade. This has been offered to her in the past where she had refused previously; however, the patient and her are eager any agreeable to having an ICD implanted today. The procedure was described in detail including the risks and the benefits. Risks include infection, damage to the skin, nerves, and blood vessels. Pneumothorax, perforation of cardiac issue, damage to the subclavian vein and surrounding vasculature, and . They verbalized understanding of these risks and wishes to proceed. At this time, the patient remains in symptomatic congestive heart failure and is receiving Lasix for diuresis. Plan for ICD implant once the patient is compensated and stable for anesthesia. We anticipate that this will be , 08/27/2017. For now continue with short term amiodarone for her wide complex tachycardia, might consider stopping it if stable. Thank you for allowing us to participate in the care of this patient. We will follow. EFREN
[2017-08-26] MEDS: Amiodarone HCl 450 MG, Admixture Fee 1 EACH in Dextrose 5% in Water 250 ML IVPB SCH ×3 (03:46)
[2017-08-26 04:57] LABS: Anion Gap 13 mmol/L (10-20); BUN (Urea Nitrogen) 27 mg/dL (9.8-20.1); Calc. Creatinine Clearance 77 mL/min (70-130); Calcium 8.7 mg/dL (7.8-10.44); Carbon Dioxide 26 mmol/L (23-31); Chloride 103 mmol/L (98-107); Estimated GFR-MDRD 47; Glucose 83 mg/dL (83-110); Magnesium 2.1 mg/dL (1.6-2.6); Potassium 4.1 mmol/L (3.5-5.1); Sodium 138 mmol/L (136-145)
[2017-08-26] MEDS: Enoxaparin Sodium 40 MG/0.4 ML SYRINGE SC SCH (08:26)
[2017-08-26] MEDS: Losartan 25 MG TAB PO SCH (08:27)
[2017-08-26] MEDS: Famotidine 20 MG TAB PO SCH ×2 (08:27→22:44)
[2017-08-26] MEDS: Aspirin 325 mg Enteric Coated Tablet PO SCH (08:27)
[2017-08-26] MEDS: Furosemide 40 MG TAB PO SCH ×2 (08:27→11:57)
[2017-08-26] MEDS: Atorvastatin Calcium 10 MG TAB PO SCH (08:27)
[2017-08-26] MEDS: Carvedilol 6.25 MG TAB PO SCH ×2 (08:27→22:44)
[2017-08-26] MEDS: Potassium Chloride 20 MEQ TAB PO SCH ×2 (08:28→17:43)
[2017-08-26] MEDS: Citalopram 20 MG TAB PO SCH (08:28)
--- NOTE | 2017-08-26 08:48 | PRG ---
DATE OF SERVICE: 08/26/2017 SUBJECTIVE: Ms. Fleming states she is breathing better, but continues to have wheezing. No chest pain or pressure noted. PHYSICAL EXAMINATION: VITAL SIGNS: Blood pressure 142/63, pulse 76, temperature 97.6. LUNGS: Rhonchi, rales and wheezing bilaterally. CARDIAC: Regular rate and rhythm. ABDOMEN: Soft, nontender, nondistended. EXTREMITIES: No edema. IMPRESSION: 1. Acute on chronic systolic heart failure. 2. Coronary artery disease. 3. Status post bypass surgery. RECOMMENDATIONS: 1. Neb treatments. 2. Continue IV amiodarone. 3. Decrease aspirin to 81 q.a.m. 4. Continue Lasix 80 mg b.i.d. 5. Continue beta yoselin therapy. 6. ICD in the next 1-2 days.
--- NOTE | 2017-08-26 09:58 | PRG ---
DATE OF SERVICE: 08/26/2017 SUBJECTIVE: Ms. Fleming is still feeling very rough with some wheezing this morning. OBJECTIVE DATA: VITAL SIGNS: Blood pressure 142/60, heart rate 76, respirations 18, temperature 97.6 degrees Fahrenh eit. GENERAL: Alert and oriented woman in no apparent distress. NECK: Supple. Jugular veins not distended. CHEST: Coarse without crackles. CARDIOVASCULAR: Heart sounds are regular rate and rhythm. No murmur or gallop. ABDOMEN: Benign. Bowel sounds positive. EXTREMITIES: Lower extremities without clubbing or cyanosis. Mild bilateral edema is noted. The left precordial pacemaker site is well healed. The ins and outs are -1.4 liters from the and - 0.2 liters from 08/26/2017 fluid balance. LABORATORY DATA: White count 7.8, hemoglobin 9.8, platelet count was 184 yesterday. Electrolytes th is morning with BUN 26, creatinine 1.13. ASSESSMENT AND PLAN: Ms. Fleming is a pleasant 72-year-old woman with a history of congestive heart fa ilure and ischemic cardiomyopathy who presented with a nonsustained ventricular arrhythmias. She has prior history of LVEF 10-15%, has a dual-chamber pacemaker in place. She was admitted with episodic wide complex tachycardia. Interrogation of her pacemaker revealed mos tly atrial driven arrhythmia. For now well suppressed with amiodarone. Her respiratory status still is relatively poor, wheezing. She is not feeling well, although has bee n diuresed some. Her renal function also indicates some prerenal state. We are tentatively planning ICD upgrade tomorrow. For now, I will stop the amiodarone. We will cont inue to monitor arrhythmias. Thank you again for allowing me to participate in the care of your patient.
--- NOTE | 2017-08-26 14:14 | PQF ---
DATE: 08-26-17 ATTN: DR. ALICIA SHANKAR Please exercise your independent, professional judgment in responding to the clarification form. Clinical indicators are provided on the bottom of this form for your review Please check appropriate box(s): [ x] Demand Ischemia [ ] NM ( type 2 ) [ ] Other diagnosis [ ] Unable to determine In addition, please specify: Present on Admission (POA): [ x ] Yes [ ] No [ ] Unable to determine For continuity of documentation, please document condition throughout progress notes and discharge summary. Thank You. CLINICAL INDICATORS - SIGNS / SYMPTOMS/ LABS are present in the medical record: Lab Results: TROPONIN: 08-24-17: 0.073 08-24-17: 0.077 08-24-17: 0.064 RISK FACTORS: H&P: HX OF CAD, CKD, HTN CONSULT NOTE DR. CHRISTIE 08-25-17: NORMAL SR WITH NONSUSTAINED WIDE COMPLEX TACHYCARDIA, LIKELY VT. SICK SINUS SYNDROME WITH DUAL CHAMBER PACEMAKER IN SITU IMPLANTED IN 2010. TREATMENT: SERIES OF LABS (This form is maintained as a part of the permanent medical record) 2014 [employer]. All Rights Reserved [email or web address] Office: [phone] [facility]
--- NOTE | 2017-08-26 14:42 | PQF ---
DATE: 08-26-17 ATTN: DR. ALICIA SHANKAR Please exercise your independent, professional judgment in responding to the clarification form. Clinical indicators are provided on the bottom of this form for your review Please check appropriate box(s): [ ] Acute Renal Failure (ARF) / Acute Kidney Injury (DARRIN) [x ] Acute on Chronic Renal Failure please specify Stage of CKD ____3____ (see below) [ ] CKD without ARF/DARRIN please specify Stage of CKD [ ] Other diagnosis [ ] Unable to determine In addition, please specify: Present on Admission (POA): [ x ] Yes [ ] No [ ] Unable to determine National Kidney Foundation Guidelines for CKD Staging Stage I Kidney damage with normal or increased GFR GFR > 90 Stage II Kidney damage with mildly decreased GFR GFR 60-89 Stage III Kidney damage with moderately decreased GFR GFR 30-59 Stage IV Kidney damage with severely decreased GFR GFR 16-29 Stage V Kidney failure GFR<15 ESRD End Stage Renal Disease On dialysis For continuity of documentation, please document condition throughout progress notes and discharge summary. Thank You. CLINICAL INDICATORS - SIGNS / SYMPTOMS / LABS H&P: CHRONIC KIDNEY DISEASE. GFR: 18: 69, 18: 56, 08-26-16: 47 CREATININE: 08-24-17: 0.82, 08-25-17: 0.97, 08-26-17: 1.13 BUN: 18: 17 1-18: 22 18: 27 RISKS: H&P: CHRONIC KIDNEY DISEASE. H&P: ON HOME LASIX, COREG, ASPIRIN TREATMENTS: ER: NS IVF, K-DUR (This form is maintained as a part of the permanent medical record) 2014 [employer] All Rights Reserved [email or web address] Office: [phone] [facility]
[2017-08-26] MEDS: Diabetic Tussin 200 MG/10 ML UDCUP PO PRN (22:44)
[2017-08-27] MEDS ORDERED: CEFAZOLIN/Water 2 GM/20 ML SYRINGE SLOW IVP SCH (04:15)
[2017-08-27] MEDS ORDERED: Lorazepam 0.5 MG TAB PO PRN (04:31)
[2017-08-27] MEDS: Amiodarone HCl 450 MG, Admixture Fee 1 EACH in Dextrose 5% in Water 250 ML IVPB SCH ×3 (04:59)
[2017-08-27 06:41] LABS: Chloride 100 mmol/L (98-107); Magnesium 2.1 mg/dL (1.6-2.6); Potassium 4.2 mmol/L (3.5-5.1); Sodium 136 mmol/L (136-145)
[2017-08-27 06:42] LABS: Calcium 8.8 mg/dL (7.8-10.44); Glucose 94 mg/dL (83-110)
[2017-08-27 06:44] LABS: Anion Gap 16 mmol/L (10-20); Carbon Dioxide 24 mmol/L (23-31)
[2017-08-27 06:46] LABS: BUN (Urea Nitrogen) 26 mg/dL (9.8-20.1); Calc. Creatinine Clearance 89 mL/min (70-130); Estimated GFR-MDRD 57
[2017-08-27] MEDS: Enoxaparin Sodium 40 MG/0.4 ML SYRINGE SC SCH ×2 (07:58→09:36)
[2017-08-27] MEDS: Atorvastatin Calcium 10 MG TAB PO SCH (08:28)
[2017-08-27] MEDS: Carvedilol 6.25 MG TAB PO SCH (08:28)
[2017-08-27] MEDS: Famotidine 20 MG TAB PO SCH ×2 (08:28→21:28)
[2017-08-27] MEDS: Furosemide 40 MG TAB PO SCH ×2 (08:28→11:17)
[2017-08-27] MEDS: Losartan 25 MG TAB PO SCH (08:28)
[2017-08-27] MEDS: Potassium Chloride 20 MEQ TAB PO SCH ×3 (08:28→17:06)
[2017-08-27] MEDS: Citalopram 20 MG TAB PO SCH (08:28)
[2017-08-27] MEDS: guaiFENesin ER 600 MG TAB PO SCH ×2 (09:35→21:28)
[2017-08-27] MEDS: Nystatin Powder 15 GM BOT TOP SCH ×2 (09:35→22:06)
--- NOTE | 2017-08-27 10:23 | PRG ---
DATE OF SERVICE: 08/27/2017 SUBJECTIVE: Ms. Fleming still seems to be fairly short of breath, wheezing, and coughing. Denies palp itations or loss of consciousness. OBJECTIVE: VITAL SIGNS: Blood pressure is 161/105, respiratory rate 18, temperature 97.9 degrees Fahrenheit. GENERAL: She is alert and oriented woman with elevated BMI, in no apparent distress. NECK: Supple. Jugular veins not distended. CHEST: Wheezy with a few fine crackles in the bases. CARDIOVASCULAR: Heart sounds are regular to rate and rhythm. No murmur or gallop. ABDOMEN: Benign. Bowel sounds positive. EXTREMITIES: Lower extremities without edema, clubbing or cyanosis. DATABASE: Telemetry strips reviewed reveals sinus rhythm, PVCs, no ST-T changes. No sustained ventr icular arrhythmias. LABORATORY DATA: White count 7.8. Electrolytes revealing BUN 26, creatinine 0.96. ASSESSMENT AND PLAN: Ms. Fleming is a 72-year-old woman with history of chronic CHF and ischemic cardi omyopathy. She had reduced LVEF previous refusing ICD, has a dual-chamber pacemaker implantation for sinus node disease since 2010. She has had prior bypass surgery. Wide complex nonsustained ventric ular complex arrhythmias is not suppressed with initial IV amiodarone bolus. She also has some upper respiratory tract symptoms. Initial thought to be due to CHF and she has been diuresed some, but ross s continue negative balance of 6.9 mL today our last 24 hours. She remains symptomatic. She could h ave also superimposed bronchitis. She is not feeling good. I will postpone her implant for today an d considered for tomorrow. Risk and benefits detailed to her again, we will continue to monitor.
--- NOTE | 2017-08-27 11:34 | PDOC.PN ---
- Subjective Encounter Start Date: 08/26/17 Encounter Start Time: 15:15 Patient is seen today, remains in Respiratory ddistress and cough from Congestion from CHF. - Objective MAR Reviewed: Yes Vital Signs & Weight: Vital Signs (12 hours) Temp Pulse Resp BP Pulse Ox 08/27/17 10:47 64 16 08/27/17 07:44 97.9 F 78 18 96 08/27/17 07:43 97.9 F 78 18 161/105 H 96 08/27/17 04:00 70 18 135/67 08/27/17 01:45 74 18 85 L Weight Weight 230 lb I&O: 08/26/17 08/27/17 08/28/17 06:59 06:59 06:59 Intake Total 1156 1325.4 Output Total 1350 1975 Balance -194 -649.6 Result Diagrams: 08/25/17 04:27 08/27/17 06:14 Radiology Reviewed by me: Yes Phys Exam - Physical Examination HEENT: PERRLA, moist MMs Neck: no nodes, no JVD Respiratory: wheezing present (Crackles Both lungs.) Cardiovascular: RRR, no significant murmur Gastrointestinal: soft, non-tender Musculoskeletal: no edema, pulses present Neurological: non-focal, normal sensation Lymphatic: no nodes Psychiatric: normal affect, A&O x 3 Skin: no rash, normal turgor Dx/Plan (1) Acute CHF (congestive heart failure) Code(s): I50.9 - HEART FAILURE, UNSPECIFIED Status: Acute Comment: Patient Seen by Cardiology Sugested AICD evaalution. COntinue with IV lasix increased Dose to 80mg IV BID. (2) Morbid obesity with BMI of 40.0-44.9, adult Code(s): E66.01 - MORBID (SEVERE) OBESITY DUE TO EXCESS CALORIES; Z68.41 - BODY MASS INDEX (BMI) 40.0-44.9, ADULT Status: Acute Comment: Encourgae pt to Exercise after Cardiac Rehab. (3) CHRISTOPHER (obstructive sleep apnea) Code(s): G47.33 - OBSTRUCTIVE SLEEP APNEA (ADULT) (PEDIATRIC) Status: Acute Comment: Will bree Monitor pt in ICU with Sleep apnea. CPAP at night, (4) CAD (coronary artery disease) Code(s): I25.10 - ATHSCL HEART DISEASE OF [place] CORONARY ARTERY W/O ANG PCTRS Status: Chronic Qualifiers: Comment: COntinue with Aspirin, Hold BB per cardilogy (5) HLD (hyperlipidemia) Code(s): E78.5 - HYPERLIPIDEMIA, UNSPECIFIED Status: Chronic Qualifiers: Comment: Continue Home Meds. (6) HTN (hypertension), benign Code(s): I10 - ESSENTIAL (PRIMARY) HYPERTENSION Status: Chronic Comment: Stbale, Will continue to Monitor Keep sytolic >100 and hold Meds if needed. (7) Acute respiratory failure with hypoxia Code(s): J96.01 - ACUTE RESPIRATORY FAILURE WITH HYPOXIA Status: Resolved Comment: likely from CHF, will closley Monitor continue diuresis. - Plan cont current plan of care, PT/OT, respiratory therapy, incentive spirometry, DVT proph w/lovenox * . - Discharge Day Encounter end time: 16:00 Review of Systems - Review of Systems Eyes: negative: Pain, Vision Change, Conjunctivae Inflammation, Eyelid Inflammation, Redness, Other ENT: negative: Ear Pain, Ear Discharge, Nose Pain, Nose Discharge, Nose Congestion, Mouth Pain, Mouth Swelling, Throat Pain, Throat Swelling, Other Respiratory: Cough, Shortness of Breath, SOB with Excertion, Wheezing Cardiovascular: negative: chest pain, palpitations, orthopnea, paroxysmal nocturnal dyspnea, edema, light headedness, other Gastrointestinal: negative: Nausea, Vomiting, Abdominal Pain, Diarrhea, Constipation, Melena, Hematochezia, Other Genitourinary: negative: Dysuria, Frequency, Incontinence, Hematuria, Retention , Other Musculoskeletal: negative: Neck Pain, Shoulder Pain, Arm Pain, Back Pain, Hand Pain, Leg Pain, Foot Pain, Other Skin: negative: Rash, Lesions, Davis, Bruising, Other - Medications/Allergies Allergies/Adverse Reactions: Allergies Allergy/AdvReac Type Severity Reaction Status Date / Time lisinopril Allergy Verified 07/24/16 02:02 Medications: Current Medications Acetaminophen (Tylenol) 650 mg PO Q4H PRN PRN Reason: Headache/Fever or Pain Last Admin: 08/25/17 20:14 Dose: 650 mg Al Hydroxide/Mg Hydroxide (Maalox) 30 ml PO Q6H PRN PRN Reason: Heartburn or Indigestion Albuterol/Ipratropium (Duoneb) 3 ml NEB [id number] PRN PRN Reason: SOB &/or Wheezing Last Admin: 08/27/17 10:47 Dose: 3 ml Aspirin (Aspirin Chewable) 81 mg PO DAILY [facility] Last Admin: 08/27/17 08:28 Dose: 81 mg Atorvastatin Calcium (Lipitor) 10 mg PO DAILY [facility] Last Admin: 08/27/17 08:28 Dose: 10 mg Bisacodyl (Dulcolax) 10 mg PO DAILYPRN PRN PRN Reason: Constipation Calcium Carbonate (Tums) 1,000 mg PO Q4H PRN PRN Reason: Heartburn or Indigestion Carvedilol (Coreg) 6.25 mg PO BID [facility] Last Admin: 08/27/17 08:28 Dose: 6.25 mg Cefazolin Sodium (Ancef) 2 gm SLOW IVP WILLCALL [facility] Stop: 08/27/17 19:00 Citalopram Hydrobromide (Celexa) 20 mg PO DAILY [facility] Last Admin: 08/27/17 08:28 Dose: 20 mg Clonidine (Catapres) 0.1 mg PO Q4H PRN PRN Reason: Systolic BP > 160 Enoxaparin Sodium (Lovenox) 40 mg SC 0900 [facility] Last Admin: 08/27/17 09:36 Dose: 40 mg Famotidine (Pepcid) 20 mg PO BID [facility] Last Admin: 08/27/17 08:28 Dose: 20 mg Furosemide (Lasix) 80 mg PO 0900,1200 [facility] Last Admin: 08/27/17 11:17 Dose: 80 mg Guaifenesin (Robitussin Sf) 200 mg PO Q4H PRN PRN Reason: Cough Last Admin: 08/26/17 22:44 Dose: 200 mg Guaifenesin (Mucinex) 600 mg PO Q12HR [facility] Last Admin: 08/27/17 09:35 Dose: 600 mg Hydralazine HCl (Apresoline) 10 mg SLOW IVP Q4H PRN PRN Reason: Systolic BP > 180 Amiodarone HCl 450 mg/Miscellaneous Medication 1 each/ Dextrose/Water 259 mls @ 8 mls/hr IVPB INF [facility] PRN Reason: Protocol Last Admin: 08/27/17 04:59 Dose: 259 mls Loratadine (Claritin) 10 mg PO DAILYPRN PRN PRN Reason: Sinus Symptoms Lorazepam (Ativan) 0.5 mg PO Q8H PRN PRN Reason: Anxiety Losartan Potassium (Cozaar) 100 mg PO DAILY [facility] Last Admin: 08/27/17 08:28 Dose: 100 mg Nitroglycerin (Nitrostat) 0.4 mg SL Q5MIN PRN PRN Reason: Chest Pain Nystatin (Mycostatin Powder) 0 gm TOP BID [facility] Last Admin: 08/27/17 09:35 Dose: 1 applic Ondansetron HCl (Zofran) 4 mg IVP Q6H PRN PRN Reason: Nausea/Vomiting Last Admin: 08/24/17 23:28 Dose: 4 mg Potassium Chloride (K-Dur) 20 meq PO BID-[facility] Last Admin: 08/27/17 08:36 Dose: Not Given Senna (Senokot) 2 tab PO HSPRN PRN PRN Reason: Constipation Sodium Chloride (Flush - Normal Saline) 10 ml IVF Q12HR [facility] Last Admin: 08/27/17 08:37 Dose: Not Given Sodium Chloride (Flush - Normal Saline) 10 ml IVF PRN PRN PRN Reason: Saline Flush Tramadol HCl (Ultram) 50 mg PO Q4H PRN PRN Reason: Moderate Pain (4-6)
--- NOTE | 2017-08-27 11:39 | PDOC.PN ---
- Subjective Encounter Start Date: 08/27/17 Encounter Start Time: 10:00 Patient is seen today, alert and oriented. She continuos to have SOB, today her procedure was cancelled as she is still not euvolemic and not stbale. - Objective MAR Reviewed: Yes Vital Signs & Weight: Vital Signs (12 hours) Temp Pulse Resp BP Pulse Ox 08/27/17 10:47 64 16 08/27/17 07:44 97.9 F 78 18 96 08/27/17 07:43 97.9 F 78 18 161/105 H 96 08/27/17 04:00 70 18 135/67 08/27/17 01:45 74 18 85 L Weight Weight 230 lb I&O: 08/26/17 08/27/17 08/28/17 06:59 06:59 06:59 Intake Total 1156 1325.4 Output Total 1350 1975 Balance -194 -649.6 Result Diagrams: 08/25/17 04:27 08/27/17 06:14 Radiology Reviewed by me: Yes Phys Exam - Physical Examination HEENT: PERRLA, moist MMs Neck: no nodes, supple (Elevated JVD) Respiratory: wheezing present Cardiovascular: RRR, no significant murmur Gastrointestinal: soft, non-tender Musculoskeletal: edema present Neurological: non-focal, normal sensation Lymphatic: no nodes Psychiatric: normal affect, A&O x 3 Skin: no rash, normal turgor Dx/Plan (1) Acute CHF (congestive heart failure) Code(s): I50.9 - HEART FAILURE, UNSPECIFIED Status: Acute Comment: Patient Seen by Cardiology Sugested AICD , planned to do procedure, once paient is euvolemic and stbale. COntinue with IV lasix increased Dose to 80mg IV BID. stbale with good diuresis. (2) Morbid obesity with BMI of 40.0-44.9, adult Code(s): E66.01 - MORBID (SEVERE) OBESITY DUE TO EXCESS CALORIES; Z68.41 - BODY MASS INDEX (BMI) 40.0-44.9, ADULT Status: Acute Comment: Encourgae pt to Exercise after Cardiac Rehab. (3) CHRISTOPHER (obstructive sleep apnea) Code(s): G47.33 - OBSTRUCTIVE SLEEP APNEA (ADULT) (PEDIATRIC) Status: Acute Comment: Will bree Monitor pt for Sleep apnea. CPAP at night, (4) CAD (coronary artery disease) Code(s): I25.10 - ATHSCL HEART DISEASE OF [place] CORONARY ARTERY W/O ANG PCTRS Status: Chronic Qualifiers: Comment: COntinue with Aspirin, Hold BB per cardilogy (5) HLD (hyperlipidemia) Code(s): E78.5 - HYPERLIPIDEMIA, UNSPECIFIED Status: Chronic Qualifiers: Comment: Continue Home Meds. (6) HTN (hypertension), benign Code(s): I10 - ESSENTIAL (PRIMARY) HYPERTENSION Status: Chronic Comment: Mor, Will continue to Monitor Keep sytolic >100 and hold Meds if needed. (7) Acute respiratory failure with hypoxia Code(s): J96.01 - ACUTE RESPIRATORY FAILURE WITH HYPOXIA Status: Resolved Comment: likely from CHF, will closley Monitor continue diuresis. - Plan cont current plan of care, mcadams catheter, respiratory therapy, incentive spirometry, out of bed/ambulate, DVT proph w/lovenox * . - Discharge Day Encounter end time: 10:35 Review of Systems - Review of Systems Eyes: negative: Pain, Vision Change, Conjunctivae Inflammation, Eyelid Inflammation, Redness, Other ENT: negative: Ear Pain, Ear Discharge, Nose Pain, Nose Discharge, Nose Congestion, Mouth Pain, Mouth Swelling, Throat Pain, Throat Swelling, Other Respiratory: Cough, Shortness of Breath, SOB with Excertion, Wheezing Cardiovascular: negative: chest pain, palpitations, orthopnea, paroxysmal nocturnal dyspnea, edema, light headedness, other Gastrointestinal: negative: Nausea, Vomiting, Abdominal Pain, Diarrhea, Constipation, Melena, Hematochezia, Other Genitourinary: negative: Dysuria, Frequency, Incontinence, Hematuria, Retention , Other Musculoskeletal: negative: Neck Pain, Shoulder Pain, Arm Pain, Back Pain, Hand Pain, Leg Pain, Foot Pain, Other Skin: negative: Rash, Lesions, Davis, Bruising, Other - Medications/Allergies Allergies/Adverse Reactions: Allergies Allergy/AdvReac Type Severity Reaction Status Date / Time lisinopril Allergy Verified 07/24/16 02:02 Medications: Current Medications Acetaminophen (Tylenol) 650 mg PO Q4H PRN PRN Reason: Headache/Fever or Pain Last Admin: 08/25/17 20:14 Dose: 650 mg Al Hydroxide/Mg Hydroxide (Maalox) 30 ml PO Q6H PRN PRN Reason: Heartburn or Indigestion Albuterol/Ipratropium (Duoneb) 3 ml NEB [id number] PRN PRN Reason: SOB &/or Wheezing Last Admin: 08/27/17 10:47 Dose: 3 ml Aspirin (Aspirin Chewable) 81 mg PO DAILY [facility] Last Admin: 08/27/17 08:28 Dose: 81 mg Atorvastatin Calcium (Lipitor) 10 mg PO DAILY [facility] Last Admin: 08/27/17 08:28 Dose: 10 mg Bisacodyl (Dulcolax) 10 mg PO DAILYPRN PRN PRN Reason: Constipation Calcium Carbonate (Tums) 1,000 mg PO Q4H PRN PRN Reason: Heartburn or Indigestion Carvedilol (Coreg) 6.25 mg PO BID [facility] Last Admin: 08/27/17 08:28 Dose: 6.25 mg Cefazolin Sodium (Ancef) 2 gm SLOW IVP WILLCALL [facility] Stop: 08/27/17 19:00 Citalopram Hydrobromide (Celexa) 20 mg PO DAILY [facility] Last Admin: 08/27/17 08:28 Dose: 20 mg Clonidine (Catapres) 0.1 mg PO Q4H PRN PRN Reason: Systolic BP > 160 Enoxaparin Sodium (Lovenox) 40 mg SC 0900 [facility] Last Admin: 08/27/17 09:36 Dose: 40 mg Famotidine (Pepcid) 20 mg PO BID [facility] Last Admin: 08/27/17 08:28 Dose: 20 mg Furosemide (Lasix) 80 mg PO 0900,1200 [facility] Last Admin: 08/27/17 11:17 Dose: 80 mg Guaifenesin (Robitussin Sf) 200 mg PO Q4H PRN PRN Reason: Cough Last Admin: 08/26/17 22:44 Dose: 200 mg Guaifenesin (Mucinex) 600 mg PO Q12HR [facility] Last Admin: 08/27/17 09:35 Dose: 600 mg Hydralazine HCl (Apresoline) 10 mg SLOW IVP Q4H PRN PRN Reason: Systolic BP > 180 Amiodarone HCl 450 mg/Miscellaneous Medication 1 each/ Dextrose/Water 259 mls @ 8 mls/hr IVPB INF [facility] PRN Reason: Protocol Last Admin: 08/27/17 04:59 Dose: 259 mls Loratadine (Claritin) 10 mg PO DAILYPRN PRN PRN Reason: Sinus Symptoms Lorazepam (Ativan) 0.5 mg PO Q8H PRN PRN Reason: Anxiety Losartan Potassium (Cozaar) 100 mg PO DAILY [facility] Last Admin: 08/27/17 08:28 Dose: 100 mg Nitroglycerin (Nitrostat) 0.4 mg SL Q5MIN PRN PRN Reason: Chest Pain Nystatin (Mycostatin Powder) 0 gm TOP BID [facility] Last Admin: 08/27/17 09:35 Dose: 1 applic Ondansetron HCl (Zofran) 4 mg IVP Q6H PRN PRN Reason: Nausea/Vomiting Last Admin: 08/24/17 23:28 Dose: 4 mg Potassium Chloride (K-Dur) 20 meq PO BID-[facility] Last Admin: 08/27/17 08:36 Dose: Not Given Senna (Senokot) 2 tab PO HSPRN PRN PRN Reason: Constipation Sodium Chloride (Flush - Normal Saline) 10 ml IVF Q12HR [facility] Last Admin: 08/27/17 08:37 Dose: Not Given Sodium Chloride (Flush - Normal Saline) 10 ml IVF PRN PRN PRN Reason: Saline Flush Tramadol HCl (Ultram) 50 mg PO Q4H PRN PRN Reason: Moderate Pain (4-6)
[2017-08-27] MEDS ORDERED: Carvedilol 6.25 MG TAB PO SCH (13:45)
[2017-08-27] MEDS ORDERED: Carvedilol 3.125 MG TAB PO SCH (14:00)
--- NOTE | 2017-08-27 17:37 | PRG ---
DATE OF SERVICE: 08/27/2017 SUBJECTIVE: Fanny Fleming apparently has not agreed the past to defibrillator. She has apparently no w agreed to defibrillator. She is still not interested in CPAP. She is tentatively to be scheduled tomorrow. There are no acute issues from a pulmonary standpoint. Sleep apnea really is not an issue that needs to be addressed because she has proven. She is not in terested in wearing CPAP as an outpatient. Please reconsult us if needed.
[2017-08-27] MEDS: Carvedilol 3.125 MG TAB PO SCH (21:28)
[2017-08-28] MEDS: Ondansetron HCl/PF 4 MG/2 ML Vial IVP PRN (06:11)
[2017-08-28] MEDS: Amiodarone HCl 450 MG, Admixture Fee 1 EACH in Dextrose 5% in Water 250 ML IVPB SCH ×3 (06:12)
[2017-08-28 06:27] LABS: Anion Gap 17 mmol/L (10-20); BUN (Urea Nitrogen) 23 mg/dL (9.8-20.1); Calc. Creatinine Clearance 100 mL/min (70-130); Calcium 8.9 mg/dL (7.8-10.44); Carbon Dioxide 24 mmol/L (23-31); Chloride 97 mmol/L (98-107); Estimated GFR-MDRD 67; Glucose 78 mg/dL (83-110); Sodium 134 mmol/L (136-145)
--- NOTE | 2017-08-28 08:01 | PRG ---
DATE OF SERVICE: 08/27/2017 SUBJECTIVE: Lonnie feels better. She continues to wheeze. Crackles had improved. OBJECTIVE: VITAL SIGNS: Blood pressure 118/69, pulse 68, temperature 98.5. Weight is down from 239 down to 230 . LUNGS: Wheezing noted bilaterally. HEART: Regular rate and rhythm. ABDOMEN: Soft, nontender, and nondistended. EXTREMITIES: No edema. LABORATORY DATA: Hemoglobin 11.8, creatinine 0.96. IMPRESSION: 1. Acute on chronic systolic heart failure. 2. Coronary artery disease. 3. Wheezing. RECOMMENDATIONS: Continue IV Lasix. Her creatinine has continued improve. Plan is for ICD in a.m. Pulmonary support for pulmonary and primary team. We will decrease Coreg given wheezing to 3.125 b. i.d..
[2017-08-28] MEDS: Nystatin Powder 15 GM BOT TOP SCH ×2 (10:00→20:53)
[2017-08-28] MEDS: Citalopram 20 MG TAB PO SCH (10:03)
[2017-08-28] MEDS: Carvedilol 3.125 MG TAB PO SCH ×2 (10:03→20:53)
[2017-08-28] MEDS: Famotidine 20 MG TAB PO SCH ×2 (10:03→20:52)
[2017-08-28] MEDS: Atorvastatin Calcium 10 MG TAB PO SCH (10:03)
[2017-08-28] MEDS: Potassium Chloride 20 MEQ TAB PO SCH ×2 (10:06→20:37)
[2017-08-28] MEDS: Enoxaparin Sodium 40 MG/0.4 ML SYRINGE SC SCH (10:06)
[2017-08-28] MEDS: guaiFENesin ER 600 MG TAB PO SCH ×2 (10:06→20:52)
--- NOTE | 2017-08-28 10:09 | PRG ---
DATE OF SERVICE: 05/28/2018 Ms. Fleming is feeling better. Her shortness of breath has improved. She has less wheezing today. Sh portia has continued to diurese. PHYSICAL EXAMINATION: VITAL SIGNS: Blood pressure 161/79, pulse 85, temperature 97.5. LUNGS: Crackles noted bilaterally, although improved. Decreased wheezing. CARDIOVASCULAR: Regular rate and rhythm. ABDOMEN: Soft, nontender, nondistended. EXTREMITIES: No edema. LABORATORY: Creatinine 0.84. IMPRESSION: 1. Acute on chronic systolic heart failure. 2. Upper respiratory infection. 3. Coronary artery disease. 4. Status post bypass surgery. RECOMMENDATIONS: Carvedilol has been decreased due to wheezing yesterday. She appears improved. Co ntinue aspirin in addition to atorvastatin. Change Lasix to p.o. and 1 tab a day from b.i.d. ICD to be placed today.
[2017-08-28] MEDS: Losartan 25 MG TAB PO SCH (10:10)
[2017-08-28] MEDS ORDERED: Iopamidol 370 76% 50 ML VIAL FS ONE (11:50)
--- NOTE | 2017-08-28 14:07 | PDOC.CTH ---
Cardiology Progress Note - Subjective Electrophysiology Progress Note Patient resting in bed. Denies chest pain/pressure, palpitations, or heart racing. No stroke like symptoms. Reports shortness of breath with coughing. Feeling better overall all. Denies fever, chills, or malaise. - Objective Vital Signs Temp Pulse Resp BP Pulse Ox 08/28/17 12:00 65 28 H 118/57 L 08/28/17 08:00 97.5 F L 85 20 161/79 H 85 L 08/28/17 04:00 98.3 F 84 16 173/79 H 92 L Weight 230 lb 08/27/17 08/28/17 08/29/17 06:59 06:59 06:59 Intake Total 1325.4 696 Output Total 1975 2140 Balance -649.6 -1444 - Physical Examination General/Neuro: alert & oriented x3, NAD Neck: carotid US brisk Lungs: unlabored respirations, other: (wheezes) Heart: RRR Abdomen: NT/ND, soft, other: (obese) Extremities: + edema B (improving BLE edema) - Telemetry Telemetry Rhythm: NSR - Labs Result Diagrams: 08/25/17 04:27 08/28/17 05:09 Troponin/CKMB - Assessment/Plan 1. Ischemic cardiomyopathy with severely reduced EF- plan for ICD implantation, risks/benefits discussed with patient & family. Questions answered. Consent to be signed. 2. Non sustained wide complex tachycardia/VT- patient on IV amiodarone gtt, no recurrence 3. Sick Sinus Syndrome with subsequent pacemaker implantation 4. Congestive heart failure- continuing to diurese. Shortness of breath improving 5. Viral respiratory illness- resolving, cough with associated dyspnea. Plan is to proceed with ICD upgrade hence improvement of the respiratory symptoms.
--- NOTE | 2017-08-28 15:38 | PDOC.PN ---
- Subjective Encounter Start Date: 08/28/17 Encounter Start Time: 12:00 Patient is seen today, she continuso to have Cough, no chest pain, no nausea or vomting. No fever. - Objective MAR Reviewed: Yes Vital Signs & Weight: Vital Signs (12 hours) Temp Pulse Resp BP Pulse Ox 08/28/17 14:07 97.5 F L 65 20 129/60 99 08/28/17 12:00 65 28 H 118/57 L 08/28/17 08:00 97.5 F L 85 20 161/79 H 85 L 08/28/17 04:00 98.3 F 84 16 173/79 H 92 L Weight Weight 230 lb I&O: 08/27/17 08/28/17 08/29/17 06:59 06:59 06:59 Intake Total 1325.4 696 Output Total 3945 2140 Balance -649.6 -1444 Result Diagrams: 08/25/17 04:27 08/28/17 05:09 Radiology Reviewed by me: Yes Phys Exam - Physical Examination HEENT: PERRLA, moist MMs Neck: no nodes, no JVD Respiratory: wheezing present Cardiovascular: RRR, no significant murmur Gastrointestinal: soft, non-tender Musculoskeletal: edema present Neurological: non-focal, normal sensation Psychiatric: normal affect, A&O x 3 Dx/Plan (1) Acute CHF (congestive heart failure) Code(s): I50.9 - HEART FAILURE, UNSPECIFIED Status: Acute Comment: Patient Seen by Cardiology Sugested AICD , planned to do procedure soon, once paient is euvolemic and stbale. COntinue with IV lasix increased Dose to 80mg IV BID. stbale with good diuresis. (2) Morbid obesity with BMI of 40.0-44.9, adult Code(s): E66.01 - MORBID (SEVERE) OBESITY DUE TO EXCESS CALORIES; Z68.41 - BODY MASS INDEX (BMI) 40.0-44.9, ADULT Status: Acute Comment: Encourgae pt to Exercise after Cardiac Rehab. (3) CHRISTOPHER (obstructive sleep apnea) Code(s): G47.33 - OBSTRUCTIVE SLEEP APNEA (ADULT) (PEDIATRIC) Status: Acute Comment: Will bree Monitor pt for Sleep apnea. CPAP at night, (4) CAD (coronary artery disease) Code(s): I25.10 - ATHSCL HEART DISEASE OF [place] CORONARY ARTERY W/O ANG PCTRS Status: Chronic Qualifiers: Comment: COntinue with Aspirin, Hold BB per cardilogy (5) HLD (hyperlipidemia) Code(s): E78.5 - HYPERLIPIDEMIA, UNSPECIFIED Status: Chronic Qualifiers: Comment: Continue Home Meds. (6) HTN (hypertension), benign Code(s): I10 - ESSENTIAL (PRIMARY) HYPERTENSION Status: Chronic Comment: Stbale, Will continue to Monitor Keep sytolic >100 and hold Meds if needed. (7) Acute respiratory failure with hypoxia Code(s): J96.01 - ACUTE RESPIRATORY FAILURE WITH HYPOXIA Status: Resolved Comment: likely from CHF, will closley Monitor continue diuresis. - Plan cont current plan of care, PT/OT, respiratory therapy, out of bed/ambulate, DVT proph w/lovenox * . - Discharge Day Encounter end time: 12:30 Review of Systems - Review of Systems Constitutional: negative: fever, chills, sweats, weakness, malaise, other Eyes: negative: Pain, Vision Change, Conjunctivae Inflammation, Eyelid Inflammation, Redness, Other ENT: negative: Ear Pain, Ear Discharge, Nose Pain, Nose Discharge, Nose Congestion, Mouth Pain, Mouth Swelling, Throat Pain, Throat Swelling, Other Respiratory: Cough, Shortness of Breath, SOB with Excertion, Wheezing Cardiovascular: negative: chest pain, palpitations, orthopnea, paroxysmal nocturnal dyspnea, edema, light headedness, other Gastrointestinal: negative: Nausea, Vomiting, Abdominal Pain, Diarrhea, Constipation, Melena, Hematochezia, Other Genitourinary: negative: Dysuria, Frequency, Incontinence, Hematuria, Retention , Other Musculoskeletal: negative: Neck Pain, Shoulder Pain, Arm Pain, Back Pain, Hand Pain, Leg Pain, Foot Pain, Other - Medications/Allergies Allergies/Adverse Reactions: Allergies Allergy/AdvReac Type Severity Reaction Status Date / Time lisinopril Allergy Verified 07/24/16 02:02 Medications: Current Medications Acetaminophen (Tylenol) 650 mg PO Q4H PRN PRN Reason: Headache/Fever or Pain Last Admin: 08/25/17 20:14 Dose: 650 mg Al Hydroxide/Mg Hydroxide (Maalox) 30 ml PO Q6H PRN PRN Reason: Heartburn or Indigestion Albuterol/Ipratropium (Duoneb) 3 ml NEB [id number] PRN PRN Reason: SOB &/or Wheezing Last Admin: 08/27/17 18:50 Dose: 3 ml Aspirin (Aspirin Chewable) 81 mg PO DAILY [facility] Last Admin: 08/28/17 10:03 Dose: 81 mg Atorvastatin Calcium (Lipitor) 10 mg PO DAILY [facility] Last Admin: 08/28/17 10:03 Dose: 10 mg Bisacodyl (Dulcolax) 10 mg PO DAILYPRN PRN PRN Reason: Constipation Calcium Carbonate (Tums) 1,000 mg PO Q4H PRN PRN Reason: Heartburn or Indigestion Carvedilol (Coreg) 3.125 mg PO BID [facility] Last Admin: 08/28/17 10:03 Dose: 3.125 mg Citalopram Hydrobromide (Celexa) 20 mg PO DAILY [facility] Last Admin: 08/28/17 10:03 Dose: 20 mg Clonidine (Catapres) 0.1 mg PO Q4H PRN PRN Reason: Systolic BP > 160 Enoxaparin Sodium (Lovenox) 40 mg SC 0900 [facility] Last Admin: 08/28/17 10:06 Dose: Not Given Famotidine (Pepcid) 20 mg PO BID [facility] Last Admin: 08/28/17 10:03 Dose: 20 mg Furosemide (Lasix) 80 mg PO 0900 [facility] Guaifenesin (Robitussin Sf) 200 mg PO Q4H PRN PRN Reason: Cough Last Admin: 08/26/17 22:44 Dose: 200 mg Guaifenesin (Mucinex) 600 mg PO Q12HR [facility] Last Admin: 08/28/17 10:06 Dose: 600 mg Hydralazine HCl (Apresoline) 10 mg SLOW IVP Q4H PRN PRN Reason: Systolic BP > 180 Amiodarone HCl 450 mg/Miscellaneous Medication 1 each/ Dextrose/Water 259 mls @ 8 mls/hr IVPB INF [facility] PRN Reason: Protocol Last Admin: 08/28/17 06:12 Dose: 259 mls Loratadine (Claritin) 10 mg PO DAILYPRN PRN PRN Reason: Sinus Symptoms Lorazepam (Ativan) 0.5 mg PO Q8H PRN PRN Reason: Anxiety Losartan Potassium (Cozaar) 100 mg PO DAILY [facility] Last Admin: 08/28/17 10:10 Dose: 100 mg Nitroglycerin (Nitrostat) 0.4 mg SL Q5MIN PRN PRN Reason: Chest Pain Nystatin (Mycostatin Powder) 0 gm TOP BID [facility] Last Admin: 08/28/17 10:00 Dose: 1 applic Ondansetron HCl (Zofran) 4 mg IVP Q6H PRN PRN Reason: Nausea/Vomiting Last Admin: 08/28/17 06:11 Dose: 4 mg Potassium Chloride (K-Dur) 20 meq PO BID-[facility] Last Admin: 08/28/17 10:06 Dose: Not Given Senna (Senokot) 2 tab PO HSPRN PRN PRN Reason: Constipation Sodium Chloride (Flush - Normal Saline) 10 ml IVF Q12HR [facility] Last Admin: 08/28/17 10:12 Dose: 10 ml Sodium Chloride (Flush - Normal Saline) 10 ml IVF PRN PRN PRN Reason: Saline Flush Tramadol HCl (Ultram) 50 mg PO Q4H PRN PRN Reason: Moderate Pain (4-6)
[2017-08-28] MEDS ORDERED: CEFAZOLIN/Water 2 GM/20 ML SYRINGE ONE (17:07)
[2017-08-28] MEDS ORDERED: Ketamine 50 MG/ML VIAL ONE (18:00)
[2017-08-28] MEDS ORDERED: Fentanyl 100 MCG/2 ML VIAL ONE (18:00)
[2017-08-28] MEDS ORDERED: Midazolam HCl 2 mg/2 ml Vial ONE (18:01)
[2017-08-28] MEDS ORDERED: Lidocaine 1% (PF) 30 ML VIAL ONE (19:02)
[2017-08-28] MEDS ORDERED: Mag-Al 1200 mg/1200 mg/30 ML UDCUP PO PRN (20:29)
[2017-08-28] MEDS ORDERED: traMADol HCl 50 MG TAB PO PRN (20:29)
[2017-08-28] MEDS ORDERED: Acetaminophen 325 MG TAB PO PRN (20:29)
[2017-08-28] MEDS ORDERED: Temazepam 15 MG CAP PO PRN (20:29)
[2017-08-28] MEDS ORDERED: Nitroglycerin 0.4 MG TAB (25 Tab Bottle) SL PRN (20:29)
[2017-08-28] MEDS ORDERED: Ondansetron HCl/PF 4 MG/2 ML Vial IVP PRN (20:29)
[2017-08-28] MEDS ORDERED: diphenhydrAMINE 25 MG CAP PO PRN (20:29)
[2017-08-28] MEDS ORDERED: Silver Sulfadiazine 1% Cream 50 GM JAR TOP PRN (20:29)
[2017-08-28] MEDS ORDERED: Bisacodyl 5 MG TAB PO PRN (20:29)
[2017-08-28] MEDS ORDERED: Bisacodyl 10 MG SUPP PR PRN (20:29)
[2017-08-28] MEDS: Cephalexin 250 MG CAP PO SCH (23:43)
[2017-08-29] MEDS: Cephalexin 250 MG CAP PO SCH ×4 (05:23→23:57)
[2017-08-29] MEDS ORDERED: Furosemide 40 MG TAB PO SCH (09:00)
[2017-08-29] MEDS: Furosemide 80 MG TAB PO SCH (09:36)
[2017-08-29] MEDS: Losartan 25 MG TAB PO SCH (09:36)
[2017-08-29] MEDS: Atorvastatin Calcium 10 MG TAB PO SCH (09:37)
[2017-08-29] MEDS: Citalopram 20 MG TAB PO SCH (09:37)
[2017-08-29] MEDS: Potassium Chloride 20 MEQ TAB PO SCH ×2 (09:37→17:20)
[2017-08-29] MEDS: Famotidine 20 MG TAB PO SCH ×2 (09:37→20:58)
[2017-08-29] MEDS: Carvedilol 3.125 MG TAB PO SCH ×2 (09:37→20:58)
[2017-08-29] MEDS: guaiFENesin ER 600 MG TAB PO SCH ×2 (09:37→20:58)
[2017-08-29] MEDS: Nystatin Powder 15 GM BOT TOP SCH ×2 (09:38→20:58)
--- NOTE | 2017-08-29 09:47 | RAD ---
CHEST 1 VIEW: Date: 08/29/17 HISTORY: Cardiac device placement. COMPARISON: Chest 1 view dated 08/24/17. FINDINGS: Multiple cardiac wires project over the mediastinum with what appears to be a new defibrillator lead. Heart size is enlarged. Small effusions. No pneumothorax. IMPRESSION: Uncomplicated placement of what appears to be a new single lead defibrillator. POS: [facility]
[2017-08-29] MEDS: Enoxaparin Sodium 40 MG/0.4 ML SYRINGE SC SCH (09:49)
--- NOTE | 2017-08-29 13:35 | PDOC.CTH ---
<Sandrine Ruth - Last Filed: 08/29/17 13:45> Cardiology Progress Note - Subjective The pt seen and examined. No overnight events. No cardiac complaints. She denied pain or warmness to the AICD site. Per The pt's report, she had [employer] monitor education by [employer] nurse this AM. - Objective Vital Signs Temp Pulse Resp BP Pulse Ox 08/29/17 12:00 97.9 F 132/78 98 08/29/17 08:00 66 20 140/79 99 08/29/17 04:00 97.5 F L 60 18 131/60 99 Weight 230 lb 08/28/17 08/29/17 08/30/17 06:59 06:59 06:59 Intake Total 696 580 Output Total 2140 600 Balance -1444 -20 - Physical Examination General/Neuro: alert & oriented x3 Neck: no JVD present Lungs: CTA Heart: RRR Abdomen: soft Extremities: other: (No edema) - Telemetry Telemetry Rhythm: Apaced with PVCs - Labs Result Diagrams: 08/25/17 04:27 08/28/17 05:09 Troponin/CKMB CK-MB (CK-2) 1.2 ng/mL (0-6.6) 08/24/17 01:14 Troponin I 0.064 ng/mL (< 0.028) H 08/24/17 06:57 - Assessment/Plan 1. 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 monitor on tele 2. Non sustained wide complex tachycardia/VT- on BBlocker; cont. monitor on tele 3. Acue on Chronic systolic HF - stable with Lasix, BBlocker, and ARB; cont. monitor 4. Hx of Sick Sinus Syndrome with PM placement - stable with AICD; cont. monitor on tele 5. CAD with CABG - stable 6. HTN - stable with current medication 7. Hyperlipidemia - on Statin 8. CHRISTOPHER - cont. monitor; CPAP at night MAR reviewed Review of Systems - Review of Systems Constitutional: reports: no symptoms reported EENTM: reports: no symptoms reported Respiratory: reports: no symptoms reported Cardiac (ROS): reports: no symptoms reported ABD/GI: reports: no symptoms reported : reports: no symptoms reported Musculoskeletal: reports: no symptoms reported Skin: reports: no symptoms reported <Ewelina Salmeron - Last Filed: 08/30/17 01:32> Cardiology Progress Note - Objective Vital Signs Temp Pulse Resp BP Pulse Ox 08/29/17 20:00 97.8 F 60 18 115/54 L 97 08/29/17 16:00 97.6 F 60 20 133/69 100 08/29/17 14:28 80 16 Weight 230 lb 08/28/17 08/29/17 08/30/17 06:59 06:59 06:59 Intake Total 696 580 600 Output Total 2140 600 1200 Balance -1444 -20 -600 - Labs Result Diagrams: 08/25/17 04:27 08/29/17 22:33 Troponin/CKMB CK-MB (CK-2) 1.2 ng/mL (0-6.6) 08/24/17 01:14 Troponin I 0.064 ng/mL (< 0.028) H 08/24/17 06:57 - Assessment/Plan The pt. was seen and eval. by me. I agree with the A/P by the BILL DISTRIBUTOR.
--- NOTE | 2017-08-29 14:24 | PDOC.PN ---
- Subjective Encounter Start Date: 08/29/17 Encounter Start Time: 13:00 Joseph is seen today, alert and oriened. No othjer Concerns noted. She has persistant Cough. - Objective MAR Reviewed: Yes Vital Signs & Weight: Vital Signs (12 hours) Temp Pulse Resp BP Pulse Ox 08/29/17 12:00 97.9 F 132/78 98 08/29/17 08:00 66 20 140/79 99 08/29/17 04:00 97.5 F L 60 18 131/60 99 Weight Weight 230 lb I&O: 08/28/17 08/29/17 08/30/17 06:59 06:59 06:59 Intake Total 696 580 Output Total 2140 600 Balance -1444 -20 Result Diagrams: 08/25/17 04:27 08/28/17 05:09 Phys Exam - Physical Examination HEENT: PERRLA, moist MMs Neck: no nodes, no JVD Respiratory: wheezing present Cardiovascular: RRR, no significant murmur Gastrointestinal: soft, non-tender, no distention Musculoskeletal: no edema, pulses present Neurological: non-focal, normal sensation Lymphatic: no nodes Psychiatric: normal affect, A&O x 3 Dx/Plan (1) Acute CHF (congestive heart failure) Code(s): I50.9 - HEART FAILURE, UNSPECIFIED Status: Acute Comment: Patient Seen by Cardiology now has AICD , COntinue with IV lasix IV BID. stbale with good diuresis. (2) Morbid obesity with BMI of 40.0-44.9, adult Code(s): E66.01 - MORBID (SEVERE) OBESITY DUE TO EXCESS CALORIES; Z68.41 - BODY MASS INDEX (BMI) 40.0-44.9, ADULT Status: Acute Comment: Encourgae pt to Exercise after Cardiac Rehab. (3) CHRISTOPHER (obstructive sleep apnea) Code(s): G47.33 - OBSTRUCTIVE SLEEP APNEA (ADULT) (PEDIATRIC) Status: Acute Comment: Will bree Monitor pt for Sleep apnea. CPAP at night, (4) CAD (coronary artery disease) Code(s): I25.10 - ATHSCL HEART DISEASE OF [place] CORONARY ARTERY W/O ANG PCTRS Status: Chronic Qualifiers: Comment: COntinue with Aspirin, Hold BB per cardilogy (5) HLD (hyperlipidemia) Code(s): E78.5 - HYPERLIPIDEMIA, UNSPECIFIED Status: Chronic Qualifiers: Comment: Continue Home Meds. (6) HTN (hypertension), benign Code(s): I10 - ESSENTIAL (PRIMARY) HYPERTENSION Status: Chronic Comment: Mor, Will continue to Monitor Keep sytolic >100 and hold Meds if needed. (7) Acute respiratory failure with hypoxia Code(s): J96.01 - ACUTE RESPIRATORY FAILURE WITH HYPOXIA Status: Resolved Comment: likely from CHF, will closley Monitor continue diuresis. - Plan cont current plan of care, mcadams catheter, respiratory therapy, incentive spirometry, out of bed/ambulate, DVT proph w/lovenox * . - Discharge Day Encounter end time: 13:35 Review of Systems - Review of Systems Eyes: negative: Pain, Vision Change, Conjunctivae Inflammation, Eyelid Inflammation, Redness, Other ENT: negative: Ear Pain, Ear Discharge, Nose Pain, Nose Discharge, Nose Congestion, Mouth Pain, Mouth Swelling, Throat Pain, Throat Swelling, Other Respiratory: negative: Cough, Dry, Shortness of Breath, Hemoptysis, SOB with Excertion, Pleuritic Pain, Sputum, Wheezing Cardiovascular: negative: chest pain, palpitations, orthopnea, paroxysmal nocturnal dyspnea, edema, light headedness, other Gastrointestinal: negative: Nausea, Vomiting, Abdominal Pain, Diarrhea, Constipation, Melena, Hematochezia, Other Genitourinary: negative: Dysuria, Frequency, Incontinence, Hematuria, Retention , Other - Medications/Allergies Allergies/Adverse Reactions: Allergies Allergy/AdvReac Type Severity Reaction Status Date / Time lisinopril Allergy Verified 07/24/16 02:02 Medications: Current Medications Acetaminophen (Tylenol) 650 mg PO Q4H PRN PRN Reason: Mild Pain 1-3 Al Hydroxide/Mg Hydroxide (Maalox) 15 ml PO Q4H PRN PRN Reason: Heartburn or Indigestion Albuterol/Ipratropium (Duoneb) 3 ml NEB [id number] PRN PRN Reason: SOB &/or Wheezing Last Admin: 08/27/17 18:50 Dose: 3 ml Aspirin (Aspirin Chewable) 81 mg PO DAILY [facility] Last Admin: 08/29/17 09:37 Dose: 81 mg Atorvastatin Calcium (Lipitor) 10 mg PO DAILY [facility] Last Admin: 08/29/17 09:37 Dose: 10 mg Bisacodyl (Dulcolax) 5 mg PO DAILYPRN PRN PRN Reason: CONSTIAPT Bisacodyl (Dulcolax) 10 mg [place] DAILYPRN PRN PRN Reason: Constipation Calcium Carbonate (Tums) 1,000 mg PO Q4H PRN PRN Reason: Heartburn or Indigestion Carvedilol (Coreg) 3.125 mg PO BID [facility] Last Admin: 08/29/17 09:37 Dose: 3.125 mg Cephalexin (Keflex) 500 mg PO Q6HR [facility] Last Admin: 08/29/17 12:53 Dose: 500 mg Citalopram Hydrobromide (Celexa) 20 mg PO DAILY [facility] Last Admin: 08/29/17 09:37 Dose: 20 mg Clonidine (Catapres) 0.1 mg PO Q4H PRN PRN Reason: Systolic BP > 160 Diphenhydramine HCl (Benadryl) 25 mg PO Q6H PRN PRN Reason: Itching Enoxaparin Sodium (Lovenox) 40 mg SC 0900 [facility] Last Admin: 08/29/17 09:49 Dose: 40 mg Famotidine (Pepcid) 20 mg PO BID [facility] Last Admin: 08/29/17 09:37 Dose: 20 mg Furosemide (Lasix) 80 mg PO 0900 [facility] Last Admin: 08/29/17 09:36 Dose: 80 mg Guaifenesin (Robitussin Sf) 200 mg PO Q4H PRN PRN Reason: Cough Last Admin: 08/26/17 22:44 Dose: 200 mg Guaifenesin (Mucinex) 600 mg PO Q12HR [facility] Last Admin: 08/29/17 09:37 Dose: 600 mg Hydralazine HCl (Apresoline) 10 mg SLOW IVP Q4H PRN PRN Reason: Systolic BP > 180 Loratadine (Claritin) 10 mg PO DAILYPRN PRN PRN Reason: Sinus Symptoms Lorazepam (Ativan) 0.5 mg PO Q8H PRN PRN Reason: Anxiety Losartan Potassium (Cozaar) 100 mg PO DAILY [facility] Last Admin: 08/29/17 09:36 Dose: 100 mg Nitroglycerin (Nitrostat) 0.4 mg SL Q5MIN PRN PRN Reason: Chest Pain Nystatin (Mycostatin Powder) 0 gm TOP BID [facility] Last Admin: 08/29/17 09:38 Dose: 1 applic Ondansetron HCl (Zofran) 4 mg IVP Q6H PRN PRN Reason: Nausea/Vomiting Potassium Chloride (K-Dur) 20 meq PO BID-[facility] Last Admin: 08/29/17 09:37 Dose: 20 meq Senna (Senokot) 2 tab PO HSPRN PRN PRN Reason: Constipation Silver Sulfadiazine (Silvadene) 0 gm TOP Q12H PRN PRN Reason: Rash/Topical Irritation Sodium Chloride (Flush - Normal Saline) 10 ml IVF Q12HR [facility] Last Admin: 08/29/17 09:38 Dose: 10 ml Sodium Chloride (Flush - Normal Saline) 10 ml IVF PRN PRN PRN Reason: Saline Flush Temazepam (Restoril) 15 mg PO HSPRN PRN PRN Reason: Insomnia Tramadol HCl (Ultram) 50 mg PO Q4H PRN PRN Reason: FOR MODERATE PAIN 4-6
--- NOTE | 2017-08-29 15:15 | EKG ---
Test Reason : Blood Pressure : / mmHG Vent. Rate : 096 BPM Atrial Rate : 096 BPM P-R Int : 144 ms QRS Dur : 098 ms QT Int : 394 ms P-R-T Axes : 057 061 -29 degrees QTc Int : 497 ms Normal sinus rhythm Possible Left atrial enlargement Abnormal ECG Confirmed by JES ROQUE, RHINA ([id number]), department editor SONU POWELL ([id number]) on 08/29/2017 3:14:31 PM Referred By: JES Confirmed By:RHINA ANDRE MD
[2017-08-29 23:00] LABS: Anion Gap 11 mmol/L (10-20); BUN (Urea Nitrogen) 23 mg/dL (9.8-20.1); Calc. Creatinine Clearance 100 mL/min (70-130); Calcium 8.3 mg/dL (7.8-10.44); Carbon Dioxide 34 mmol/L (23-31); Chloride 98 mmol/L (98-107); Estimated GFR-MDRD 67; Glucose 109 mg/dL (83-110); Magnesium 1.9 mg/dL (1.6-2.6); Potassium 3.1 mmol/L (3.5-5.1); Sodium 140 mmol/L (136-145)
--- NOTE | 2017-08-30 01:12 | PRG ---
ICD INTERROGATION REPORT SUBJECTIVE: Mrs. Fleming is doing well 1 day after her dual chamber ICD upgrade. OBJECTIVE DATA: VITAL SIGNS: Blood pressure 131/60, heart rate 60, respirations 18, temperature 97.5 degrees Fahrenheit. The interrogation of the ICD revealed a [employer] dual chamber ICD with battery voltage is beginning of life. Lead parameters are all adequate with ohms in the atrium, 494 ohms in the right ventricle, sensing 3.3 and over 20 millivolts respectively. Capture threshold is adequate at 1.4 and 0.5 volts at 0.4 milliseconds. Chest x-ray this morning reveals no pneumothorax. CONCLUSION: Adequately functioning dual chamber ICD 1-day post-implant. PLAN: Routine postoperative care. Antibiotics for 1 week. Follow up in 2 weeks at the office for wound check. EFREN
[2017-08-30] MEDS: Cephalexin 250 MG CAP PO SCH ×4 (05:46→23:14)
[2017-08-30 07:42] LABS: Anion Gap 14 mmol/L (10-20); BUN (Urea Nitrogen) 19 mg/dL (9.8-20.1); Calc. Creatinine Clearance 110 mL/min (70-130); Calcium 8.4 mg/dL (7.8-10.44); Carbon Dioxide 32 mmol/L (23-31); Chloride 101 mmol/L (98-107); Estimated GFR-MDRD 77; Glucose 74 mg/dL (83-110); Magnesium 2.1 mg/dL (1.6-2.6); Potassium 3.5 mmol/L (3.5-5.1); Sodium 143 mmol/L (136-145)
[2017-08-30] MEDS: Potassium Chloride 20 MEQ TAB PO SCH ×2 (08:59→17:36)
[2017-08-30] MEDS: guaiFENesin ER 600 MG TAB PO SCH ×2 (09:00→20:26)
[2017-08-30] MEDS: Citalopram 20 MG TAB PO SCH (09:00)
[2017-08-30] MEDS: Losartan 25 MG TAB PO SCH (09:00)
[2017-08-30] MEDS: Carvedilol 3.125 MG TAB PO SCH ×2 (09:00→20:26)
[2017-08-30] MEDS: Atorvastatin Calcium 10 MG TAB PO SCH (09:00)
[2017-08-30] MEDS: Famotidine 20 MG TAB PO SCH ×2 (09:00→20:26)
[2017-08-30] MEDS: Furosemide 80 MG TAB PO SCH (09:00)
[2017-08-30] MEDS: Nystatin Powder 15 GM BOT TOP SCH ×2 (09:01→20:26)
[2017-08-30] MEDS: Enoxaparin Sodium 40 MG/0.4 ML SYRINGE SC SCH (09:07)
--- NOTE | 2017-08-30 13:32 | PDOC.PN ---
- Subjective Encounter Start Date: 08/30/17 Encounter Start Time: 12:00 Patient is seen today alert and oriented, No other concern noted. Cough is improving with IV lasix. - Objective MAR Reviewed: Yes Vital Signs & Weight: Vital Signs (12 hours) Temp Pulse Resp BP Pulse Ox 08/30/17 08:00 97.8 F 68 20 135/70 97 08/30/17 04:00 96.9 F L 60 18 132/67 99 Weight Weight 222 lb 14.4 oz I&O: 08/29/17 08/30/17 08/31/17 06:59 06:59 06:59 Intake Total 580 960 Output Total 600 1750 Balance -20 -790 Result Diagrams: 08/25/17 04:27 08/30/17 07:10 Radiology Reviewed by me: Yes Phys Exam - Physical Examination HEENT: PERRLA, moist MMs Neck: no nodes, no JVD Respiratory: wheezing present Cardiovascular: RRR, no significant murmur Gastrointestinal: soft, non-tender Musculoskeletal: pulses present, edema present Neurological: non-focal, normal sensation Lymphatic: no nodes Psychiatric: normal affect, A&O x 3 Dx/Plan (1) Acute CHF (congestive heart failure) Code(s): I50.9 - HEART FAILURE, UNSPECIFIED Status: Acute Comment: Patient Seen by Cardiology now has AICD , Pt on lasix Po BID. stbale with good diuresis. (2) Morbid obesity with BMI of 40.0-44.9, adult Code(s): E66.01 - MORBID (SEVERE) OBESITY DUE TO EXCESS CALORIES; Z68.41 - BODY MASS INDEX (BMI) 40.0-44.9, ADULT Status: Acute Comment: Encourgae pt to Exercise after Cardiac Rehab. (3) CHRISTOPHER (obstructive sleep apnea) Code(s): G47.33 - OBSTRUCTIVE SLEEP APNEA (ADULT) (PEDIATRIC) Status: Acute Comment: Will bree Monitor pt for Sleep apnea. CPAP at night, (4) CAD (coronary artery disease) Code(s): I25.10 - ATHSCL HEART DISEASE OF [place] CORONARY ARTERY W/O ANG PCTRS Status: Chronic Qualifiers: Comment: COntinue with Aspirin, Hold BB per cardilogy (5) HLD (hyperlipidemia) Code(s): E78.5 - HYPERLIPIDEMIA, UNSPECIFIED Status: Chronic Qualifiers: Comment: Continue Home Meds. (6) HTN (hypertension), benign Code(s): I10 - ESSENTIAL (PRIMARY) HYPERTENSION Status: Chronic Comment: Stbale, Will continue to Monitor Keep sytolic >100 and hold Meds if needed. (7) Acute respiratory failure with hypoxia Code(s): J96.01 - ACUTE RESPIRATORY FAILURE WITH HYPOXIA Status: Resolved Comment: likely from CHF, will closley Monitor continue diuresis. - Plan cont current plan of care, PT/OT, manager social work, respiratory therapy, incentive spirometry, out of bed/ambulate, DVT proph w/lovenox * . - Discharge Day Encounter end time: 12:35 Review of Systems - Review of Systems Constitutional: negative: fever, chills, sweats, weakness, malaise, other Eyes: negative: Pain, Vision Change, Conjunctivae Inflammation, Eyelid Inflammation, Redness, Other ENT: negative: Ear Pain, Ear Discharge, Nose Pain, Nose Discharge, Nose Congestion, Mouth Pain, Mouth Swelling, Throat Pain, Throat Swelling, Other Respiratory: negative: Cough, Dry, Shortness of Breath, Hemoptysis, SOB with Excertion, Pleuritic Pain, Sputum, Wheezing Cardiovascular: negative: chest pain, palpitations, orthopnea, paroxysmal nocturnal dyspnea, edema, light headedness, other Gastrointestinal: negative: Nausea, Vomiting, Abdominal Pain, Diarrhea, Constipation, Melena, Hematochezia, Other Genitourinary: negative: Dysuria, Frequency, Incontinence, Hematuria, Retention , Other Musculoskeletal: negative: Neck Pain, Shoulder Pain, Arm Pain, Back Pain, Hand Pain, Leg Pain, Foot Pain, Other Skin: negative: Rash, Lesions, Davis, Bruising, Other Neurological: negative: Weakness, Numbness, Incoordination, Change in Speech, Confusion, Seizures, Other - Medications/Allergies Allergies/Adverse Reactions: Allergies Allergy/AdvReac Type Severity Reaction Status Date / Time lisinopril Allergy Verified 07/24/16 02:02 Medications: Current Medications Acetaminophen (Tylenol) 650 mg PO Q4H PRN PRN Reason: Mild Pain 1-3 Al Hydroxide/Mg Hydroxide (Maalox) 15 ml PO Q4H PRN PRN Reason: Heartburn or Indigestion Albuterol/Ipratropium (Duoneb) 3 ml NEB [id number] PRN PRN Reason: SOB &/or Wheezing Last Admin: 08/29/17 14:28 Dose: 3 ml Aspirin (Aspirin Chewable) 81 mg PO DAILY [facility] Last Admin: 08/30/17 09:00 Dose: 81 mg Atorvastatin Calcium (Lipitor) 10 mg PO DAILY [facility] Last Admin: 08/30/17 09:00 Dose: 10 mg Bisacodyl (Dulcolax) 5 mg PO DAILYPRN PRN PRN Reason: CONSTIAPT Bisacodyl (Dulcolax) 10 mg [place] DAILYPRN PRN PRN Reason: Constipation Calcium Carbonate (Tums) 1,000 mg PO Q4H PRN PRN Reason: Heartburn or Indigestion Carvedilol (Coreg) 3.125 mg PO BID [facility] Last Admin: 08/30/17 09:00 Dose: 3.125 mg Cephalexin (Keflex) 500 mg PO Q6HR [facility] Last Admin: 08/30/17 05:46 Dose: 500 mg Citalopram Hydrobromide (Celexa) 20 mg PO DAILY [facility] Last Admin: 08/30/17 09:00 Dose: 20 mg Clonidine (Catapres) 0.1 mg PO Q4H PRN PRN Reason: Systolic BP > 160 Diphenhydramine HCl (Benadryl) 25 mg PO Q6H PRN PRN Reason: Itching Enoxaparin Sodium (Lovenox) 40 mg SC 0900 [facility] Last Admin: 08/30/17 09:07 Dose: 40 mg Famotidine (Pepcid) 20 mg PO BID [facility] Last Admin: 08/30/17 09:00 Dose: 20 mg Furosemide (Lasix) 80 mg PO 0900 [facility] Last Admin: 08/30/17 09:00 Dose: 80 mg Guaifenesin (Robitussin Sf) 200 mg PO Q4H PRN PRN Reason: Cough Last Admin: 08/26/17 22:44 Dose: 200 mg Guaifenesin (Mucinex) 600 mg PO Q12HR [facility] Last Admin: 08/30/17 09:00 Dose: 600 mg Hydralazine HCl (Apresoline) 10 mg SLOW IVP Q4H PRN PRN Reason: Systolic BP > 180 Loratadine (Claritin) 10 mg PO DAILYPRN PRN PRN Reason: Sinus Symptoms Lorazepam (Ativan) 0.5 mg PO Q8H PRN PRN Reason: Anxiety Losartan Potassium (Cozaar) 100 mg PO DAILY [facility] Last Admin: 08/30/17 09:00 Dose: 100 mg Nitroglycerin (Nitrostat) 0.4 mg SL Q5MIN PRN PRN Reason: Chest Pain Nystatin (Mycostatin Powder) 0 gm TOP BID [facility] Last Admin: 08/30/17 09:01 Dose: 1 applic Ondansetron HCl (Zofran) 4 mg IVP Q6H PRN PRN Reason: Nausea/Vomiting Potassium Chloride (K-Dur) 20 meq PO BID-[facility] Last Admin: 08/30/17 08:59 Dose: 20 meq Senna (Senokot) 2 tab PO HSPRN PRN PRN Reason: Constipation Silver Sulfadiazine (Silvadene) 0 gm TOP Q12H PRN PRN Reason: Rash/Topical Irritation Sodium Chloride (Flush - Normal Saline) 10 ml IVF Q12HR [facility] Last Admin: 08/30/17 09:01 Dose: 10 ml Sodium Chloride (Flush - Normal Saline) 10 ml IVF PRN PRN PRN Reason: Saline Flush Temazepam (Restoril) 15 mg PO HSPRN PRN PRN Reason: Insomnia Tramadol HCl (Ultram) 50 mg PO Q4H PRN PRN Reason: FOR MODERATE PAIN 4-6
--- NOTE | 2017-08-30 15:20 | PDOC.CTH ---
<Sandrine Ruth - Last Filed: 08/30/17 15:18> Cardiology Progress Note - Subjective The pt seen and examined. No overnight events. No cardiac complaints. She complains of pain to Rt hand from IV site. - Objective Vital Signs Temp Pulse Resp BP Pulse Ox 08/30/17 08:00 97.8 F 68 20 135/70 97 08/30/17 04:00 96.9 F L 60 18 132/67 99 Weight 222 lb 14.4 oz 08/29/17 08/30/17 08/31/17 06:59 06:59 06:59 Intake Total 580 960 Output Total 600 1750 Balance -20 -790 - Physical Examination General/Neuro: alert & oriented x3 Neck: no JVD present Lungs: CTA Heart: RRR Abdomen: soft Extremities: other: (No edema) - Telemetry Telemetry Rhythm: A paced - Labs Result Diagrams: 08/25/17 04:27 08/30/17 07:10 Troponin/CKMB CK-MB (CK-2) 1.2 ng/mL (0-6.6) 08/24/17 01:14 Troponin I 0.064 ng/mL (< 0.028) H 08/24/17 06:57 - Assessment/Plan 1. 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 monitor on tele 2. Non sustained wide complex tachycardia/VT- on BBlocker; cont. monitor on tele 3. Acue on Chronic systolic HF - stable with Lasix, BBlocker, and ARB; cont. monitor 4. Hx of Sick Sinus Syndrome with PM placement - stable with AICD; cont. monitor on tele 5. CAD with CABG - stable 6. HTN - stable with current medication 7. Hyperlipidemia - on Statin 8. CHRISTOPHER - cont. monitor; CPAP at night MAR reviewed Review of Systems - Review of Systems Constitutional: reports: no symptoms reported EENTM: reports: no symptoms reported Respiratory: reports: no symptoms reported Cardiac (ROS): reports: no symptoms reported ABD/GI: reports: no symptoms reported Skin: reports: see HPI <Ewelina Salmeron - Last Filed: 08/31/17 09:52> Cardiology Progress Note - Objective Vital Signs Temp Pulse Resp BP Pulse Ox 08/31/17 03:43 98.3 F 88 20 141/80 H 93 L 08/31/17 00:00 98.3 F 61 20 119/65 96 08/30/17 22:03 73 20 97 Weight 224 lb 6.4 oz 08/30/17 08/31/17 09/01/17 06:59 06:59 06:59 Intake Total 960 1080 Output Total 1750 1600 Balance -790 -520 - Labs Result Diagrams: 08/25/17 04:27 08/30/17 07:10 Troponin/CKMB CK-MB (CK-2) 1.2 ng/mL (0-6.6) 08/24/17 01:14 Troponin I 0.064 ng/mL (< 0.028) H 08/24/17 06:57 - Assessment/Plan Pt. seen and eval. by me . I agree with the A/P by the RN SANE. Poor prognosis.
[2017-08-30] MEDS: Diabetic Tussin 200 MG/10 ML UDCUP PO PRN (23:13)
[2017-08-31] MEDS: Cephalexin 250 MG CAP PO SCH ×4 (05:03→23:21)
[2017-08-31] MEDS: Diabetic Tussin 200 MG/10 ML UDCUP PO PRN ×2 (05:03→20:32)
[2017-08-31] MEDS ORDERED: Furosemide 100 MG/10 ML VIAL SLOW IVP SCH (08:45)
[2017-08-31] MEDS ORDERED: Furosemide 40 MG/4 ML VIAL IVP SCH (08:45)
--- NOTE | 2017-08-31 09:00 | PRG ---
DATE OF SERVICE: 08/31/2017 Ms. Fleming states she is feeling better overall. She does continue to complain of mid shortness of br eath. She continues to wheeze. PHYSICAL EXAMINATION: VITAL SIGNS: Blood pressure 141/80, pulse 88, temperature 98.3. LUNGS: Wheezing noted bilaterally with crackles. HEART: Regular rate and rhythm. ABDOMEN: Soft, nontender, nondistended. EXTREMITIES: No edema. CURRENT MEDICATIONS: Coreg 3.125 mg 1 p.o. b.i.d., aspirin 81 mg daily, atorvastatin 10 daily. Lasi x 80 p.o. IMPRESSION: 1. Acute on chronic systolic heart failure. 2. [id number] elevation myocardial infarction. 3. Status post implantable cardioverter/defibrillator. 4. Reactive airway disease. RECOMMENDATIONS: 1. Will discontinue Coreg given continued wheezing. 2. Change Lasix to IV. 3. Ambulation.
[2017-08-31] MEDS: Famotidine 20 MG TAB PO SCH ×2 (09:08→20:32)
[2017-08-31] MEDS: Potassium Chloride 20 MEQ TAB PO SCH ×2 (09:08→17:55)
[2017-08-31] MEDS: Atorvastatin Calcium 10 MG TAB PO SCH (09:08)
[2017-08-31] MEDS: Losartan 25 MG TAB PO SCH (09:08)
[2017-08-31] MEDS: guaiFENesin ER 600 MG TAB PO SCH ×2 (09:08→20:32)
[2017-08-31] MEDS: Citalopram 20 MG TAB PO SCH ×2 (09:09→21:36)
[2017-08-31] MEDS: Nystatin Powder 15 GM BOT TOP SCH ×2 (09:22→20:32)
[2017-08-31] MEDS: Enoxaparin Sodium 40 MG/0.4 ML SYRINGE SC SCH (09:32)
--- NOTE | 2017-08-31 12:16 | PDOC.PN ---
- Subjective Encounter Start Date: 08/31/17 Encounter Start Time: 09:15 -: old records requested/rev Pt seen and examined, chart reviewed in its entirety, this is my first visit with this patient Pt still has a mcadams in, when asked why she stated because she cant make it to the bathroom. Asked her what the d/C plan was and she aid home. no f/C, no N/V /D/c, no CP, some PAINTER, no SOB at rest. 10 point ROS performed and neg for all systems except as above - Objective MAR Reviewed: Yes Vital Signs & Weight: Vital Signs (12 hours) Temp Pulse Resp BP Pulse Ox 08/31/17 10:46 95 08/31/17 10:44 70 18 92 L 08/31/17 03:43 98.3 F 88 20 141/80 H 93 L Weight Weight 224 lb 6.4 oz I&O: 08/30/17 08/31/17 09/01/17 06:59 06:59 06:59 Intake Total 960 1080 Output Total 1750 1600 Balance -790 -520 Result Diagrams: 08/25/17 04:27 08/30/17 07:10 Radiology Reviewed by me: Yes EKG Reviewed by me: Yes Phys Exam - Physical Examination Constitutional: NAD HEENT: PERRLA, moist MMs, sclera anicteric, oral pharynx no lesions Neck: no nodes, no JVD, supple, full ROM Respiratory: no wheezing, no rhonchi bibasilar crackle,s no prolonged exp phase Cardiovascular: RRR, no significant murmur, no rub AICD impant site c/d/I Gastrointestinal: soft, non-tender, no distention, positive bowel sounds Musculoskeletal: no edema, pulses present Neurological: non-focal, normal sensation, moves all 4 limbs Lymphatic: no nodes Psychiatric: normal affect, A&O x 3 Skin: no rash, normal turgor, cap refill <2 seconds Deviation from normal: right hand with 2x1cm tense hemtoma. tender, not hot Dx/Plan - Plan * .
--- NOTE | 2017-08-31 13:03 | PDOC.CTH ---
Cardiology Progress Note - Subjective EP progress note Patient seen and reports doing well since AICD implant on Thursday. She has been out of bed a few times today and is tolerating more activity. She continue to have shortness of breath and activity intolerance. She denies any pain, tenderness, or discharge from her implant site. - ROS shortness of breath - Objective Vital Signs Temp Pulse Resp BP Pulse Ox 08/31/17 10:46 95 08/31/17 10:44 70 18 92 L 08/31/17 03:43 98.3 F 88 20 141/80 H 93 L Weight 224 lb 6.4 oz 08/30/17 08/31/17 09/01/17 06:59 06:59 06:59 Intake Total 960 1080 Output Total 1750 1600 Balance -790 -520 - Physical Examination General/Neuro: alert & oriented x3, NAD Neck: no JVD present Lungs: unlabored respirations, other: (bilateral wheezes) Heart: RRR Abdomen: no HSM, NT/ND, soft Extremities: + edema B - Telemetry Telemetry Rhythm: NSR/ demand pacing - Labs Result Diagrams: 08/25/17 04:27 08/30/17 07:10 - Assessment/Plan 1. Ischemic cardiomyopathy with severely reduced ER- s/p AICD implant on Thursday08/18/17. Implant site healing nicely without signs of complication or infection. Keep site clean and dry. Continue prophylactic oral antibiotics. 2. NSVT- previously on amiodarone gtt. Currently quiescent. 3. Sick sinus syndrome s/p pacemaker implant in remote past 4. Congestive heart failure- continue to diurese 5. Acute viral respiratory illness- resolving Signing off patient care at this time. Arrhythmia controlled. AICD site healing nicely. Request follow up in clinic in 10-14 days for site check. Thank you again for the referral.
[2017-08-31] MEDS: cloNIDine 0.1 MG TAB PO PRN (20:32)
[2017-09-01] MEDS: Cephalexin 250 MG CAP PO SCH ×3 (05:44→17:33)
[2017-09-01] MEDS: Potassium Chloride 20 MEQ TAB PO SCH ×2 (09:04→16:32)
[2017-09-01] MEDS: Atorvastatin Calcium 10 MG TAB PO SCH (09:05)
[2017-09-01] MEDS: Enoxaparin Sodium 40 MG/0.4 ML SYRINGE SC SCH (09:05)
[2017-09-01] MEDS: Famotidine 20 MG TAB PO SCH ×2 (09:05→21:08)
[2017-09-01] MEDS: Losartan 25 MG TAB PO SCH (09:06)
[2017-09-01] MEDS: guaiFENesin ER 600 MG TAB PO SCH ×2 (09:06→21:08)
[2017-09-01] MEDS: Nystatin Powder 15 GM BOT TOP SCH ×2 (09:07→21:08)
--- NOTE | 2017-09-01 09:09 | PRG ---
DATE OF SERVICE: 09/01/2017 SUBJECTIVE: Ms. Fleming states she is breathing better today. She had significant diuresis overnight. She has lost 10 pounds since her admission. She continues to have mild crackles noted in the bases bilaterally. She has not had a CBC in 1 week. Her last BNP was 2 days ago. She is complaining of pain to her right hand due to recent thrombophlebitis from an IV. PHYSICAL EXAMINATION: VITAL SIGNS: Blood pressure 142/96, pulse 91, temperature 97.8. LUNGS: Crackles bilaterally. CARDIAC: Regular rate and rhythm. ABDOMEN: Soft, nontender, nondistended. EXTREMITIES: Erythema and edema present overlying the right hand with thrombophlebitis present. PERTINENT LABS: CBC and base met are pending. IMPRESSION: 1. Acute on chronic systolic heart failure. 2. Status post ICD placement. 3. Recent phlebitis. RECOMMENDATIONS: At this point I would recommend Keflex in addition to warm compresses. She recentl y had a device placed and would not want that the device to be seated. We will avoid nonsteroidal th erapy. Compression may also help improve symptoms. Lasix 80 mg IV has been given.
[2017-09-01 10:01] LABS: #Eosinphils 0.3 thou/uL (0.0-0.7); #Lymphocytes 1.7 thou/uL (1.20-3.40); #Monocytes 0.6 thou/uL (0.11-0.59); #Neutrophils 5.4 thou/uL (1.40-6.50); %Basophils 0.5 % (0.0-1.0); %Eosinophils 3.2 % (0.0-10.0); %Lymphocytes 20.9 % (21.0-51.0); %Neutrophils 68.4 % (42.0-75.0); Hemoglobin 13.4 g/dL (12.0-16.0); Mean Corpuscular Hemoglobin 26.4 pg (27.0-31.0); Mean Corpuscular Volume 85.2 fl (81.0-99.0); Platelet Count 217 thou/uL (130-400); RBC Distribution Width 15.6 % (11.5-14.5); Red Blood Cell (RBC) Count 5.07 mill/uL (4.20-5.40); White Blood Cell (WBC) Count 7.9 thou/uL (4.8-10.8)
[2017-09-01] MEDS: Furosemide 40 MG TAB PO SCH (10:31)
[2017-09-01 10:35] LABS: Anion Gap 11 mmol/L (10-20); Calc. Creatinine Clearance 113 mL/min (70-130); Carbon Dioxide 32 mmol/L (23-31); Chloride 99 mmol/L (98-107); Estimated GFR-MDRD 81; Glucose 130 mg/dL (83-110); Magnesium 1.8 mg/dL (1.6-2.6); Potassium 3.3 mmol/L (3.5-5.1); Sodium 139 mmol/L (136-145)
[2017-09-01 11:39] LABS: BUN (Urea Nitrogen) 11 mg/dL (9.8-20.1)
--- NOTE | 2017-09-01 13:40 | PDOC.PN ---
- Subjective Encounter Start Date: 09/01/17 Encounter Start Time: 08:30 Pt seen earlier on rounds. States breathing is pretty good, no new problems overnight. Complains of pain to right hand still, hematoma a little larger and a little warmer, not pointing, exquisitely tender. Denies f/c, no N/V/D/c, no CP Working with PT, states she requires a LITTLe help, review of notes shows she is requiring maximal assist X 2. Discussed rehab with her and she is agreeable , Rehab screen ordered. Case management informed me later that her insurance likely would no approve, if not will try SNF 10 point ROS performed and neg for all system except as per HPI - Objective MAR Reviewed: Yes Vital Signs & Weight: Vital Signs (12 hours) Temp Pulse Resp BP BP Pulse Ox 09/01/17 12:15 97.6 F 85 18 130/86 96 09/01/17 07:50 97.8 F 91 18 142/96 H 95 09/01/17 04:00 97.7 F 65 15 138/94 H 98 Weight Weight 220 lb I&O: 08/31/17 09/01/17 09/02/17 06:59 06:59 06:59 Intake Total 1080 1200 Output Total 1600 2570 Balance -520 -1370 Result Diagrams: 09/01/17 09:54 09/01/17 09:54 Radiology Reviewed by me: Yes EKG Reviewed by me: Yes Phys Exam - Physical Examination Constitutional: NAD HEENT: PERRLA, moist MMs, sclera anicteric, oral pharynx no lesions Neck: no nodes, no JVD, supple, full ROM Respiratory: no wheezing, no rales, no rhonchi, clear to auscultation bilateral Cardiovascular: RRR, no significant murmur, no rub Gastrointestinal: soft, non-tender, no distention, positive bowel sounds Musculoskeletal: pulses present, edema present Neurological: non-focal, normal sensation, moves all 4 limbs Lymphatic: no nodes Psychiatric: normal affect, A&O x 3 Deviation from normal: right hand with dorsal echyymosis/hematoma, very tender Dx/Plan (1) Demand ischemia Code(s): I24.8 - OTHER FORMS OF ACUTE ISCHEMIC HEART DISEASE Status: Acute (2) Morbid obesity with BMI of 40.0-44.9, adult Code(s): E66.01 - MORBID (SEVERE) OBESITY DUE TO EXCESS CALORIES; Z68.41 - BODY MASS INDEX (BMI) 40.0-44.9, ADULT Status: Acute Comment: Encourgae pt to Exercise after Cardiac Rehab. (3) CHRISTOPHER (obstructive sleep apnea) Code(s): G47.33 - OBSTRUCTIVE SLEEP APNEA (ADULT) (PEDIATRIC) Status: Acute Comment: Will bree Monitor pt for Sleep apnea. CPAP at night, (4) Nonsustained ventricular tachycardia Code(s): I47.2 - VENTRICULAR TACHYCARDIA Status: Acute (5) Ischemic cardiomyopathy Code(s): I25.5 - ISCHEMIC CARDIOMYOPATHY Status: Acute (6) Systolic CHF, acute on chronic Code(s): I50.23 - ACUTE ON CHRONIC SYSTOLIC (CONGESTIVE) HEART FAILURE Status : Acute - Plan cont current plan of care, continue antibiotics, PT/OT, DVT proph w/lovenox * . s/p AICD. Hand beginning to look infected, continue PO suppression for now with keflex. Warm compresses, may need to directly drain to Rehab when arranged and cleared by cardiology - EP has already cleared
[2017-09-01] MEDS: cloNIDine 0.1 MG TAB PO PRN (21:07)
[2017-09-01] MEDS: Citalopram 20 MG TAB PO SCH (21:08)
[2017-09-02] MEDS: Cephalexin 250 MG CAP PO SCH ×3 (05:52→11:59)
[2017-09-02] MEDS ORDERED: Furosemide 100 MG/10 ML VIAL SLOW IVP SCH (08:00)
[2017-09-02] MEDS ORDERED: Furosemide 40 MG/4 ML VIAL IVP SCH (09:00)
[2017-09-02] MEDS: Atorvastatin Calcium 10 MG TAB PO SCH (09:22)
[2017-09-02] MEDS: Potassium Chloride 20 MEQ TAB PO SCH (09:22)
[2017-09-02] MEDS: Enoxaparin Sodium 40 MG/0.4 ML SYRINGE SC SCH (09:22)
[2017-09-02] MEDS: Losartan 25 MG TAB PO SCH (09:23)
[2017-09-02] MEDS: Nystatin Powder 15 GM BOT TOP SCH (09:24)
[2017-09-02] MEDS: Famotidine 20 MG TAB PO SCH (10:12)
[2017-09-02] MEDS: guaiFENesin ER 600 MG TAB PO SCH (10:12)
[2017-09-02 11:43] LABS: Anion Gap 17 mmol/L (10-20); BUN (Urea Nitrogen) 11 mg/dL (9.8-20.1); Calc. Creatinine Clearance 101 mL/min (70-130); Calcium 9.5 mg/dL (7.8-10.44); Carbon Dioxide 26 mmol/L (23-31); Chloride 101 mmol/L (98-107); Estimated GFR-MDRD 71; Glucose 118 mg/dL (83-110); Magnesium 2.1 mg/dL (1.6-2.6); Sodium 140 mmol/L (136-145)
[2017-09-02 12:50] VITALS: BP 131/93; TEMP 97.6
== END 2017-09-02 13:50 | disposition home health service (06) | DRG 226 ==
LOC: ERS 00:50 → ERHOLD 03:16 → IMCU/EMU 17:20 → 2NO 08-26 15:18
PROVIDERS: ADMIT Internal Medicine; ATTEND Internal Medicine
PROC: 0JPT0PZ Removal of Cardiac Rhythm Related Device from Trunk Subcutaneous Tissue and Fascia, Open Approach (ICD-10-PCS; principal; 2017-08-28)
PROC: 02HK3KZ Insertion of Defibrillator Lead into Right Ventricle, Percutaneous Approach (ICD-10-PCS; 2017-08-28)
PROC: 0JH608Z Insertion of Defibrillator Generator into Chest Subcutaneous Tissue and Fascia, Open Approach (ICD-10-PCS; 2017-08-28)
DX: I13.0 Hypertensive heart and chronic kidney disease with heart failure and stage 1 through stage 4 chronic kidney disease, or unspecified chronic kidney disease (principal); I50.23 Acute on chronic systolic (congestive) heart failure; J96.01 Acute respiratory failure with hypoxia; N17.9 Acute kidney failure, unspecified; I47.1 Supraventricular tachycardia; Z68.41 Body mass index [BMI] 40.0-44.9, adult; I24.8 Other forms of acute ischemic heart disease; Z95.1 Presence of aortocoronary bypass graft; E66.01 Morbid (severe) obesity due to excess calories; I25.5 Ischemic cardiomyopathy; I25.10 Atherosclerotic heart disease of native coronary artery without angina pectoris; G47.33 Obstructive sleep apnea (adult) (pediatric); E78.5 Hyperlipidemia, unspecified; J45.909 Unspecified asthma, uncomplicated; J06.9 Acute upper respiratory infection, unspecified; F41.9 Anxiety disorder, unspecified; I49.5 Sick sinus syndrome; N18.3 Chronic kidney disease, stage 3 (moderate)
CPT/HCPCS: 33233; 33249; 36005; 36415; 36416; 51702; 71045; 75820; 80048; 80053; 82550; 82553; 82805; 83690; 83735; 83880; 84484; 85025; 85379; 85610; 85730; 93005; 93798; 94640; 96361; 96365; 96366; 96372; 96375; 96376; A4216; C1721; C1777; G8978-GP-CM; G8979-GP-CK; G8987-GO-CL; G8988-GO-CJ; J0282; J1650; J1940; J2001; J2250; J2405; J3010; J3480; J3490; J7070; J7620

== ENCOUNTER 2017-09-20 03:16 | Inpatient (IN) | payer MEDICARE ==
[2017-09-20 04:11] LABS: #Lymphocytes 1.5 thou/uL (1.20-3.40); #Monocytes 0.5 thou/uL (0.11-0.59); #Neutrophils 9.1 thou/uL (1.40-6.50); %Eosinophils 0.2 % (0.0-10.0); %Lymphocytes 13.2 % (21.0-51.0); %Monocytes 4.5 % (0.0-10.0); %Neutrophils 82.1 % (42.0-75.0); Hemoglobin 11.2 g/dL (12.0-16.0); Mean Corpuscular HGB CONC 31.9 g/dL (32.0-36.0); Mean Corpuscular Hemoglobin 27.4 pg (27.0-31.0); Mean Platelet Volume 8.7 fL (7.4-10.4); Platelet Count 182 thou/uL (130-400); RBC Distribution Width 16.3 % (11.5-14.5); Red Blood Cell (RBC) Count 4.08 mill/uL (4.20-5.40); White Blood Cell (WBC) Count 11.1 thou/uL (4.8-10.8)
[2017-09-20] MEDS ORDERED: Nitroglycerin 2% Ointment 1 INCH/1 GM Packet ONE (04:21)
[2017-09-20] MEDS ORDERED: Furosemide 20 MG/2 ML VIAL ONE (04:21)
[2017-09-20 04:36] LABS: ALT (SGPT) 14 U/L (8-55); AST (SGOT) 16 U/L (5-34); Alkaline Phosphatase 89 U/L (40-150); Anion Gap 12 mmol/L (10-20); BUN (Urea Nitrogen) 13 mg/dL (9.8-20.1); Bilirubin, Total 0.8 mg/dL (0.2-1.2); CK (CPK) 29 U/L (29-168); CKMB 1.4 ng/mL (0-6.6); Calc. Creatinine Clearance 0 mL/min (70-130); Calcium 8.8 mg/dL (7.8-10.44); Carbon Dioxide 23 mmol/L (23-31); Chloride 107 mmol/L (98-107); Estimated GFR-MDRD 77; Globulin 3.5 g/dL (2.4-3.5); Glucose 148 mg/dL (83-110); Potassium 3.4 mmol/L (3.5-5.1); Protein, Total 6.5 g/dL (6.0-8.3); Sodium 139 mmol/L (136-145); Troponin I 0.076 ng/mL (< 0.028)
[2017-09-20] MEDS ORDERED: HYDROcodone/Acetaminophen 5/325 mg Tablet PO PRN ×2 (05:16→08:21)
[2017-09-20] MEDS ORDERED: Acetaminophen 325 MG TAB PO PRN (05:17)
[2017-09-20] MEDS ORDERED: Ondansetron ODT 4 MG TAB PO PRN ×2 (06:38→08:21)
[2017-09-20] MEDS ORDERED: Ondansetron HCl/PF 4 MG/2 ML Vial IVP PRN ×2 (06:38→08:21)
[2017-09-20 06:43] VITALS: BMI 40.7
[2017-09-20] MEDS ORDERED: Prevnar 13-Val Conj/PF 0.5 ML SYRINGE IM ONE (07:00)
[2017-09-20] MEDS ORDERED: Potassium Chloride 10 MEQ TAB PO SCH (08:00)
[2017-09-20] MEDS ORDERED: cefTRIAXone\\ROCEPHIN 1 GM in Sodium Chloride 0.9% 100 ML IVPB SCH (08:00)
[2017-09-20] MEDS ORDERED: metroNIDAZOLE 250 MG in Admixture Fee 2 EACH IVPB SCH (08:00)
--- NOTE | 2017-09-20 08:16 | HP ---
PRIMARY CARE PHYSICIAN: FRANCISCO Louis CHIEF COMPLAINT: Shortness of breath and coughing through the night. HISTORY OF PRESENT ILLNESS: Ms. Fleming is a pleasant 72-year-old female that has a history of ischemi c cardiomyopathy. She has an ejection fraction of approximately 10% to 15% on her last echo, which w as about 6 weeks ago. She also recently had a cardioverter defibrillator placed about 6 weeks ago as well. She, at that time, also had some mild congestive heart failure exacerbation and was diuresed and sent home, and she says that since she has been home, she has been afraid to walk, because she is afraid to fall as well as she gets short of breath every time she tries to move around. She says portia has been like this ever since she got home and she says that in the last 2 days that she has been c oughing most of the night, and the night prior to admission, she says she was up since 4:00 a.m. coug tessie and unable to catch her breath. This is the reason she called EMS and they brought her to the E where she was found to once again be in congestive heart failure exacerbation. Her proBNP is twice its normal at about 2000 and she has radiographic evidence of pulmonary edema. She says she has bee n compliant with her medications. She says she may sometimes forget to take her Lasix, but she says she takes it by the end of the day. She says she may have taken it later, but she claims she has nev er missed any doses. She denies any chest pain. She does complain of throwing up she says when she does not eat. She says it happens when she gets very hungry. She says that, when she eats, it does not bother her, it does not cause her any abdominal pain or nausea, and she says that her bowels have been fairly normal, no diarrhea. REVIEW OF SYSTEMS: Constitutional: Again, no fevers, no chills, no night sweats, no weight loss. H EENT: No headache, no dizziness, no visual changes, no sore throat, rhinorrhea, neck pain, no adenop athy. Pulmonary: No hemoptysis, no cough, no wheezing. Cardiovascular: She denies any chest pain, but she has had PND, orthopnea, and increasing lower extremity edema. No palpitations. Gastrointes tinal: As the history of present illness. Genitourinary: No urinary frequency, hematuria, no hesit ghada. Neurologic: No focal weakness, numbness, and no seizures. Psychiatric: No symptoms of anxie ty or depression. Skin and Integument: No skin changes. No rash. PAST MEDICAL HISTORY: Significant for ischemic cardiomyopathy, coronary artery disease, obesity, obs tructive sleep apnea, hypertension, hyperlipidemia, and generalized anxiety. PAST SURGICAL HISTORY: She has had coronary artery bypass grafting, left mastectomy, hysterectomy, c holecystectomy, appendectomy, right knee surgery, a pacemaker placed and then was upgraded to defibri llator cardioverter. ALLERGIES: LISINOPRIL, which causes her to cough. FAMILY HISTORY: Significant for heart disease. SOCIAL HISTORY: She is . She is a nonsmoker, nondrinker. She lives at home. She would like to be a FULL CODE. MEDICATIONS: She says they are the same as her recent admission except that she is now off of carved ilol and the remaining medicines include aspirin 325 mg daily, Lipitor 10 mg daily, Keflex, Lasix 40 mg daily, Tutor [place] 5/325 q.6 hours as needed, losartan 100 mg daily, Nitrostat 0.4 p.r.n., potassium chl oride 10 mEq daily, Zantac 75 mg daily, and tramadol 50 mg q.i.d. as needed. PHYSICAL EXAMINATION: GENERAL: She is alert and oriented. She appears to be in no acute distress. VITAL SIGNS: Blood pressure is 119/82, heart rate 89, respiratory rate of 18, temperature is 97.7. HEENT: Pupils are equal, round, and reactive. Extraocular muscles are intact. Her sclerae are anic teric. Tympanic membranes are intact. Throat: There is no erythema, no exudates. NECK: No adenopathy, no bruits. LUNGS: Significant for some rales bilaterally, primarily on the right. No wheezing. CARDIOVASCULAR: She has a normal S1 and S2. I did not appreciate an S3 or S4. No murmurs, clicks, or rubs. ABDOMEN: Soft. She does have some midline abdominal scarring, and on the right side of the abdomen, right adjacent to her scar, there is some fullness and some mild erythema of the skin as well as hailey e tenderness to palpation; however, bowel sounds are present. EXTREMITIES: She has got 2+ edema. NEUROLOGICALLY: The exam is nonfocal. LABORATORY RESULTS: White blood cell count is 11.1, hemoglobin 11.2, hematocrit is 35.1, platelet co unt is 182. Sodium 139, potassium 3.4, chloride is 107, CO2 is 23, BUN of 13, creatinine 0.74, gluco se is 148. Her natriuretic peptide was 2216. Troponin was 0.076. ASSESSMENT AND PLAN: 1. This is a pleasant 72-year-old female that presents with an exacerbation of chronic systolic hear t failure. She has some mild acute respiratory failure secondary to this. She will be admitted to [facility] and started on IV Lasix. Luckily, her renal function is intact. It could be possible that due to her severely low ejection fraction, she may be a candidate for iatrogenic agent such as dobuta mine; however, we will leave this up to Cardiology. Her copyist Dr. Brar will be consulted in the morning for further recommendations. 2. The vomiting when she does not eat. This is an unusual complaint. She has had multiple abdomina l surgeries. She could be at risk for a partial bowel obstruction and we can get an abdominal series to rule this out. Monitor her clinically. She also appears to have an abdominal wall cellulitis, w hich we can treat with Rocephin and Flagyl. 3. Hypertension. Her blood pressure appears to be well controlled. We will continue her usual medi cations for this. 4. Obstructive sleep apnea. CPAP can be used at night. Hopefully, she has her own machine, which c an be continued here in the hospital.
[2017-09-20] MEDS ORDERED: hydrALAZINE 20 MG/ML VIAL SLOW IVP PRN (08:21)
[2017-09-20 08:23] LABS: Troponin I 0.076 ng/mL (< 0.028)
[2017-09-20] MEDS: Losartan 25 MG TAB PO SCH (08:37)
[2017-09-20] MEDS: Atorvastatin Calcium 10 MG TAB PO SCH (08:37)
[2017-09-20] MEDS: cefTRIAXone\\ROCEPHIN 1 GM, Syringe 0.4 ML in Sterile Water 9.6 ML SLOW IVP SCH (08:39)
[2017-09-20] MEDS: Famotidine 20 MG TAB PO SCH ×2 (08:44→20:08)
[2017-09-20] MEDS: Enoxaparin Sodium 30 MG/0.3 ML SYRINGE SC SCH (08:44)
[2017-09-20] MEDS: Aspirin 325 mg Enteric Coated Tablet PO SCH (08:45)
[2017-09-20] MEDS: Nystatin Cream 30 GM TUBE TOP SCH ×2 (08:46→20:15)
--- NOTE | 2017-09-20 08:59 | RAD ---
CHEST 1 VIEW: HISTORY: Dyspnea. COMPARISON: 08/29/17. FINDINGS: Cardiac silhouette is magnified, enlarged, and now partially obscured by bibasilar infiltrates, left greater than right. Pulmonary vasculature is engorged. Multilead left subclavian cardiac electronic device is in place. No evidence of pneumothorax. IMPRESSION: Developing pulmonary edema. POS: [facility]
[2017-09-20] MEDS ORDERED: Citalopram 20 MG TAB PO SCH (09:00)
[2017-09-20] MEDS ORDERED: Aspirin 325 mg Enteric Coated Tablet PO SCH (09:00)
[2017-09-20] MEDS ORDERED: Enoxaparin Sodium 30 MG/0.3 ML SYRINGE SC SCH (09:00)
[2017-09-20] MEDS ORDERED: Furosemide 40 MG TAB PO SCH (09:00)
[2017-09-20] MEDS ORDERED: Famotidine 20 MG TAB PO SCH (09:00)
[2017-09-20] MEDS: Saccharomyces boulardii 250 MG CAP PO SCH (09:01)
--- NOTE | 2017-09-20 11:18 | RAD ---
KUB: COMPARISON: None. HISTORY: Vomiting periodically. FINDINGS: A single view of the abdomen shows a nonspecific, nonobstructed bowel gas pattern. Air is seen in th e rectum. No suspicious calcifications are seen. Cholecystectomy clips are seen. IMPRESSION: No evidence of obstruction. POS: [facility]
[2017-09-20 12:02] LABS: Troponin I 0.085 ng/mL (< 0.028)
[2017-09-20] MEDS: Furosemide 40 MG/4 ML VIAL SLOW IVP SCH (14:55)
[2017-09-20] MEDS: metroNIDAZOLE 250 MG in Admixture Fee 2 EACH IVPB SCH ×2 (14:56→23:09)
[2017-09-20] MEDS: Carvedilol 3.125 MG TAB PO SCH (16:32)
[2017-09-20] MEDS: traMADol HCl 50 MG TAB PO PRN (20:08)
[2017-09-21] MEDS: Acetaminophen 325 MG TAB PO PRN (03:49)
[2017-09-21] MEDS: traMADol HCl 50 MG TAB PO PRN (03:49)
[2017-09-21 05:46] LABS: #Basophils 0.1 thou/uL (0.0-0.2); #Eosinphils 0.1 thou/uL (0.0-0.7); #Lymphocytes 1.8 thou/uL (1.20-3.40); #Monocytes 0.9 thou/uL (0.11-0.59); #Neutrophils 8.8 thou/uL (1.40-6.50); %Basophils 0.5 % (0.0-1.0); %Eosinophils 1.2 % (0.0-10.0); %Lymphocytes 15.3 % (21.0-51.0); %Monocytes 7.5 % (0.0-10.0); %Neutrophils 75.5 % (42.0-75.0); Hemoglobin 11.3 g/dL (12.0-16.0); Mean Corpuscular HGB CONC 31.2 g/dL (32.0-36.0); Mean Corpuscular Volume 86.7 fl (81.0-99.0); Mean Platelet Volume 8.9 fL (7.4-10.4); Platelet Count 191 thou/uL (130-400); RBC Distribution Width 16.1 % (11.5-14.5); Red Blood Cell (RBC) Count 4.17 mill/uL (4.20-5.40); White Blood Cell (WBC) Count 11.7 thou/uL (4.8-10.8)
--- NOTE | 2017-09-21 05:46 | CON ---
DATE OF CONSULTATION: 09/20/2017 HISTORY OF PRESENT ILLNESS: The patient is a 72-year-old woman who presents for evaluation of dyspne a and lower extremity swelling. The patient has a long history of ischemic cardiomyopathy. The toby ent has previously undergone coronary artery bypass graft surgery. She has been in congestive heart failure and has a history of noncompliance. The patient reports that she has noted increasing dyspnea and lower extremity swelling. The patient denied having any chest discomfort. PAST MEDICAL HISTORY: 1. Cardiomyopathy. 2. Coronary artery disease. 3. Hypertension. 4. Dyslipidemia. 5. Sleep apnea. PAST SURGICAL HISTORY: She has had coronary artery bypass graft surgery, mastectomy, surgery for pse udoaneurysm, and history of AICD placement. FAMILY HISTORY: No strong family history of heart disease. ALLERGIES: LISINOPRIL and ASPIRIN. SOCIAL HISTORY: Nonsmoker. REVIEW OF SYSTEMS: Ten-point system otherwise unremarkable. No history of bright red blood per rect um, hematuria, or dysuria. PHYSICAL EXAMINATION: GENERAL: An obese woman, in no acute distress. VITAL SIGNS: Blood pressure 126/75. NECK: Full. LUNGS: Crackles throughout both lung pride. HEART: Regular rate and rhythm. Normal S1, S2. No murmurs. ABDOMEN: Distended. EXTREMITIES: Showed moderate bilateral edema. SKIN: Warm and dry. NEUROLOGIC: Nonfocal. VASCULAR: Radial pulses are 2+. LABORATORY AND DIAGNOSTIC DATA: Her sodium was 139, potassium 3.4, chloride 107, bicarbonate 23, BUN 13, creatinine is 0.74, glucose 148. Troponin 0.076. BNP is 2216, white blood cell count is 11.1, hemoglobin 11.2, hematocrit 35.1, platelets 182. Her EKG revealed normal sinus rhythm, nonspecific S T-T wave abnormality with frequent PVCs. IMPRESSION: 1. Congestive heart failure. 2. History of ischemic cardiomyopathy. 3. History of coronary artery bypass surgery. 4. Hypertension. 5. Dyslipidemia. 6. Sleep apnea. 7. Morbid obesity. This patient presents with a history of congestive heart failure. She has apparently been noncomplia nt with her medications. We would recommend that she be continued on diuretics, would add spironolac tone. We would also start the patient on low dose Coreg. The life-threatening consequences of her no t being compliant have been explained to the patient. We will follow this patient with you through h er hospitalization.
[2017-09-21 06:10] LABS: Anion Gap 15 mmol/L (10-20); BUN (Urea Nitrogen) 18 mg/dL (9.8-20.1); Calc. Creatinine Clearance 99 mL/min (70-130); Calcium 8.8 mg/dL (7.8-10.44); Carbon Dioxide 20 mmol/L (23-31); Chloride 105 mmol/L (98-107); Estimated GFR-MDRD 65; Glucose 83 mg/dL (83-110); Potassium 4.2 mmol/L (3.5-5.1); Sodium 136 mmol/L (136-145)
[2017-09-21] MEDS: Furosemide 40 MG/4 ML VIAL SLOW IVP SCH ×2 (06:28→14:49)
[2017-09-21] MEDS: metroNIDAZOLE 250 MG in Admixture Fee 2 EACH IVPB SCH ×3 (06:30→23:18)
[2017-09-21] MEDS: Nystatin Cream 30 GM TUBE TOP SCH ×2 (08:30→23:18)
[2017-09-21] MEDS: Enoxaparin Sodium 30 MG/0.3 ML SYRINGE SC SCH (08:44)
[2017-09-21] MEDS: Famotidine 20 MG TAB PO SCH ×2 (08:45→23:18)
[2017-09-21] MEDS: Carvedilol 3.125 MG TAB PO SCH (08:45)
[2017-09-21] MEDS: Saccharomyces boulardii 250 MG CAP PO SCH (08:45)
[2017-09-21] MEDS: Spironolactone 25 MG TAB PO SCH (08:45)
[2017-09-21] MEDS: Aspirin 325 mg Enteric Coated Tablet PO SCH (08:45)
[2017-09-21] MEDS: Losartan 25 MG TAB PO SCH (08:46)
[2017-09-21] MEDS: Atorvastatin Calcium 10 MG TAB PO SCH (08:46)
[2017-09-21] MEDS: cefTRIAXone\\ROCEPHIN 1 GM, Syringe 0.4 ML in Sterile Water 9.6 ML SLOW IVP SCH (08:47)
--- NOTE | 2017-09-21 09:13 | PDOC.PN ---
- Subjective Encounter Start Date: 09/21/17 Encounter Start Time: 09:11 Ms. Fleming says she is feeling better today. She appears much less dyspneic. She denies any abdominal discomfort. - Objective Resuscitation Status: Resuscitation Status FULL:Full Resuscitation MAR Reviewed: Yes Vital Signs & Weight: Vital Signs (12 hours) Temp Pulse Resp BP Pulse Ox 09/21/17 08:40 97.8 F 84 18 174/108 H 95 09/21/17 03:27 98.4 F 110 H 16 149/90 H 93 L Weight Weight 233 lb 3 oz I&O: 09/20/17 09/21/17 09/22/17 06:59 06:59 06:59 Intake Total 794 Output Total 1325 Balance -531 Result Diagrams: 09/21/17 04:19 09/21/17 04:19 Phys Exam - Physical Examination HEENT: PERRLA Respiratory: no rhonchi + rales at the bases Cardiovascular: RRR, no significant murmur, no rub Gastrointestinal: soft, non-tender, positive bowel sounds No erythema on the abdominal wall Musculoskeletal: edema present 2 + generalized edema Dx/Plan (1) Ischemic cardiomyopathy Code(s): I25.5 - ISCHEMIC CARDIOMYOPATHY Status: Acute (2) Morbid obesity with BMI of 40.0-44.9, adult Code(s): E66.01 - MORBID (SEVERE) OBESITY DUE TO EXCESS CALORIES; Z68.41 - BODY MASS INDEX (BMI) 40.0-44.9, ADULT Status: Acute Comment: Encourgae pt to Exercise after Cardiac Rehab. (3) CHRISTOPHER (obstructive sleep apnea) Code(s): G47.33 - OBSTRUCTIVE SLEEP APNEA (ADULT) (PEDIATRIC) Status: Acute Comment: Will bree Monitor pt for Sleep apnea. CPAP at night, (4) Systolic CHF, acute on chronic Code(s): I50.23 - ACUTE ON CHRONIC SYSTOLIC (CONGESTIVE) HEART FAILURE Status : Acute (5) HTN (hypertension), benign Code(s): I10 - ESSENTIAL (PRIMARY) HYPERTENSION Status: Chronic Comment: Tommye, Will continue to Monitor Keep sytolic >100 and hold Meds if needed. (6) Acute respiratory failure with hypoxia Code(s): J96.01 - ACUTE RESPIRATORY FAILURE WITH HYPOXIA Status: Resolved Comment: likely from CHF, will leonora Monitor continue diuresis. - Plan * Acute on chronic systolic heart failure- improved She has diuresed well overnight Continue IV Lasix * Continue low dose Carvediolol, and Spironolactone * She admits some non-compliance to me today- I again reenforced the need for compliance * HTN - blood pressure is trending down * ? Abdominal wall cellulitis- there is no erythema today- it is possible that the findings noted yesterday may have been due to volume overload- will continue Antibiotics through today, and then consider discontinuing them tomorrow. * Await further recommendations from Cardiology
[2017-09-21] MEDS ORDERED: Carvedilol 3.125 MG TAB PO SCH ×2 (09:45→17:30)
[2017-09-21] MEDS ORDERED: Carvedilol 6.25 MG TAB PO SCH (17:00)
[2017-09-22 05:21] LABS: #Eosinphils 0.4 thou/uL (0.0-0.7); #Lymphocytes 1.7 thou/uL (1.20-3.40); #Monocytes 0.7 thou/uL (0.11-0.59); #Neutrophils 7.9 thou/uL (1.40-6.50); %Basophils 0.1 % (0.0-1.0); %Eosinophils 3.3 % (0.0-10.0); %Lymphocytes 15.9 % (21.0-51.0); %Monocytes 6.9 % (0.0-10.0); %Neutrophils 73.8 % (42.0-75.0); Hemoglobin 10.5 g/dL (12.0-16.0); Mean Corpuscular HGB CONC 31.6 g/dL (32.0-36.0); Mean Corpuscular Hemoglobin 27.3 pg (27.0-31.0); Mean Corpuscular Volume 86.5 fl (81.0-99.0); Mean Platelet Volume 8.7 fL (7.4-10.4); Platelet Count 194 thou/uL (130-400); Red Blood Cell (RBC) Count 3.83 mill/uL (4.20-5.40); White Blood Cell (WBC) Count 10.7 thou/uL (4.8-10.8)
[2017-09-22] MEDS: Furosemide 40 MG/4 ML VIAL SLOW IVP SCH ×2 (05:26→14:15)
[2017-09-22 05:36] LABS: Anion Gap 12 mmol/L (10-20); BUN (Urea Nitrogen) 29 mg/dL (9.8-20.1); Calc. Creatinine Clearance 98 mL/min (70-130); Calcium 8.7 mg/dL (7.8-10.44); Carbon Dioxide 24 mmol/L (23-31); Chloride 104 mmol/L (98-107); Estimated GFR-MDRD 64; Glucose 90 mg/dL (83-110); Potassium 3.6 mmol/L (3.5-5.1); Sodium 136 mmol/L (136-145)
[2017-09-22] MEDS: metroNIDAZOLE 250 MG in Admixture Fee 2 EACH IVPB SCH (06:12)
[2017-09-22] MEDS: Enoxaparin Sodium 30 MG/0.3 ML SYRINGE SC SCH (09:04)
[2017-09-22] MEDS: Carvedilol 3.125 MG TAB PO SCH ×2 (09:04→18:15)
[2017-09-22] MEDS: Spironolactone 25 MG TAB PO SCH (09:04)
[2017-09-22] MEDS: Famotidine 20 MG TAB PO SCH ×2 (09:04→22:21)
[2017-09-22] MEDS: Aspirin 325 mg Enteric Coated Tablet PO SCH (09:04)
[2017-09-22] MEDS: Saccharomyces boulardii 250 MG CAP PO SCH (09:04)
[2017-09-22] MEDS: Nystatin Cream 30 GM TUBE TOP SCH (09:05)
[2017-09-22] MEDS: Losartan 25 MG TAB PO SCH (09:05)
[2017-09-22] MEDS: Atorvastatin Calcium 10 MG TAB PO SCH (09:05)
[2017-09-22] MEDS: cefTRIAXone\\ROCEPHIN 1 GM, Syringe 0.4 ML in Sterile Water 9.6 ML SLOW IVP SCH (10:00)
--- NOTE | 2017-09-22 10:54 | PDOC.PN ---
- Subjective Encounter Start Date: 09/22/17 Encounter Start Time: 10:52 Ms. Fleming does not have any complaints today. She was seen in follow-up of CHF exacerbation. She says she is breathing better. - Objective Resuscitation Status: Resuscitation Status FULL:Full Resuscitation MAR Reviewed: Yes Vital Signs & Weight: Vital Signs (12 hours) Temp Pulse Resp BP Pulse Ox 09/22/17 03:37 97.6 F 123 H 14 127/69 93 L 09/21/17 23:20 98.8 F 77 18 98/70 96 Weight Weight 233 lb 6 oz I&O: 09/21/17 09/22/17 09/23/17 06:59 06:59 06:59 Intake Total 794 960 Output Total 1325 725 Balance -531 235 Result Diagrams: 09/22/17 05:04 09/22/17 05:04 Phys Exam - Physical Examination HEENT: PERRLA + rales at the bases Cardiovascular: RRR, no significant murmur, no rub Gastrointestinal: soft, non-tender, positive bowel sounds Musculoskeletal: edema present 1+ pitting edema Dx/Plan (1) Ischemic cardiomyopathy Code(s): I25.5 - ISCHEMIC CARDIOMYOPATHY Status: Acute (2) Morbid obesity with BMI of 40.0-44.9, adult Code(s): E66.01 - MORBID (SEVERE) OBESITY DUE TO EXCESS CALORIES; Z68.41 - BODY MASS INDEX (BMI) 40.0-44.9, ADULT Status: Acute Comment: Encourgae pt to Exercise after Cardiac Rehab. (3) CHRISTOPHER (obstructive sleep apnea) Code(s): G47.33 - OBSTRUCTIVE SLEEP APNEA (ADULT) (PEDIATRIC) Status: Acute Comment: Will bree Monitor pt for Sleep apnea. CPAP at night, (4) Systolic CHF, acute on chronic Code(s): I50.23 - ACUTE ON CHRONIC SYSTOLIC (CONGESTIVE) HEART FAILURE Status : Acute (5) HTN (hypertension), benign Code(s): I10 - ESSENTIAL (PRIMARY) HYPERTENSION Status: Chronic Comment: Mor, Will continue to Monitor Keep sytolic >100 and hold Meds if needed. (6) Acute respiratory failure with hypoxia Code(s): J96.01 - ACUTE RESPIRATORY FAILURE WITH HYPOXIA Status: Resolved Comment: likely from CHF, will leonora Monitor continue diuresis. - Plan * Acute on chronic systolic heart failure- improving- continue to diurese * HTN- blood pressure is controlled * Cellulitis- unlikely had an infection- suspect this was due to volume overload - will discontinue antibiotics * Continue PT/OT * She may be nearing her baseline- possibly home in 1-2 days .
[2017-09-22] MEDS: Acetaminophen 325 MG TAB PO PRN (22:25)
[2017-09-23] MEDS: Furosemide 40 MG/4 ML VIAL SLOW IVP SCH ×2 (04:48→14:55)
[2017-09-23] MEDS: Nystatin Cream 30 GM TUBE TOP SCH ×3 (04:53→22:17)
[2017-09-23 05:27] LABS: Anion Gap 13 mmol/L (10-20); BUN (Urea Nitrogen) 24 mg/dL (9.8-20.1); Calc. Creatinine Clearance 107 mL/min (70-130); Calcium 8.7 mg/dL (7.8-10.44); Carbon Dioxide 26 mmol/L (23-31); Chloride 105 mmol/L (98-107); Estimated GFR-MDRD 73; Glucose 77 mg/dL (83-110); Potassium 3.7 mmol/L (3.5-5.1); Sodium 140 mmol/L (136-145)
[2017-09-23] MEDS: Enoxaparin Sodium 30 MG/0.3 ML SYRINGE SC SCH (10:13)
[2017-09-23] MEDS: Atorvastatin Calcium 10 MG TAB PO SCH (10:14)
[2017-09-23] MEDS: Saccharomyces boulardii 250 MG CAP PO SCH (10:14)
[2017-09-23] MEDS: Spironolactone 25 MG TAB PO SCH (10:14)
[2017-09-23] MEDS: Aspirin 325 mg Enteric Coated Tablet PO SCH (10:14)
[2017-09-23] MEDS: Carvedilol 3.125 MG TAB PO SCH ×2 (10:14→16:25)
[2017-09-23] MEDS: Famotidine 20 MG TAB PO SCH ×2 (10:14→22:16)
[2017-09-23] MEDS: Losartan 25 MG TAB PO SCH (10:33)
[2017-09-23] MEDS: Acetaminophen 325 MG TAB PO PRN (10:33)
--- NOTE | 2017-09-23 15:22 | PDOC.PN ---
- Subjective Encounter Start Date: 09/23/17 Encounter Start Time: 15:21 Subjective: feels better,no new complaints -: walked 60feet w PT - Objective Resuscitation Status: Resuscitation Status FULL:Full Resuscitation MAR Reviewed: Yes Vital Signs & Weight: Vital Signs (12 hours) Temp Pulse Pulse Pulse Resp BP BP 09/23/17 10:34 91 83 131/81 161/83 H 09/23/17 08:00 98.0 F 82 18 09/23/17 04:39 97.6 F 09/23/17 04:29 78 16 BP Pulse Ox Pulse Ox Pulse Ox 09/23/17 10:34 95 97 09/23/17 08:00 144/77 H 94 L 09/23/17 04:39 09/23/17 04:29 127/75 97 Weight Weight 230 lb 1 oz I&O: 09/22/17 09/23/17 09/24/17 06:59 06:59 06:59 Intake Total 960 960 Output Total 725 1610 Balance 235 -650 Result Diagrams: 09/22/17 05:04 09/23/17 04:31 Additional Labs: Microbiology 09/20/17 03:55 Venous blood - Left Hand Blood Culture - Preliminary NO GROWTH AT 48 HOURS 09/20/17 03:49 Venous blood - Right Arm Blood Culture - Preliminary NO GROWTH AT 48 HOURS Laboratory Tests 09/20/17 09/20/17 09/20/17 03:49 03:49 07:37 Troponin I 0.076 H 0.076 H B-Natriuretic Peptide 2216.9 H 09/20/17 09/21/17 11:24 04:19 Troponin I 0.085 H B-Natriuretic Peptide 1063.6 H Phys Exam - Physical Examination Constitutional: NAD HEENT: PERRLA, moist MMs, sclera anicteric, TM's clear, oral pharynx no lesions , 2+ tonsils Neck: no nodes, no JVD, supple, full ROM Respiratory: no wheezing, no rales, no rhonchi, clear to auscultation bilateral Cardiovascular: RRR, no significant murmur Gastrointestinal: soft, non-tender, no distention, positive bowel sounds Musculoskeletal: pulses present, edema present Neurological: non-focal, normal sensation, moves all 4 limbs Psychiatric: normal affect, A&O x 3 Skin: no rash Dx/Plan (1) Acute CHF (congestive heart failure) Code(s): I50.9 - HEART FAILURE, UNSPECIFIED Status: Acute Comment: Patient Seen by Cardiology has AICD , Pt on lasix IV stbale with good diuresis. (2) Demand ischemia Code(s): I24.8 - OTHER FORMS OF ACUTE ISCHEMIC HEART DISEASE Status: Acute (3) Ischemic cardiomyopathy Code(s): I25.5 - ISCHEMIC CARDIOMYOPATHY Status: Acute (4) Morbid obesity with BMI of 40.0-44.9, adult Code(s): E66.01 - MORBID (SEVERE) OBESITY DUE TO EXCESS CALORIES; Z68.41 - BODY MASS INDEX (BMI) 40.0-44.9, ADULT Status: Acute Comment: Encourgae pt to Exercise after Cardiac Rehab. (5) CHRISTOPHER (obstructive sleep apnea) Code(s): G47.33 - OBSTRUCTIVE SLEEP APNEA (ADULT) (PEDIATRIC) Status: Acute Comment: Will bree Monitor pt for Sleep apnea. CPAP at night, (6) CAD (coronary artery disease) Code(s): I25.10 - ATHSCL HEART DISEASE OF [place] CORONARY ARTERY W/O ANG PCTRS Status: Chronic Qualifiers: Comment: COntinue with Aspirin, Hold BB per cardilogy (7) HLD (hyperlipidemia) Code(s): E78.5 - HYPERLIPIDEMIA, UNSPECIFIED Status: Chronic Qualifiers: Comment: Continue Home Meds. (8) HTN (hypertension), benign Code(s): I10 - ESSENTIAL (PRIMARY) HYPERTENSION Status: Chronic Comment: Mor, Will continue to Monitor Keep sytolic >100 and hold Meds if needed. (9) Acute respiratory failure with hypoxia Code(s): J96.01 - ACUTE RESPIRATORY FAILURE WITH HYPOXIA Status: Resolved Comment: likely from CHF, will leonora Monitor continue diuresis. - Plan PT/OT, criminal justice social worker, incentive spirometry, out of bed/ambulate, DVT proph w/ SCDs cont diuresis.strict I/Os.Home meds as below. -: cardiology following. -: return home w when cleared by cardiologydav next 24-48 hrs -: am labs * . Review of Systems - Review of Systems Constitutional: weakness, malaise. negative: fever, chills, sweats, other ENT: negative: Ear Pain, Ear Discharge, Nose Pain, Nose Discharge, Nose Congestion, Mouth Pain, Mouth Swelling, Throat Pain, Throat Swelling, Other Respiratory: Dry, SOB with Excertion. negative: Cough, Shortness of Breath, Hemoptysis, Pleuritic Pain, Sputum, Wheezing Cardiovascular: negative: chest pain, palpitations, orthopnea, paroxysmal nocturnal dyspnea, edema, light headedness, other Gastrointestinal: negative: Nausea, Vomiting, Abdominal Pain, Diarrhea, Constipation, Melena, Hematochezia, Other Genitourinary: negative: Dysuria, Frequency, Incontinence, Hematuria, Retention , Other Musculoskeletal: negative: Neck Pain, Shoulder Pain, Arm Pain, Back Pain, Hand Pain, Leg Pain, Foot Pain, Other Neurological: negative: Weakness, Numbness, Incoordination, Change in Speech, Confusion, Seizures, Other - Medications/Allergies Allergies/Adverse Reactions: Allergies Allergy/AdvReac Type Severity Reaction Status Date / Time lisinopril Allergy Verified 07/24/16 02:02 Medications: Current Medications Acetaminophen (Tylenol) 650 mg PO Q4H PRN PRN Reason: Headache/Fever or Pain Last Admin: 09/23/17 10:33 Dose: 650 mg Hydrocodone Bitart/Acetaminophen ([place] 5/325) 1 tab PO Q6H PRN PRN Reason: Pain 7-10 Hydrocodone Bitart/Acetaminophen ([place] 5/325) 1 tab PO Q4H PRN PRN Reason: Moderate Pain (4-6) Aspirin (Ecotrin) 325 mg PO DAILY [facility] Last Admin: 09/23/17 10:14 Dose: 325 mg Atorvastatin Calcium (Lipitor) 10 mg PO DAILY [facility] Last Admin: 09/23/17 10:14 Dose: 10 mg Carvedilol (Coreg) 3.125 mg PO BID-[facility] Last Admin: 09/23/17 10:14 Dose: 3.125 mg Enoxaparin Sodium (Lovenox) 30 mg SC 0900 [facility] Last Admin: 09/23/17 10:13 Dose: 30 mg Famotidine (Pepcid) 20 mg PO BID [facility] Last Admin: 09/23/17 10:14 Dose: 20 mg Furosemide (Lasix) 40 mg SLOW IVP 0600,1400 [facility] Last Admin: 09/23/17 04:48 Dose: 40 mg Hydralazine HCl (Apresoline) 10 mg SLOW IVP Q4H PRN PRN Reason: Systolic BP > 180 Losartan Potassium (Cozaar) 100 mg PO DAILY [facility] Last Admin: 09/23/17 10:33 Dose: 100 mg Nystatin (Mycostatin Cream) 1 gm TOP BID [facility] Last Admin: 09/23/17 10:15 Dose: 1 gm Ondansetron HCl (Zofran Odt) 4 mg PO Q6H PRN PRN Reason: Nausea/Vomiting Ondansetron HCl (Zofran) 4 mg IVP Q6H PRN PRN Reason: Nausea/Vomiting Saccharomyces Boulardii (Florastor) 250 mg PO DAILY [facility] Last Admin: 09/23/17 10:14 Dose: 250 mg Sodium Chloride (Flush - Normal Saline) 10 ml IVF Q12HR [facility] Last Admin: 09/23/17 10:15 Dose: 10 ml Sodium Chloride (Flush - Normal Saline) 10 ml IVF PRN PRN PRN Reason: Saline Flush Last Admin: 09/23/17 04:49 Dose: 10 ml Spironolactone (Aldactone) 25 mg PO QAM-WM [facility] Last Admin: 09/23/17 10:14 Dose: 25 mg Tramadol HCl (Ultram) 50 mg PO QID PRN PRN Reason: Pain 4-6 Last Admin: 09/21/17 03:49 Dose: 50 mg
--- NOTE | 2017-09-23 22:16 | PRG ---
DATE OF SERVICE: 09/23/2017 SUBJECTIVE: Ms. Fleming is feeling better. She is less shortness of breath. She has been on diuretic therapy and is diuresed. OBJECTIVE: VITAL SIGNS: Blood pressure 161/83, pulse 82, temperature 98. LUNGS: Minimal crackles bilaterally. HEART: Regular rate and rhythm. ABDOMEN: Soft, nontender, nondistended. EXTREMITIES: No edema. IMPRESSION: 1. Acute on chronic systolic heart failure. 2. Status post ICD. 3. Severe coronary artery disease. RECOMMENDATIONS: Ms. Fleming has continued to diurese. She is minus I's and O's net over the last 24 hours. Her weight has gone from 237 to 230. Continue current treatment. Anticipate discharge in ne xt 1 to 2 days.
[2017-09-24] MEDS: Furosemide 40 MG/4 ML VIAL SLOW IVP SCH (05:34)
[2017-09-24 07:39] LABS: Anion Gap 14 mmol/L (10-20); BUN (Urea Nitrogen) 27 mg/dL (9.8-20.1); Calc. Creatinine Clearance 52 mL/min (70-130); Calcium 8.9 mg/dL (7.8-10.44); Carbon Dioxide 27 mmol/L (23-31); Chloride 103 mmol/L (98-107); Estimated GFR-MDRD 32; Glucose 101 mg/dL (83-110); Potassium 3.5 mmol/L (3.5-5.1); Sodium 140 mmol/L (136-145)
[2017-09-24] MEDS: Spironolactone 25 MG TAB PO SCH (10:12)
[2017-09-24] MEDS: Famotidine 20 MG TAB PO SCH ×2 (10:12→20:59)
[2017-09-24] MEDS: Carvedilol 3.125 MG TAB PO SCH (10:12)
[2017-09-24] MEDS: Atorvastatin Calcium 10 MG TAB PO SCH (10:12)
[2017-09-24] MEDS: Nystatin Cream 30 GM TUBE TOP SCH ×2 (10:12→21:00)
[2017-09-24] MEDS: Enoxaparin Sodium 30 MG/0.3 ML SYRINGE SC SCH (10:12)
[2017-09-24] MEDS: Aspirin 325 mg Enteric Coated Tablet PO SCH (10:12)
[2017-09-24] MEDS: Saccharomyces boulardii 250 MG CAP PO SCH (10:12)
[2017-09-24] MEDS: Losartan 25 MG TAB PO SCH (10:16)
--- NOTE | 2017-09-24 13:04 | PDOC.PN ---
- Subjective Encounter Start Date: 09/24/17 Encounter Start Time: 13:02 Subjective: feels bad today,still easily SOB w walking -: walked about 68feet & O2 sats in 88-89% w/o O2 afterwards - Objective Resuscitation Status: Resuscitation Status FULL:Full Resuscitation MAR Reviewed: Yes Vital Signs & Weight: Vital Signs (12 hours) Temp Pulse Resp BP Pulse Ox 09/24/17 03:58 97.5 F L 95 16 133/96 H 95 Weight Weight 229 lb 9.6 oz I&O: 09/23/17 09/24/17 09/25/17 06:59 06:59 06:59 Intake Total 960 1840 Output Total 1610 1250 Balance -650 590 Result Diagrams: 09/22/17 05:04 09/24/17 07:06 Additional Labs: Laboratory Tests 08/24/17 09/20/17 09/20/17 01:15 03:49 03:49 Creatinine 0.74 B-Natriuretic Peptide 1664.9 H 2216.9 H 09/21/17 09/21/17 09/22/17 04:19 04:19 05:04 Creatinine 0.86 0.87 B-Natriuretic Peptide 1063.6 H 09/23/17 09/24/17 04:31 07:06 Creatinine 0.78 1.60 H B-Natriuretic Peptide Phys Exam - Physical Examination Constitutional: NAD tired looking HEENT: PERRLA, moist MMs, sclera anicteric, oral pharynx no lesions Neck: no nodes, no JVD, supple, full ROM Respiratory: no wheezing, no rales, no rhonchi, clear to auscultation bilateral Cardiovascular: RRR, no significant murmur Gastrointestinal: soft, non-tender, no distention, positive bowel sounds Musculoskeletal: no edema, pulses present Neurological: non-focal, normal sensation, moves all 4 limbs Psychiatric: normal affect, A&O x 3 Skin: no rash Dx/Plan (1) DARRIN (acute kidney injury) Code(s): N17.9 - ACUTE KIDNEY FAILURE, UNSPECIFIED Status: Acute (2) Acute CHF (congestive heart failure) Code(s): I50.9 - HEART FAILURE, UNSPECIFIED Status: Acute Comment: Patient Seen by Cardiology. has AICD (3) Demand ischemia Code(s): I24.8 - OTHER FORMS OF ACUTE ISCHEMIC HEART DISEASE Status: Acute (4) Ischemic cardiomyopathy Code(s): I25.5 - ISCHEMIC CARDIOMYOPATHY Status: Chronic Comment: AICD in place.EF 10-15% (5) Morbid obesity with BMI of 40.0-44.9, adult Code(s): E66.01 - MORBID (SEVERE) OBESITY DUE TO EXCESS CALORIES; Z68.41 - BODY MASS INDEX (BMI) 40.0-44.9, ADULT Status: Chronic Comment: Encourgae pt to Exercise after Cardiac Rehab. (6) CHRISTOPHER (obstructive sleep apnea) Code(s): G47.33 - OBSTRUCTIVE SLEEP APNEA (ADULT) (PEDIATRIC) Status: Chronic Comment: Will bree Monitor pt for Sleep apnea. CPAP at night, (7) CAD (coronary artery disease) Code(s): I25.10 - ATHSCL HEART DISEASE OF [place] CORONARY ARTERY W/O ANG PCTRS Status: Chronic Qualifiers: Comment: COntinue with Aspirin, Hold BB per cardilogy (8) HLD (hyperlipidemia) Code(s): E78.5 - HYPERLIPIDEMIA, UNSPECIFIED Status: Chronic Qualifiers: Comment: Continue Home Meds. (9) HTN (hypertension), benign Code(s): I10 - ESSENTIAL (PRIMARY) HYPERTENSION Status: Chronic Comment: Mor, Will continue to Monitor Keep sytolic >100 and hold Meds if needed. (10) Acute respiratory failure with hypoxia Code(s): J96.01 - ACUTE RESPIRATORY FAILURE WITH HYPOXIA Status: Resolved Comment: likely from CHF, will leonora Monitor continue diuresis. - Plan PT/OT, psychotherapist social worker, respiratory therapy, incentive spirometry, out of bed/ ambulate, DVT proph w/SCDs Hold lasix today for worsening renal function.monitor. -: still needing O2,not safe for DC -: will re-evaluate in am. -: refuses HF clinic appt as it is difficult for her to travel -: cont rest of meds as below.ASA,statin,BB,ARB,aldactone * . Review of Systems - Review of Systems Constitutional: weakness, malaise. negative: fever, chills, sweats, other Respiratory: SOB with Excertion. negative: Cough, Dry, Shortness of Breath, Hemoptysis, Pleuritic Pain, Sputum, Wheezing Cardiovascular: negative: chest pain, palpitations, orthopnea, paroxysmal nocturnal dyspnea, edema, light headedness, other Gastrointestinal: negative: Nausea, Vomiting, Abdominal Pain, Diarrhea, Constipation, Melena, Hematochezia, Other Genitourinary: negative: Dysuria, Frequency, Incontinence, Hematuria, Retention , Other Musculoskeletal: negative: Neck Pain, Shoulder Pain, Arm Pain, Back Pain, Hand Pain, Leg Pain, Foot Pain, Other Skin: negative: Rash, Lesions, Davis, Bruising, Other Neurological: negative: Weakness, Numbness, Incoordination, Change in Speech, Confusion, Seizures, Other - Medications/Allergies Allergies/Adverse Reactions: Allergies Allergy/AdvReac Type Severity Reaction Status Date / Time lisinopril Allergy Verified 07/24/16 02:02 Medications: Current Medications Acetaminophen (Tylenol) 650 mg PO Q4H PRN PRN Reason: Headache/Fever or Pain Last Admin: 09/23/17 10:33 Dose: 650 mg Hydrocodone Bitart/Acetaminophen ([place] 5/325) 1 tab PO Q6H PRN PRN Reason: Pain 7-10 Hydrocodone Bitart/Acetaminophen ([place] 5/325) 1 tab PO Q4H PRN PRN Reason: Moderate Pain (4-6) Aspirin (Ecotrin) 325 mg PO DAILY [facility] Last Admin: 09/24/17 10:12 Dose: 325 mg Atorvastatin Calcium (Lipitor) 10 mg PO DAILY [facility] Last Admin: 09/24/17 10:12 Dose: 10 mg Carvedilol (Coreg) 3.125 mg PO BID-[facility] Last Admin: 09/24/17 10:12 Dose: 3.125 mg Enoxaparin Sodium (Lovenox) 30 mg SC 0900 [facility] Last Admin: 09/24/17 10:12 Dose: 30 mg Famotidine (Pepcid) 20 mg PO BID [facility] Last Admin: 09/24/17 10:12 Dose: 20 mg Hydralazine HCl (Apresoline) 10 mg SLOW IVP Q4H PRN PRN Reason: Systolic BP > 180 Losartan Potassium (Cozaar) 100 mg PO DAILY [facility] Last Admin: 09/24/17 10:16 Dose: 100 mg Nystatin (Mycostatin Cream) 1 gm TOP BID [facility] Last Admin: 09/24/17 10:12 Dose: 1 gm Ondansetron HCl (Zofran Odt) 4 mg PO Q6H PRN PRN Reason: Nausea/Vomiting Ondansetron HCl (Zofran) 4 mg IVP Q6H PRN PRN Reason: Nausea/Vomiting Saccharomyces Boulardii (Florastor) 250 mg PO DAILY [facility] Last Admin: 09/24/17 10:12 Dose: 250 mg Sodium Chloride (Flush - Normal Saline) 10 ml IVF Q12HR [facility] Last Admin: 09/23/17 22:18 Dose: 10 ml Sodium Chloride (Flush - Normal Saline) 10 ml IVF PRN PRN PRN Reason: Saline Flush Last Admin: 09/23/17 04:49 Dose: 10 ml Spironolactone (Aldactone) 25 mg PO QAM-WM [facility] Last Admin: 09/24/17 10:12 Dose: 25 mg Tramadol HCl (Ultram) 50 mg PO QID PRN PRN Reason: Pain 4-6 Last Admin: 09/21/17 03:49 Dose: 50 mg
[2017-09-24] MEDS ORDERED: Carvedilol 3.125 MG TAB PO SCH (17:00)
[2017-09-25 05:33] LABS: Anion Gap 15 mmol/L (10-20); BUN (Urea Nitrogen) 31 mg/dL (9.8-20.1); Calc. Creatinine Clearance 49 mL/min (70-130); Calcium 9.3 mg/dL (7.8-10.44); Carbon Dioxide 26 mmol/L (23-31); Chloride 102 mmol/L (98-107); Estimated GFR-MDRD 29; Glucose 102 mg/dL (83-110); Potassium 3.2 mmol/L (3.5-5.1); Sodium 140 mmol/L (136-145)
[2017-09-25] MEDS: Aspirin 325 mg Enteric Coated Tablet PO SCH (08:42)
[2017-09-25] MEDS: Spironolactone 25 MG TAB PO SCH (08:42)
[2017-09-25] MEDS: Atorvastatin Calcium 10 MG TAB PO SCH (08:43)
[2017-09-25] MEDS: Carvedilol 6.25 MG TAB PO SCH ×3 (08:43→21:29)
[2017-09-25] MEDS: Enoxaparin Sodium 30 MG/0.3 ML SYRINGE SC SCH (08:44)
[2017-09-25] MEDS: Losartan 25 MG TAB PO SCH (08:45)
[2017-09-25] MEDS: Famotidine 20 MG TAB PO SCH ×2 (08:45→21:29)
[2017-09-25] MEDS: Saccharomyces boulardii 250 MG CAP PO SCH (08:46)
[2017-09-25] MEDS: Nystatin Cream 30 GM TUBE TOP SCH ×2 (08:46→21:31)
[2017-09-25] MEDS ORDERED: Carvedilol 3.125 MG TAB PO SCH (09:00)
--- NOTE | 2017-09-25 10:06 | CON ---
DATE OF SERVICE: 09/25/2017 SUBJECTIVE: Ms. Fleming appears to be back to her baseline. She states she has much less shortness of breath. OBJECTIVE: VITAL SIGNS: Blood pressure 164/85, pulse 87, temperature 97.6. LUNGS: Clear to auscultation. CARDIAC: Regular rate and rhythm. ABDOMEN: Soft, nontender, nondistended. EXTREMITIES: No edema. IMPRESSION: 1. Acute on chronic systolic heart failure. 2. Status post implantable cardioverter defibrillator. 3. Coronary artery disease, status post bypass surgery. RECOMMENDATIONS: Ms. Fleming appears to be back to her baseline. Her baseline weight was 233 and has decreased by 8 pounds over the last 3 days. From my standpoint, it would be okay to discharge with c lose outpatient followup.
--- NOTE | 2017-09-25 11:30 | PDOC.PN ---
- Subjective Encounter Start Date: 09/25/17 Encounter Start Time: 11:27 Subjective: refused to walk w PT & nurses.pt educated about the need to check O2 -: O/W feels back to baseline.wants to go home - Objective Resuscitation Status: Resuscitation Status FULL:Full Resuscitation MAR Reviewed: Yes Vital Signs & Weight: Vital Signs (12 hours) Temp Pulse Resp BP BP BP Pulse Ox 09/25/17 08:43 196/98 H 09/25/17 08:41 97.7 F 103 H 24 H 196/98 H 94 L 09/25/17 04:00 97.6 F 87 15 164/85 H 97 Weight Weight 225 lb 12.8 oz I&O: 09/24/17 09/25/17 09/26/17 06:59 06:59 06:59 Intake Total 1840 840 Output Total 1250 1000 Balance 590 -160 Result Diagrams: 09/22/17 05:04 09/25/17 04:43 Additional Labs: Microbiology 09/20/17 03:55 Venous blood - Left Hand Blood Culture - Final NO GROWTH IN 5 DAYS 09/20/17 03:49 Venous blood - Right Arm Blood Culture - Final NO GROWTH IN 5 DAYS Phys Exam - Physical Examination Constitutional: NAD HEENT: PERRLA, moist MMs, sclera anicteric, oral pharynx no lesions Neck: no nodes, no JVD, supple, full ROM Respiratory: no wheezing, no rales, no rhonchi, clear to auscultation bilateral Cardiovascular: RRR, no significant murmur Gastrointestinal: soft, non-tender, no distention, positive bowel sounds Musculoskeletal: no edema, pulses present Neurological: non-focal, normal sensation, moves all 4 limbs Psychiatric: normal affect, A&O x 3 Skin: no rash Dx/Plan (1) DARRIN (acute kidney injury) Code(s): N17.9 - ACUTE KIDNEY FAILURE, UNSPECIFIED Status: Acute Comment: due to diuretics (2) Acute CHF (congestive heart failure) Code(s): I50.9 - HEART FAILURE, UNSPECIFIED Status: Acute Comment: Patient Seen by Cardiology. has AICD (3) Demand ischemia Code(s): I24.8 - OTHER FORMS OF ACUTE ISCHEMIC HEART DISEASE Status: Acute (4) Ischemic cardiomyopathy Code(s): I25.5 - ISCHEMIC CARDIOMYOPATHY Status: Chronic Comment: AICD in place.EF 10-15% (5) Morbid obesity with BMI of 40.0-44.9, adult Code(s): E66.01 - MORBID (SEVERE) OBESITY DUE TO EXCESS CALORIES; Z68.41 - BODY MASS INDEX (BMI) 40.0-44.9, ADULT Status: Chronic Comment: Encourdeepe pt to Exercise after Cardiac Rehab. (6) CHRISTOPHER (obstructive sleep apnea) Code(s): G47.33 - OBSTRUCTIVE SLEEP APNEA (ADULT) (PEDIATRIC) Status: Chronic Comment: Will bree Monitor pt for Sleep apnea. CPAP at night, (7) CAD (coronary artery disease) Code(s): I25.10 - ATHSCL HEART DISEASE OF [place] CORONARY ARTERY W/O ANG PCTRS Status: Chronic Qualifiers: Comment: COntinue with Aspirin, Hold BB per cardilogy (8) HLD (hyperlipidemia) Code(s): E78.5 - HYPERLIPIDEMIA, UNSPECIFIED Status: Chronic Qualifiers: Comment: Continue Home Meds. (9) HTN (hypertension), benign Code(s): I10 - ESSENTIAL (PRIMARY) HYPERTENSION Status: Chronic Comment: Mor, Will continue to Monitor Keep sytolic >100 and hold Meds if needed. (10) Acute respiratory failure with hypoxia Code(s): J96.01 - ACUTE RESPIRATORY FAILURE WITH HYPOXIA Status: Resolved Comment: likely from CHF, will leonora Monitor continue diuresis. - Plan plan discussed w/ family, PT/OT, social insurance analyst, respiratory therapy, incentive spirometry, out of bed/ambulate, DVT proph w/SCDs Home O2 eval.if qualifies,will arrange thru . -: DC aissatou elater today w OP f/u.c -: cont to hold lasix for next few days -: pt educated again about the need for diet & fluid restrictions -: meds as below * . Review of Systems - Review of Systems Constitutional: weakness. negative: fever, chills, sweats, malaise, other ENT: negative: Ear Pain, Ear Discharge, Nose Pain, Nose Discharge, Nose Congestion, Mouth Pain, Mouth Swelling, Throat Pain, Throat Swelling, Other Respiratory: SOB with Excertion. negative: Cough, Dry, Shortness of Breath, Hemoptysis, Pleuritic Pain, Sputum, Wheezing Cardiovascular: negative: chest pain, palpitations, orthopnea, paroxysmal nocturnal dyspnea, edema, light headedness, other Gastrointestinal: negative: Nausea, Vomiting, Abdominal Pain, Diarrhea, Constipation, Melena, Hematochezia, Other Genitourinary: negative: Dysuria, Frequency, Incontinence, Hematuria, Retention , Other Musculoskeletal: negative: Neck Pain, Shoulder Pain, Arm Pain, Back Pain, Hand Pain, Leg Pain, Foot Pain, Other Skin: negative: Rash, Lesions, Davis, Bruising, Other Neurological: negative: Weakness, Numbness, Incoordination, Change in Speech, Confusion, Seizures, Other - Medications/Allergies Allergies/Adverse Reactions: Allergies Allergy/AdvReac Type Severity Reaction Status Date / Time lisinopril Allergy Verified 07/24/16 02:02 Medications: Current Medications Acetaminophen (Tylenol) 650 mg PO Q4H PRN PRN Reason: Headache/Fever or Pain Last Admin: 09/23/17 10:33 Dose: 650 mg Hydrocodone Bitart/Acetaminophen ([place] 5/325) 1 tab PO Q6H PRN PRN Reason: Pain 7-10 Hydrocodone Bitart/Acetaminophen ([place] 5/325) 1 tab PO Q4H PRN PRN Reason: Moderate Pain (4-6) Aspirin (Ecotrin) 325 mg PO DAILY [facility] Last Admin: 09/25/17 08:42 Dose: 325 mg Atorvastatin Calcium (Lipitor) 10 mg PO DAILY [facility] Last Admin: 09/25/17 08:43 Dose: 10 mg Carvedilol (Coreg) 6.25 mg PO TID [facility] Last Admin: 09/25/17 08:43 Dose: 6.25 mg Enoxaparin Sodium (Lovenox) 30 mg SC 0900 [facility] Last Admin: 09/25/17 08:44 Dose: 30 mg Famotidine (Pepcid) 20 mg PO BID [facility] Last Admin: 09/25/17 08:45 Dose: 20 mg Hydralazine HCl (Apresoline) 10 mg SLOW IVP Q4H PRN PRN Reason: Systolic BP > 180 Losartan Potassium (Cozaar) 100 mg PO DAILY [facility] Last Admin: 09/25/17 08:45 Dose: 100 mg Nystatin (Mycostatin Cream) 1 gm TOP BID [facility] Last Admin: 09/25/17 08:46 Dose: 1 gm Ondansetron HCl (Zofran Odt) 4 mg PO Q6H PRN PRN Reason: Nausea/Vomiting Ondansetron HCl (Zofran) 4 mg IVP Q6H PRN PRN Reason: Nausea/Vomiting Saccharomyces Boulardii (Florastor) 250 mg PO DAILY [facility] Last Admin: 09/25/17 08:46 Dose: 250 mg Sodium Chloride (Flush - Normal Saline) 10 ml IVF Q12HR [facility] Last Admin: 09/25/17 08:47 Dose: 10 ml Sodium Chloride (Flush - Normal Saline) 10 ml IVF PRN PRN PRN Reason: Saline Flush Last Admin: 09/23/17 04:49 Dose: 10 ml Spironolactone (Aldactone) 25 mg PO QAM-WM [facility] Last Admin: 09/25/17 08:42 Dose: 25 mg Tramadol HCl (Ultram) 50 mg PO QID PRN PRN Reason: Pain 4-6 Last Admin: 09/21/17 03:49 Dose: 50 mg
[2017-09-25] MEDS ORDERED: Potassium Chloride 20 MEQ TAB PO SCH (13:15)
--- NOTE | 2017-09-25 15:07 | DIS ---
DATE OF ADMISSION: 09/20/2017 DATE OF DISCHARGE: 09/25/2017 DISCHARGE DISPOSITION: Home with [facility]. DISCHARGE DIAGNOSES: 1. Acute respiratory failure with hypoxia, resolved. 2. Acute on chronic congestive heart failure. 3. Acute kidney insufficiency secondary to diuresis. 4. Demand ischemia. 5. Known history of ischemic cardiomyopathy with ejection fraction in the 10-15% range, status post AICD in the past. 6. Morbid obesity with a BMI over 40. 7. Obstructive sleep apnea. 8. Coronary artery disease. 9. Dyslipidemia. 10. Hypertension. PRIMARY CARE PHYSICIAN: Taniya Kim, nurse practitioner. DISCHARGE FOLLOWUP: With PCP and Cardiology, Dr. Brar. DISCHARGE MEDICATIONS: As follows, Celexa 20 mg daily, Lasix 40 mg daily, ranitidine 75 mg daily, Kl or-Con 10 mEq daily, sublingual nitroglycerin as needed, Aldactone 25 mg in the morning, Florastor 25 0 mg daily, Cozaar 100 mg daily, Coreg 6.25 mg p.o. t.i.d., atorvastatin 10 mg daily, aspirin 325 mg p.o. daily. CONSULTATIONS INHOUSE: Include Cardiology, Dr. Medina and Dr. Brar. PROCEDURES IN THE HOSPITAL: 1. Multiple chest x-rays. 2. Abdominal x-ray on the date of admission which was negative for obstruction. HISTORY OF PRESENTING ILLNESS: Ms. Fanny Fleming is a 72-year-old patient with known history of ische mariano cardiomyopathy, status post AICD, coronary artery disease, obesity, and hypertension with signifi cant history of noncompliance, who presented to the emergency room complaining of shortness of breath and cough. Upon presentation to the emergency room, she was found to be in congestive heart failure with elevated BNP and radiographic evidence of pulmonary edema. She was admitted and started on diu retics and Cardiology was consulted. Please see admission history and physical for further details. Her BNP was 2216, troponin was 0.076 at the time of admission. HOSPITAL COURSE: The patient was diuresed with good results. She had somewhat slow improvement. Sh e was seen by Cardiology and her medications were adjusted. She was educated extensively about the n eed for compliance and was encouraged to move around and visit with her nurse's assistant and primary care physician as an outpatient. The patient was very reluctant to work with physical therapy while why she was admitted in the hospital, but eventually when she started to feel better, she started to work with physical therapy a little bit. Home health was arranged for her. She had some acute renal insufficiency secondary to diuretics. She is instructed not to take Lasix f or the next 2 days and follow up with her primary care physician with recheck BMP in 3 days. Otherwi se, she is back to her baseline. She was evaluated for the candidacy for home oxygen, but her ambula tory oxygen saturation was above 90% and she did not qualify. She was seen and examined prior to discharge and was cleared by Cardiology for discharge as well. Loulou peacre is educated about heart failure, dietary indiscretion and fluid restriction and appears to understa nd at this time. All questions were answered. Prescriptions were provided. Please note that the me dication adjustments were done by Cardiology. Her admission weight was 237 and her discharge weight is 225 pounds. Please see hospitalist's progress note from the date of discharge for further detail including face t o face interaction. Total time spent in the discharge of this patient was 33 minutes.
[2017-09-25] MEDS ORDERED: Senokot S 8.6-50 MG TAB PO SCH (22:45)
[2017-09-25] MEDS ORDERED: Polyethylene Glycol 3350 17 GM Packet PO SCH (22:45)
[2017-09-26] MEDS: Saccharomyces boulardii 250 MG CAP PO SCH (08:02)
[2017-09-26] MEDS: Famotidine 20 MG TAB PO SCH (08:02)
[2017-09-26] MEDS: Losartan 25 MG TAB PO SCH (08:02)
[2017-09-26] MEDS: Atorvastatin Calcium 10 MG TAB PO SCH (08:03)
[2017-09-26] MEDS: Carvedilol 6.25 MG TAB PO SCH (08:03)
[2017-09-26] MEDS: Spironolactone 25 MG TAB PO SCH (08:10)
[2017-09-26] MEDS: Nystatin Cream 30 GM TUBE TOP SCH (08:10)
[2017-09-26] MEDS: Aspirin 325 mg Enteric Coated Tablet PO SCH (08:10)
[2017-09-26] MEDS: Enoxaparin Sodium 30 MG/0.3 ML SYRINGE SC SCH (08:11)
[2017-09-26 09:19] VITALS: TEMP 98.1
[2017-09-26 09:20] VITALS: BP 153/82
--- NOTE | 2017-09-26 12:20 | DIS ---
DATE OF ADMISSION: 09/20/2017 DATE OF DISCHARGE: 09/26/2017 Please note that the patient was discharged yesterday, but she was not able to be leave as she was ross ving difficulty urinating after removal of the Conklin catheter. For details, please refer to the disc harge summary dictated by myself yesterday on 09/25/2017. The patient has been voiding well since the removal of the catheter around 1:30 p.m. yesterday. She was seen and examined this morning and has been feeling well. Discharge vital signs include temp erature 98.1, pulse of 94, respirations 18, saturating 96% on room air, blood pressure 153/82. No ac resighini distress. She is still eager to go home. Her daughter is on her way to pick her up. Chest is c lear to auscultation bilaterally. Rate and rhythm is regular without any murmur, rubs or gallops. Abdomen is soft, nontender, and nondistended. The patient will resume her home medications as dictated in the discharge summary yesterday. She is instructed to hold Lasix for one more day and follow up with the primary care physician and cardiolog ist as an outpatient. She verbalized understanding. She is being discharged.
== END 2017-09-26 10:17 | disposition home or self-care (01) | DRG 291 ==
LOC: ERS 03:16 → 2NO 06:27
PROVIDERS: ADMIT Hospitalist; ATTEND Hospitalist
DX: I11.0 Hypertensive heart disease with heart failure (principal); J96.00 Acute respiratory failure, unspecified whether with hypoxia or hypercapnia; N17.9 Acute kidney failure, unspecified; I25.5 Ischemic cardiomyopathy; I25.10 Atherosclerotic heart disease of native coronary artery without angina pectoris; Z95.1 Presence of aortocoronary bypass graft; E66.9 Obesity, unspecified; I50.23 Acute on chronic systolic (congestive) heart failure; Z68.39 Body mass index [BMI] 39.0-39.9, adult; Z95.810 Presence of automatic (implantable) cardiac defibrillator; G47.33 Obstructive sleep apnea (adult) (pediatric); E78.5 Hyperlipidemia, unspecified; F41.1 Generalized anxiety disorder; T50.2X5A Adverse effect of carbonic-anhydrase inhibitors, benzothiadiazides and other diuretics, initial encounter; N28.9 Disorder of kidney and ureter, unspecified
CPT/HCPCS: 36415; 71045; 74018; 80048; 80053; 82553; 83880; 84484; 85025; 87040; 93005; 96374; A4216; G8978-GP-CM; G8979-GP-CJ; G8987-GO-CL; G8988-GO-CJ; J0360; J0696; J1650; J1940; J2405

== ENCOUNTER 2017-10-06 14:05 | Emergency (ER) | payer MEDICARE ==
[2017-10-06 14:56] LABS: #Basophils 0.1 thou/uL (0.0-0.2); #Eosinphils 0.1 thou/uL (0.0-0.7); #Lymphocytes 2.1 thou/uL (1.20-3.40); #Monocytes 0.5 thou/uL (0.11-0.59); %Basophils 1.2 % (0.0-1.0); %Eosinophils 1.3 % (0.0-10.0); %Monocytes 6.1 % (0.0-10.0); %Neutrophils 67.4 % (42.0-75.0); Hemoglobin 11.9 g/dL (12.0-16.0); Mean Corpuscular HGB CONC 31.5 g/dL (32.0-36.0); Mean Corpuscular Hemoglobin 26.1 pg (27.0-31.0); Mean Corpuscular Volume 83.1 fl (81.0-99.0); Mean Platelet Volume 8.2 fL (7.4-10.4); Platelet Count 217 thou/uL (130-400); RBC Distribution Width 16.8 % (11.5-14.5); Red Blood Cell (RBC) Count 4.56 mill/uL (4.20-5.40); White Blood Cell (WBC) Count 8.9 thou/uL (4.8-10.8)
--- NOTE | 2017-10-06 15:20 | RAD ---
AP VIEW CHEST: Date: 10/06/17 INDICATION: Weakness with decreased appetite. FINDINGS: There is cardiomegaly with pulmonary vascular congestion, with small bilateral pleural effusions. Thi s was present on the comparison examination and appears slightly less prominent. There is some persis tent infrahilar opacity within the right lung base, which may be related to subsegmental atelectasis; however, a component of pneumonia is not excluded. 2 view chest radiograph recommended. Multilead AI CD is unchanged. Sternotomy change is similar. The proximal left humerus fracture is unchanged. IMPRESSION: 1. Findings suggesting CHF. 2. Right infrahilar air space opacity may reflect an area of air space edema; however, pneumonia is not excluded. Recommend correlation with clinical examination. 3. Persistent left proximal humerus fracture. POS: [id number]
[2017-10-06 15:22] LABS: CKMB 1.2 ng/mL (0-6.6); Troponin I 0.071 ng/mL (< 0.028)
[2017-10-06 16:17] LABS: Bilirubin Small (Negative); Blood, Urine Negative (Negative); Clarity CLOUDY (Clear); Glucose, Urine (Dipstick) Negative (Negative); Leukocyte Negative (Negative); Nitrite Negative (Negative); Protein, Urine (Dipstick) Negative (Neg-Trace); Specific Gravity, Urine 1.021 (1.002-1.036); pH, Urine 5.5 (5.0-9.0)
[2017-10-06] MEDS ORDERED: Furosemide 20 MG/2 ML VIAL ONE (16:29)
[2017-10-06 17:39] LABS: Anion Gap 12 mmol/L (10-20); BUN (Urea Nitrogen) 13 mg/dL (9.8-20.1); Calc. Creatinine Clearance 0 mL/min (70-130); Calcium 8.5 mg/dL (7.8-10.44); Carbon Dioxide 25 mmol/L (23-31); Chloride 108 mmol/L (98-107); Estimated GFR-MDRD 76; Glucose 99 mg/dL (83-110); Potassium 3.3 mmol/L (3.5-5.1); Sodium 142 mmol/L (136-145)
--- NOTE | 2017-10-10 15:57 | EKG ---
Test Reason : WEAKNESS Blood Pressure : / mmHG Vent. Rate : 086 BPM Atrial Rate : 086 BPM P-R Int : 140 ms QRS Dur : 098 ms QT Int : 420 ms P-R-T Axes : 055 060 101 degrees QTc Int : 502 ms Sinus rhythm with marked sinus arrhythmia with Premature atrial complexes Nonspecific ST and T wave abnormality Prolonged QT Abnormal ECG Confirmed by JOHNSON ROQUE, CHER ([id number]), advertising editor SONU POWELL ([id number]) on 10/10/2017 3:56:22 PM Referred By: Confirmed By:CHER ORNELAS MD
== END 2017-10-06 19:58 | disposition home or self-care (01) ==
LOC: ERS 14:05
DX: I11.0 Hypertensive heart disease with heart failure (principal); I50.9 Heart failure, unspecified; F41.9 Anxiety disorder, unspecified; Z79.82 Long term (current) use of aspirin; Z79.899 Other long term (current) drug therapy
CPT/HCPCS: 36415; 51701; 71045; 80048; 81003; 82553; 83880; 84484; 85025; 93005; 96374; A4353; J1940